=== PATIENT | female | born 1960 | race Caucasian/White ===

== ENCOUNTER → 2024-09-30 | Outpatient (CLI) | payer MEDICARE, SELFPAY ==
--- NOTE | 2024-09-30 13:59 | RAD_ITS ---
PROCEDURE: FINGER(S) MIN 2 VIEWS 09/30/2024 REASON FOR EXAM: CYST 5TH FINGER TECHNIQUE: FINGER(S) MIN 2 VIEWS LEFT 5TH FINGER. COMPARISON: None. FINDINGS: Well-defined 1.4 x 1.2 cm soft tissue lesion is noted overlying the dorsal/distal aspect of the middle phalanx. Mild osteopenia of the visualized bones. Degenerative joint disease. No fracture or dislocation is seen. No lytic or blastic bone lesion is noted. RAD/Finger(s) Min 2 Views IMPRESSION: Well-defined 1.4 x 1.2 cm soft tissue lesion is noted overlying the dorsal/dist al aspect of the middle phalanx. No radiographic evidence of an associated significant erosive bone abnormality. No bony mass is identified. Reading Location[facility]
--- OUTSIDE RECORDS SUMMARY | 2024-09-30 15:42 | XMS RPT_ITS | CCD ---
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 Carlos Primary Care Unavailable Zarrabi, Dr. Carlos Attending Unavailable Zarrabi, Dr. Carlos Referring Unavailable Zarrabi, Dr. Carlos Primary Care Unavailable Zarrabi, Dr. Carlos Attending Unavailable Zarrabi, Dr. Carlos Referring Unavailable Zarrabi, Dr. Carlos Primary Care Unavailable Brady Becker Attending Unavailable Zarrstephanie, Dr. Carlos Primary Care Unavailable Brady Becker Attending Unavailable Brady Becker Referring Unavailable Breanna Obrien Primary Care Unavailable Breanna Obrien Primary Care Unavailable , Dr. Greg Arevalo Attending Unavail able Dr. Greg Xiao Referring Unavail able MD NADIR NEGRON Admitting U navailable MD NADIR NEGRON Attending U navailable Breanna Obrien Primary Care Unavailable Breanna Obrien Referring Unavailable Breanna Obrien MD Primary Care Provider Breanna Obrien MD Unavailable Breanna Obrien MD Unavailable BREANNA OBRIEN Referring Unavailable [facility] Primary Care Unavailable BRADY BECKER Referring Unavailable [facility] Primary Care Unavailable Breanna Obrien MD Primary Care Provider Breanna Obrien MD Unavailable BRADY BECKER Attending Unavailable [facility] Primary Care Unavailable [facility] Attending Unavailable [facility] Primary Care Unavailable Elpidio HART, Dr. Nair Primary Care Provider Dr. Joanie Magallanes DO Referring Provider [phone] Dr. Sanjiv Cancino MD Attending Provider [phone] Medications Current Medications Medication Drug Class(es) Dates Sig (Normalized) Sig (Original) azithromycin 250 mg oral tablet (1 source) Macrolide Antimicrobial Start: 01-15-2021 Azithromycin 250 MG Oral Tablet TAKE DIRECTED. Quantity: 6 Refills: 0 Ordered: 15-Jan-2021 Breanna Obrien MD Start : 15-Jan-2021 Active Start: 01-15-2021 Azithromycin 2 50 MG Oral Tablet TAKE DIRECTED. Quantity: 6 Refills: 0 Ordered: 15-Jan-2021 Breanna Obrien MD Start : 15-Jan-2021 Active brompheniramine maleate 0.4 mg/ml / dextromethorphan hydrobromide 2 mg/ml / pseudoephedrine hydrochloride 6 mg/ml oral solution (1 source) alpha-Adrenergic Agonist, Uncompetitive U-qerjec-V-aspartate Receptor Antagonist, Sigma-1 Agonist Start: 01-05-2021 take 5 mL by mouth four times daily brompheniramine/pseudoephedrine/dextrome thorphan [id number]/5 mL oral syrup ; 5 milliliter(s) orally 4 times a day MAY CAUSE DROWSINESS, DO NOT DRIVE Quantity: 120 Refills: 0 Ordered: 05-Jan-2021 Clifford Day Start: 05-Jan-2021 Generic Substitution Allowed Comments: May cause drowsiness. Alcohol may intensify this effect. Use care when operating dangerous machinery.Obtain medical advice before taking any non-prescription drugs as some may affect the action of this medication. Comment on above: May cause drowsiness . Alcohol may intensify this effect. Use care when operating dangerous machinery.Obtain medical advice before taking any non-prescription drugs as some may affect the action of this medication. cholecalciferol 52955 unt oral capsule (15 sources) Vitamin D Start: 07-05-2009 Cholecalciferol (D3-50) 5000 0 units Cap Take by mouth. 0 07/05/2009 Active Vitamin D 1000 U NIT TABS TAKE 1 TABLET DAILY. Quantity: 0 Refills: 0 Ordered: 20-Apr-2019 DO Active ciprofloxacin 500 mg oral tablet (1 source) Quinolone Antimicrobial Start: 04-20-2020 End: 01-15-2021 take 1 tablet by mouth twice daily Ciprofloxacin HCl - 500 MG Oral Tablet Take 1 tablet twice daily Quantity: 6 Refills: 0 Ordered: 20-Apr-2020 Breanna Obrien MD Start : 20-Apr-2020 End : 15-Jan-2021 Complete ergocalciferol 1.25 mg oral capsule (6 sources) Provitamin D2 Compound Start: 09-02-2024 take 1 capsule by mouth two times weekly ergocalciferol (Vitamin D-2) 1250 mcg (50,000 units) capsule Indications: Vitamin D deficiency Take 1 capsule (50,000 Units) by mouth 2 times a week. 8 capsule 09/02/2024 Active Start: 09-02-2024 [facility] ergocalciferol (Vitamin D-2) 1250 mcg (50,000 units) capsule Indications: Vitamin D deficiency Take 1 capsule (50,000 Units) by mouth 2 times a week. 8 capsule 09/02/2024 Active Start: 07-24-2023 End: 09-01-2024 take 1 capsule by mouth two times weekly ergocalciferol (Vitamin D-2) 1.25 MG (05863 UT) capsule Indications: Vitamin D deficiency Take 1 capsule (50,000 Units) by mouth 2 times a week. 8 capsule 07/24/2023 09/01/2024 Discontinued (Reorder) estradiol 0.1 mg/ml vaginal cream (17 sources) Estrogen Start: 03-14-2021 End: 04-02-2024 estradiol (Estrace) 0.01 % (0.1 mg/gram) vaginal cream Insert 0.5 Applicatorfuls (2 g) into the vagina once daily. 03/14/2021 04/02/2024 Discontinued (Med List Cleanup) Start: 03-14-2021 Estradiol 0.1 MG/GM Vaginal Cream Take 1g vaginally daily for two weeks. Then decrease to 1-3 times weekly to comfot. Quantity: 1 Refills: 3 Ordered: 14-Mar-2021 [id number] Sosa DO Start : 14-Mar-2021 Active ipratropium bromide 0.042 mg/actuat metered dose nasal spray (1 source) Anticholinergic Start: 01-05-2021 End: 01-09-2021 ipratropium 42 mcg/inh (0.06%) nasal spray ; 2 spray(s) intranasally every 8 hours Quantity: 1 Refills: 0 Ordered: 05-Jan-2021 Clifford Day Start: 05-Jan-2021 End: 09-Jan-2021 Generic Substitution Allowed Comments: For the nose.It is very important that you take or use this exactly as directed. Do not skip doses or discontinue unless directed by your doctor. Comment on above: For the nose.It is v chloe important that you take or use this exactly as directed. Do not skip doses or discontinue unless directed by your doctor. levothyroxine (20 sources) l-Thyroxine Start: 09-30-2024 take 1 tablet by mouth once daily Levothyroxine 150 mcg tablet Active 150 ug PO daily September 30, 2024 12:00am Start: 09-29-2024 take 1 tablet by yakov th once daily levothyroxine (Synthroid, Levoxyl) 125 mcg tablet Indications: Adult hypothyroidism Take 1 tablet (125 mcg) by mouth once daily. 30 tablet 09/29/2024 Active Start: 08-03-2024 End: 09-29-2024 take 1 tablet by mouth once daily levothyroxine (Synthroid, Levoxyl) 150 mcg tablet Indications: Adult hypothyroidism Take 1 tablet (150 mcg) by mouth once daily. 30 tablet 09/01/2024 09/29/2024 Discontinued (Reorder) Start: 06-19-2023 End: 07-23-2023 take 1 tablet by mouth once daily levothyroxine (Synthroid, Levoxyl) 150 mcg tablet Indications: Adult hypothyroidism Take 1 tablet (150 mcg) by mouth once daily. 30 tablet 11 07/23/2023 Active Start: 01-25-2016 take 1 tablet by yakov th once daily levothyroxine 175 MCG Tab tablet TAKE 1 TABLET BY MOUTH EVERY DAY 0 01/25/2016 Active take 1 tablet by yakov th once daily levothyroxine (Synthroid, Levoxyl) 150 mcg tablet Take 1 tablet (150 mcg) by mouth once daily. 0 Active take 1 tablet by yakov th once daily Levothroid 175 mcg (0.175 mg) oral tablet ; 1 tab(s) orally once a day Quantity: 0 Refills: 0 Ordered: 15-Mar-2019 Madiha Murdock Generic Substitution Allowed lisinopril 10 mg oral tablet (20 sources) Angiotensin Converting Enzyme Inhibitor Start: 08-30-2024 End: 09-01-2024 take 1 tablet by mouth once daily Lisinopril 10 mg tablet Active 10 mg PO daily September 30, 2024 12:00am Start: 06-19-2023 End: 07-23-2023 take 1 tablet by mouth once daily lisinopril 10 mg tablet Indications: Benign essential HTN Take 1 tablet (10 mg) by mouth once daily. 30 tablet 11 07/23/2023 Active Start: 12-28-2018 lisinopril 10 MG Tab tablet 10 mg daily. 11 12/28/2018 Active metFORMIN hydrochloride 500 mg oral tablet (3 sources) Biguanide Start: 09-29-2024 take 1 tablet by mouth once daily at breakfast metFORMIN (Glucophage) 500 mg tablet Indications: Impaired fasting glucose Take 1 tablet (500 mg) by mouth once daily with breakfast. 90 tablet 3 09/29/2024 Active Start: 09-19-2024 End: 09-29-2024 take 0.5 tablet by mouth once daily at breakfast metFORMIN (Glucophage) 500 mg tablet Indications: Impaired fasting glucose Take 0.5 tablets (250 mg) by mouth once daily with breakfast. 45 tablet 3 09/19/2024 09/29/2024 Discontinued (Reorder) Start: 09-01-2024 take 0.5 tablet by m outh once daily at breakfast metFORMIN (Glucophage) 500 mg tablet Indications: Impaired fasting glucose Take 0.5 tablets (250 mg) by mouth once daily with breakfast. 15 tablet 11 09/01/2024 Active methylPREDNISolone 4 MG Oral Tablet Therapy Pack (1 source) Start: 01-15-2021 methylPREDNISolone 4 MG Oral Tablet Therapy Pack as directed Quantity: 21 Refills: 0 Ordered: 15-Jan-2021 Breanna Obrien MD Start : 15-Jan-2021 Active Multivitamin preparation (1 source) take 1 tablet by mouth once daily Multiple Vitamins oral tablet ; 1 tab(s) orally once a day Quantity: 0 Refills: 0 Ordered: 15-Mar-2019 Madiha Murdock Generic Substitution Allowed phenazopyridine hydrochloride 200 mg delayed release oral tablet (1 source) Start: 04-20-2020 End: 01-15-2021 take 1 tablet by mouth three times daily after mealtime as needed Phenazopyridine HCl - 200 MG Oral Tablet TAKE 1 TABLET 3 TIMES DAILY AFTER MEALS NEEDED Quantity: 9 Refills: 0 Ordered: 20-Apr-2020 Breanna Obrien MD Start : 20-Apr-2020 End : 15-Jan-2021 Complete phenol 14 mg/ml mucosal spray (1 source) Start: 01-05-2021 take 1 spray(s) by mouth every two hours Chloraseptic [place] 1.4% topical spray ; 1 spray(s) orally every 2 hours Quantity: 1 Refills: 0 Ordered: 05-Jan-2021 Clifford Day Start: 05-Jan-2021 Generic Substitution Allowed Comments: For external use only. Comment on above: For external use onl y. valACYclovir 1000 mg oral tablet (1 source) Herpesvirus Nucleoside Analog DNA Polymerase Inhibitor, Herpes Simplex Virus Nucleoside Analog DNA Polymerase Inhibitor, Herpes Zoster Virus Nucleoside Analog DNA Polymerase Inhibitor Start: 01-18-2019 End: 01-25-2019 take 1 tablet by mouth three times daily valacyclovir 1 g Tab Take 1 tablet by mouth 3 times daily for 7 days. 21 tablet 0 01/18/2019 01/25/2019 Active Problems Active Problems Problem Classification Problem Date Documented Date Episodic/Chronic Anxiety disorders (20 sources) Mixed anxiety and depressive disorder; Translations: [Dysthymic disorder] Onset: 06-23-2023 06-23-2023 Chronic Calculus of urinary tract (13 sources) History of calculus of kidney; Translations: [Personal history of urinary calculi] Episodic Diabetes mellitus without complication (20 sources) Impaired glucose tolerance; Translations: [Impaired glucose tolerance test (oral)] Onset: 06-23-2023 Resolved: 09-01-2024 07-02-2023 Episodic Disorders of lipid metabolism (20 sources) Hyperlipidemia; Translations: [Other and unspecified hyperlipidemia] Onset: 06-23-2023 07-02-2023 Chronic Essential hypertension (20 sources) Benign essential hypertension; Translations: [Benign essential hypertension] Onset: 06-23-2023 07-02-2023 Chronic Genitourinary symptoms and ill-defined conditions (12 sources) Dysuria; Translations: [Dysuria] Episodic Hypertension with complications and secondary hypertension (1 source) Secondary hypertension; Translations: [Secondary hypertension, unspecified] 07-02-2023 Chronic Malaise and fatigue (3 sources) Fatigue; Translations: [Chronic fatigue, unspecified] Onset: 09-01-2024 09-01-2024 Chronic Malaise and fatigue (3 sources) Fatigue; Translations: [Other malaise and fatigue] 07-02-2023 Episodic Menopausal disorders (19 sources) Menopausal symptom; Translations: [Symptomatic menopausal or female climacteric states] Onset: 06-23-2023 06-23-2023 Chronic Nutritional deficiencies (13 sources) Vitamin D deficiency; Translations: [Vitamin D deficiency, unspecified] Onset: 07-05-2009 07-02-2023 Chronic Other and unspecified benign neoplasm (1 source) Personal history of colonic polyps; Translations: [Personal history of colonic polyps] Onset: 06-06-2022 Episodic Other circulatory disease (1 source) Pulmonary congestion ; Translations: [Other symptoms involving respiratory system and chest] Episodic Other connective tissue disease (2 sources) Pain in finger; Translations: [Pain in limb] Episodic Other connective tissue disease (1 source) Digital mucous cyst of left hand; Translations: [Ganglion, left hand] 09-30-2024 Episodic Other lower respiratory disease (2 sources) Cough; Translations: [Cough] Episodic Other nutritional; endocrine; and metabolic disorders (12 sources) Obesity; Translations: [Obesity, unspecified] Chronic Other nutritional; endocrine; and metabolic disorders (11 sources) Body mass index 40+ - severely obese; Translations: [Morbid obesity] Onset: 09-01-2024 09-01-2024 Chronic Other nutritional; endocrine; and metabolic disorders (11 sources) Hypocalcemia; Translations: [Hypocalcemia] Onset: 06-23-2023 07-02-2023 Chronic Other nutritional; endocrine; and metabolic disorders (8 sources) Obese class II; Translations: [Obesity, unspecified] Onset: 01-18-2019 06-23-2023 Chronic Other nutritional; endocrine; and metabolic disorders (14 sources) H/O: nutritional disorder; Translations: [Personal history of nutritional deficiency] Episodic Other nutritional; endocrine; and metabolic disorders (1 source) Obese class II; Translations: [Obesity, Class II, BMI 35-39.9] Onset: 01-18-2019 01-18-2019 Other skin disorders (11 sources) Senile hyperkeratosis; Translations: [Actinic keratosis] Episodic Other skin disorders (2 sources) Lump on finger; Translations: [Localized superficial swelling, mass, or lump] Episodic Other skin disorders (2 sources) Trachyonychia; Translations: [Other specified diseases of nail] Episodic Residual codes; unclassified (14 sources) H/O: ; Translations: [Personal history of other genital system and obstetric disorders] Episodic Comment on above: 05/14/1979-42 WEEKS, VAGIMAL, FEMALE,#7 7oz07/24/1982-40 WEEKS, VAGINAL, MALE, #8 14oz; Residual codes; unclassified (19 sources) History of clinical finding in subject; Translations: [Asymptomatic postmenopausal status (age-related) (natural)] Episodic Comment on above: 2007; Residual codes; unclassified (13 sources) Influenza vaccination declined; Translations: [Vaccination not carried out because of patient refusal] Episodic Comment on above: PT DECLINED ; Residual codes; unclassified (5 sources) Postmenopausal state; Translations: [Asymptomatic postmenopausal status (age-related) (natural)] 07-02-2023 Episodic Screening and history of mental health and substance abuse codes (2 sources) Screening - NAD; Translations: [Screening for depression] Episodic Thyroid disorders (20 sources) Hypothyroidism; Translations: [Unspecified acquired hypothyroidism] Onset: 06-23-2023 07-02-2023 Chronic Unclassified (6 sources) Patient encounter status; Translations: [History of Encounter for cervical Pap smear with pelvic exam] 04-02-2024 Unclassified (2 sources) COUGH/ INCREASED TEMP & SORE THROAT 09-24-2021 Comment on above: COUGH/ INCREASED TEM P & SORE THROAT Unclassified (1 source) Patient encounter procedure 2020 Comment on above: YEARLY Urinary tract infections (1 source) Acute cystitis; Translations: [Acute cystitis] Episodic Viral infection (2 sources) Herpes zoster without complication; Translations: [Disease caused by 2019-nCoV] Episodic Past or Other Problems Problem Classification Problem Date Documented Da te Episodic/Chronic Abdominal pain (13 sources) Inguinal pain; Translations: [Abdominal pain, other specified site] Onset: 06-23-2023 Resolved: 07-02-2023 07-02-2023 Episodic Other and unspecified benign neoplasm (10 sources) Polyp of colon; Translations: [Benign neoplasm of colon] Onset: 06-23-2023 06-23-2023 Episodic Other bone disease and musculoskeletal deformities (20 sources) Osteopenia; Translations: [Disorder of bone and cartilage, unspecified] Onset: 06-23-2023 06-23-2023 Episodic Other connective tissue disease (20 sources) Fibromyalgia; Translations: [Myalgia and myositis, unspecified] Onset: 06-23-2023 06-23-2023 Episodic Other connective tissue disease (10 sources) Ganglion cyst; Translations: [Ganglion, unspecified] Onset: 06-23-2023 06-23-2023 Episodic Other infections; including parasitic (20 sources) Personal history of other infectious and parasitic diseases; Translations: [History of COVID-19] Onset: 06-23-2023 06-23-2023 Episodic Other liver diseases (17 sources) Elevated total bilirubin; Translations: [Disorders of bilirubin excretion] Onset: 07-23-2023 07-23-2023 Episodic Other screening for suspected conditions (not mental disorders or infectious disease) (20 sources) Liver function tests abnormal; Translations: [Thyroid hormone tests abnormal] Onset: 03-26-2022 Resolved: 07-02-2023 Episodic Residual codes; unclassified (20 sources) Past history of procedure; Translations: [Other specified personal history presenting hazards to health] Onset: 10-22-2018 Episodic Comment on above: OSTEOPENIA LUMBAR ; 03/17/20 BenignCAT 2; 04/02/2021: WNL1 BenignCAT 2; Residual codes; unclassified (20 sources) Insomnia; Translations: [Insomnia, unspecified] Onset: 06-23-2023 06-23-2023 Episodic Residual codes; unclassified (2 sources) Asymptomatic menopausal state; Translations: [Asymptomatic menopausal state] Onset: 07-09-2023 Episodic Spondylosis; intervertebral disc disorders; other back problems (20 sources) Chronic low back pain; Translations: [Lumbar radiculopathy] Onset: 06-23-2023 06-23-2023 Episodic Unclassified (1 source) Cancer cervix screening status; Translations: [Screening for cervical cancer] Unclassified (1 source) History of clinical finding in subject; Translations: [History of menopause] Unclassified (8 sources) Onset: 07-02-2023 Resolved: 09-29-2024 07-02-2023 NEGATED: Highlighted row has not occurred!Residual codes; unclassified (3 sources) Disease Episodic Results Test Name Value Interpretation Reference Range Facility BI MAMMO BILATERAL SCREENING TOMOSYNTHESISon 04-26-2024 BI MAMMO BILATERAL SCREENING TOMOSYNTHESIS Interpreted By: Ayush Michele, STUDY: BI MAMMO BILATERAL SCREENING TOMOSYNTHESIS; 04/26/2024 9:20 am ACCESSION NUMBER(S): [id number] ORDERING CLINICIAN: BRADY BECKER INDICATION: Screening. COMPARISON: Digital mammograms dated 04/24/2023 FINDINGS: CC and MLO 2D digital mammograms and digital breast tomosynthesis images were obtained of the bilateral breasts. 3-D volume images were reconstructed in 4 views at an independent workstation as 1 mm slices through the breasts in both the CC and MLO projections. Density: The breasts are almost entirely fatty. Scattered small rounded masses are seen bilaterally, similar to the prior study. No new or enlarging mass or focal asymmetry is identified. No suspicious microcalcifications or foci of architectural distortion are seen. There has been no significant change. This study was interpreted with CAD. IMPRESSION: No mammographic evidence of malignancy. BI-RADS CATEGORY: BI-RADS Category: 2 Benign. Recommendation: Annual Screening. Recommended Date: 1 Year. Laterality: Bilateral. MACRO: None Signed by: Ayush Michele 04/26/2024 11:50 AM Dictation workstation: [id number] [facility] DBT Breast - bilateralon No mammographic evid ence of malignancy. BI-RADS CATEGORY: BI-RADS Category: 2 Benign. Recommendation: Annual Screening. Recommended Date: 1 Year. Laterality: Bilateral. MACRO: None Signed by: Ayush Michele 04/26/2024 11:50 AM Dictation workstation: [id number] MMODAL Interpreted By: Ayush Lynch, STUDY: BI MAMMO BILATERAL SCREENING TOMOSYNTHESIS; 04/26/2024 9:20 am ACCESSION NUMBER(S): [id number] ORDERING CLINICIAN: BRADY BECKER INDICATION: Screening. COMPARISON: Digital mammograms dated 04/24/2023 FINDINGS: CC and MLO 2D digital mammograms and digital breast tomosynthesis images were obtained of the bilateral breasts. 3-D volume images were reconstructed in 4 views at an independent workstation as 1 mm slices through the breasts in both the CC and MLO projections. Density: The breasts are almost entirely fatty. Scattered small rounded masses are seen bilaterally, similar to the prior study. No new or enlarging mass or focal asymmetry is identified. No suspicious microcalcifications or foci of architectural distortion are seen. There has been no significant change. This study was interpreted with CAD. MMODAL Ayush Michele MD - 04/26/2024 Interpreted By: Ayush Michele, STUDY: BI MAMMO BILATERAL SCREENING TOMOSYNTHESIS; 04/26/2024 9:20 am ACCESSION NUMBER(S): [id number] ORDERING CLINICIAN: BRADY BECKER INDICATION: Screening. COMPARISON: Digital mammograms dated 04/24/2023 FINDINGS: CC and MLO 2D digital mammograms and digital breast tomosynthesis images were obtained of the bilateral breasts. 3-D volume images were reconstructed in 4 views at an independent workstation as 1 mm slices through the breasts in both the CC and MLO projections. Density: The breasts are almost entirely fatty. Scattered small rounded masses are seen bilaterally, similar to the prior study. No new or enlarging mass or focal asymmetry is identified. No suspicious microcalcifications or foci of architectural distortion are seen. There has been no significant change. This study was interpreted with CAD. IMPRESSION: No mammographic evidence of malignancy. BI-RADS CATEGORY: BI-RADS Category: 2 Benign. Recommendation: Annual Screening. Recommended Date: 1 Year. Laterality: Bilateral. MACRO: None Signed by: Ayush Michele 04/26/2024 11:50 AM Dictation workstation: [id number] [facility] Work Phone: Radiology Study observation (narrative) [facility] Work Phone: DBT Breast - bilateralOrdere d By: Ayush Michele on 04-26-2024 [facility] Work Phone: Cervical AND or Vaginal cyto logy studyon 04-02-2024 Cytology Cervical or vaginal smear or scraping study Pathology report.total SEE COMMENT Gynecologic Cytology Case: [id number] Authorizing Provider: Brady Becker MD Collected: 04/02/2024 0840 Ordering Location: [facility] Received: 04/02/2024 0840 Office Building First Screen: TOM Bee Specimen: ThinPrep Liquid-Based Pap-Imaging System Screen, CERVIX, SCREENING Cytology study comment SEE COMMENT A. THINPREP PAP CERVIX, SCREENING - Specimen Adequacy Satisfactory for evaluation; endocervical/transformation zone component is present General Categorization Negative for intraepithelial lesion or malignancy. Descriptive Interpretation Negative for intraepithelial lesion or malignancy Specimen does not meet the requisition-stated criteria for HPV testing. See Pap test interpretation above. Laboratory comment SEE COMMENT Slide(s) initially screened by TOM QUINONES at [address] [id number] By the signature on this report, the individual or group listed as making the Final Interpretation/Diagnosis certifies that they have reviewed this case. This specimen has been analyzed by the ThinPrep Imaging System ([employer] an automated imaging and review system, which assists the laboratory in evaluating cells on ThinPrep Pap tests. Following automated imaging, selected jurado from every slide were reviewed by a garment patternmaker and/or pathologist. Cervical cytology is a screening procedure primarily for squamous cancers and precursors and has associated false-negative and false-positives results as evidenced by published data. Your patient's test should be interpreted in this context, together with the patient's history and clinical findings. Regular sampling and follow-up of unexplained clinical signs and symptoms are recommended to minimize false negative results. LAB AP HPV HR Reflex if ASCUS only LAB AP HPV GENOTYPE QUESTION Yes Menstrual History Post-menopausal Normal [facility] Ambulatory DEXA BONE DENSITYon 07-09-19 24 DEXA BONE DENSITY Interpreted By: Ayush Lynch, STUDY: DEXA BONE DENSITY07/09/2023 7:59 am INDICATION: Signs/Symptoms:screening. The patient is a 63 y/o year old F. COMPARISON: 01/08/2019 ACCESSION NUMBER(S): [id number] ORDERING CLINICIAN: BREANNA OBRIEN TECHNIQUE: DEXA BONE DENSITY FINDINGS: SPINE L1-L4 Bone Mineral Density: 1.105 T-Score -0.7 Z-Score 0.8 Bone Mineral Density change vs baseline: Not reported Bone Mineral Density change vs previous: Not reported LEFT FEMUR -TOTAL Bone Mineral Density: 0.942 T-Score -0.5 Z-Score 0.6 Bone Mineral Density change vs baseline: Not reported Bone Mineral Density change vs previous: Not reported LEFT FEMUR -NECK Bone Mineral Density: 0.846 T-Score -1.4 Z-Score 0.0 RIGHT FEMUR -TOTAL Bone Mineral Density: 0.995 T-Score -0.1 Z-Score 1.0 Bone Mineral Density change vs baseline: Not reported Bone Mineral Density change vs previous: Not reported RIGHT FEMUR -NECK Bone Mineral Density: 0.917 T-Score -0.9 Z-Score 0.6 World Health Organization (WHO) criteria for post-menopausal, Women: Normal: T-score at or above -1 SD Osteopenia: T-score between -1 and -2.5 SD Osteoporosis: T-score at or below -2.5 SD 10-year Fracture Risk: Major Osteoporotic Fracture 7.5 Hip Fracture 0.6 Note: If no FRAX score is reported, it is because: Some T-score for Spine Total or Hip Total or Femoral Neck at or below -2.5 This exam was performed at Health system's [facility] on a [employer] Advanced Dexa Unit. IMPRESSION: DEXA: According to World Health Organization criteria, classification is low bone mass (osteopenia) Followup recommended in two years or sooner as clinically warranted. All images and detailed analysis are available on the Radiology PACS. MACRO: None Signed by: Ayush Michele 07/09/2023 11:21 AM Dictation workstation: [id number] [facility] DXA Skeletal system Views fo r bone densityon 07-09-2023 DEXA: According to W orld Health Organization criteria, classification is low bone mass (osteopenia) Followup recommended in two years or sooner as clinically warranted. All images and detailed analysis are available on the Radiology PACS. MACRO: None Signed by: Ayush Michele 07/09/2023 11:21 AM Dictation workstation: [id number] MMODAL Interpreted By: Ayush Lynch, STUDY: DEXA BONE DENSITY07/09/2023 7:59 am INDICATION: Signs/Symptoms:screening. The patient is a 63 y/o year old F. COMPARISON: 01/08/2019 ACCESSION NUMBER(S): [id number] ORDERING CLINICIAN: BREANNA OBRIEN TECHNIQUE: DEXA BONE DENSITY FINDINGS: SPINE L1-L4 Bone Mineral Density: 1.105 T-Score -0.7 Z-Score 0.8 Bone Mineral Density change vs baseline: Not reported Bone Mineral Density change vs previous: Not reported LEFT FEMUR -TOTAL Bone Mineral Density: 0.942 T-Score -0.5 Z-Score 0.6 Bone Mineral Density change vs baseline: Not reported Bone Mineral Density change vs previous: Not reported LEFT FEMUR -NECK Bone Mineral Density: 0.846 T-Score -1.4 Z-Score 0.0 RIGHT FEMUR -TOTAL Bone Mineral Density: 0.995 T-Score -0.1 Z-Score 1.0 Bone Mineral Density change vs baseline: Not reported Bone Mineral Density change vs previous: Not reported RIGHT FEMUR -NECK Bone Mineral Density: 0.917 T-Score -0.9 Z-Score 0.6 World Health Organization (WHO) criteria for post-menopausal, Women: Normal: T-score at or above -1 SD Osteopenia: T-score between -1 and -2.5 SD Osteoporosis: T-score at or below -2.5 SD 10-year Fracture Risk: Major Osteoporotic Fracture 7.5 Hip Fracture 0.6 Note: If no FRAX score is reported, it is because: Some T-score for Spine Total or Hip Total or Femoral Neck at or below -2.5 This exam was performed at [facility] on a [employer] Advanced Dexa Unit. Ayush Segundo MD - 07/09/2023 Interpreted By: Ayush Michele, STUDY: DEXA BONE DENSITY07/09/2023 7:59 am INDICATION: Signs/Symptoms:screening. The patient is a 63 y/o year old F. COMPARISON: 01/08/2019 ACCESSION NUMBER(S): [id number] ORDERING CLINICIAN: BREANNA OBRIEN TECHNIQUE: DEXA BONE DENSITY FINDINGS: SPINE L1-L4 Bone Mineral Density: 1.105 T-Score -0.7 Z-Score 0.8 Bone Mineral Density change vs baseline: Not reported Bone Mineral Density change vs previous: Not reported LEFT FEMUR -TOTAL Bone Mineral Density: 0.942 T-Score -0.5 Z-Score 0.6 Bone Mineral Density change vs baseline: Not reported Bone Mineral Density change vs previous: Not reported LEFT FEMUR -NECK Bone Mineral Density: 0.846 T-Score -1.4 Z-Score 0.0 RIGHT FEMUR -TOTAL Bone Mineral Density: 0.995 T-Score -0.1 Z-Score 1.0 Bone Mineral Density change vs baseline: Not reported Bone Mineral Density change vs previous: Not reported RIGHT FEMUR -NECK Bone Mineral Density: 0.917 T-Score -0.9 Z-Score 0.6 World Health Organization (WHO) criteria for post-menopausal, Women: Normal: T-score at or above -1 SD Osteopenia: T-score between -1 and -2.5 SD Osteoporosis: T-score at or below -2.5 SD 10-year Fracture Risk: Major Osteoporotic Fracture 7.5 Hip Fracture 0.6 Note: If no FRAX score is reported, it is because: Some T-score for Spine Total or Hip Total or Femoral Neck at or below -2.5 This exam was performed at [facility] on a [employer] Advanced Dexa Unit. IMPRESSION: DEXA: According to World Health Organization criteria, classification is low bone mass (osteopenia) Followup recommended in two years or sooner as clinically warranted. All images and detailed analysis are available on the Radiology PACS. MACRO: None Signed by: Ayush Michele 07/09/2023 11:21 AM Dictation workstation: [id number] [facility] Work Phone: Radiology Study observation (narrative) [facility] Work Phone: DXA Skeletal system Views fo r bone densityOrdered By: Ayush Michele on 07-09-2023 [facility] Work Phone: Colonoscopyon 06-06-2022 Colonoscopy PATIENTNAME Patient Name: Yayo Chen EXAMDATE Procedure Date: 06/06/2022 7:17 AM PATIENTID PATIENTACCOUNTNUM PATIENTDOB Date of : 1960 ADMITTYPE Admit Type: Outpatient PATIENTROOM Site: [facility] ETHNICITY Ethnicity: Not or RACE Race: White PROVDR Attending MD: Nadir Negron MD, [id number] ENDOPROCEDURENAME Procedure: Colonoscopy INDICATION Indications: High risk colon cancer surveillance: Personal history of colonic polyps PRIMARYPROVIDER Providers: Nadir Negron MD (Doctor), Ale Wong RN (Nurse), Leigh Smith RN (Nurse) EDREFPROVIDER Referring: Breanna Obrien MD CURRENT_MEDS Medicines: Midazolam 2.5 mg IV, Meperidine 50 mg IV COMPLIC Complications: No immediate complications. ENDOPROCEDURETEXT Procedure: Pre-Anesthesia Assessment: - Prior to the procedure, a History and Physical was performed, and patient medications and allergies were reviewed. The patient's tolerance of previous anesthesia was also reviewed. The risks and benefits of the procedure and the sedation options and risks were discussed with the patient. All questions were answered, and informed consent was obtained. Prior Anticoagulants: The patient has taken no anticoagulant or antiplatelet agents. ASA Grade Assessment: II - A patient with mild systemic disease. After reviewing the risks and benefits, the patient was deemed in satisfactory condition to undergo the procedure. After I obtained informed consent, the scope was passed under direct vision. Throughout the procedure, the patient's blood pressure, pulse, and oxygen saturations were monitored continuously. The pediatric colonoscope was introduced through the anus and advanced to the cecum, identified by the appendiceal orifice, IC valve and transillumination. The colonoscopy was performed without difficulty. The patient tolerated the procedure well. The quality of the bowel preparation was good. The ileocecal valve, appendiceal orifice, and rectum were photographed. The entire colon was examined. FINDING Findings: Multiple medium-mouthed diverticula were found in the sigmoid colon. The exam was otherwise without abnormality on direct and retroflexion views. SEDATION Moderate Sedation: Moderate (conscious) sedation was administered by the nurse and supervised by the endoscopist. The following parameters were monitored: oxygen saturation, heart rate, blood pressure, and response to care. Total physician intraservice time was 10 minutes. EBL Estimated Blood Loss: Estimated blood loss: none. IMPRESS Impression: - Diverticulosis in the sigmoid colon. - The examination was otherwise normal on direct and retroflexion views. - No specimens collected. ENDORECOMMENDATION Recommendation: - Patient has a contact number available for emergencies. The signs and symptoms of potential delayed complications were discussed with the patient. Return to normal activities tomorrow. Written discharge instructions were provided to the patient. - Resume previous diet. - Continue present medications. - Repeat colonoscopy in 5 years for surveillance. - Return to primary care physician as previously scheduled. CPT_CODES Procedure Code(s): --- Professional --- 60494, Colonoscopy, flexible; diagnostic, including collection of specimen(s) by brushing or washing, when performed (separate procedure) G0500, Moderate sedation services provided by the same physician or other qualified health day care assistant performing a gastrointestinal endoscopic service that sedation supports, requiring the presence of an independent trained observer to assist in the monitoring of the patient's level of consciousness and physiological status; initial 15 minutes of intra-service time; patient age 5 years or older (additional time may be reported with 90276, as appropriate) ICD_CODES Diagnosis Code(s): --- Professional --- Z12.11, Encounter for screening for malignant neoplasm of colon Z86.010, Personal history of colonic polyps K57.30, Diverticulosis of large intestine without perforation or abscess without bleeding CODINGSTMT CPT copyright 2020 [employer]. All rights reserved. The codes documented in this report are preliminary and upon brick chimney builder review may be revised to meet current compliance requirements. ATTDRPART Attending Participation: I personally performed the entire procedure. SIGNATURENAME Nadir Negron MD SIGNATUREDATE 06/06/2022 7:53:00 AM SIGNATUREONFILEIND This report has been signed electronically. NUMADDENDA Number of Addenda: 0 INITIATEDON Note Initiated On: 06/06/2022 7:17 AM WSCOPETIME Scope Withdrawal Time 0 hours 6 minutes 56 seconds TOTPROCTIME Total Procedure Duration Time 0 hours 9 minutes 6 seconds Normal [facility] Office Visit (Internal Medic ine)on 05-01-2022 Follow-up visit Diagnoses/Problems Assessed Benign essential hypertension (401.1) (I10) Pain in finger (729.5) (M79.646) Lump on finger (782.2) (R22.30) Adult hypothyroidism (244.9) (E03.9) Glucose intolerance (impaired glucose tolerance) (790.22) (R73.02) Total bilirubin, elevated (277.4) (R17) Borderline hyperlipidemia (272.4) (E78.5) Postmenopausal (V49.81) (Z78.0) Depression screening negative (V79.0) (Z13.31) Colon polyp (211.3) (K63.5) Ganglion cyst (727.43) (M67.40) Hypocalcemia (275.41) (E83.51) Brittle nails (703.8) (L60.3) Orders Benign essential hypertension Renew: Lisinopril 10 MG Oral Tablet; TAKE 1 TABLET DAILY Rx By: Breanna Obrien; Dispense: 30 Days ; #:30 Tablet; Refill: 11;For: Benign essential hypertension; MARISELA = N; Verified Transmission to [facility]; Last Updated By: NevaREHAPP; 05/01/2022 8:41:19 AM Pain in finger Xray Hand Min 3 View; Status:Hold For - Scheduling,Retrospective Authorization; Requested for:01May2022; Perform: [facility]; Due:30Jul2022; Last Updated By:Sheila Reed; 05/01/2022 11:22:43 AM;Ordered; For:Pain in finger; Ordered By:Breanna Obrien; Laterality : Left Radiologist to Determine Optimal Study : Y What are the patient's signs and symptoms? : 5TH DIGIT PAIN Postmenopausal Xray Bone Density, Dexa 1 or More Sites; Status:Hold For - Scheduling,Retrospective Authorization; Requested for:01May2022; Perform: [facility]; Due:30Jul2022; Last Updated By:Sheila Reed; 05/01/2022 11:22:43 AM;Ordered; For:Postmenopausal; Ordered By:Breanna Obrien; Radiologist to Determine Optimal Study : Y What are the patient's signs and symptoms? : 5TH DIGIT PAIN Unlinked Colonoscopy Screening; Status:Hold For - Scheduling; Requested for:01May2022; Perform:[facility]; Due:30Jul2022; Last Updated By:Sheila Reed; 05/01/2022 11:22:43 AM;Ordered; Ordered By:Beranna Obrien; Patient competent to provide consent? : Yes-pt mentally competent to provide consent Patient Discussion/Summary 2 WEEKS Screening colonoscopy for colon polyp BONE DENSITY XR OF L 5TH FINGER HANDOUT FOR DIABETIC DIET Provider Impressions TEST RESULTS WERE DISCUSSED. ADVISED TO FOLLOW THE LOW FAT, LOW CALORIE DIET AND TO EAT SMALLER PORTIONS MORE FREQUENT SERVINGS. ADVISED FOR REGULAR DAILY EXERCISE . ADVISED FOR WEIGHT LOSS. ADVISED TO APPLY WARM COMPRESSION AND TO USE OTC PAIN CREAM PRN AND TO WRAP THE FINGER. ADVISED TO TAKE THE OTC CA+D TO 600 MG PO BID AND TO INCREASE THE OTC VIT D3 TO 1000 UNIT BID. ADVISED TO MONITOR THE BP AND TO HAVE LOW SALT DIET, Chief Complaint [facility] ([facility]). MED REFILLS History of Present IllnessLAB F/U, MED REFILL. HAS CHRONC LUMP OF L 5TH FINGER X 2 YEARS ,WHICH HAS BEEN GETTING BIGGER SLOWLY. WITH PAIN 06/21 . NO H/O TRAUMA. PT IS RIGHT HANDED. BRITTLE NAILS . Review of Systems Constitutional: not feeling poorly, no fever, no recent weight gain and no recent weight loss. Eyes: no blurred vision and no diplopia. ENT: no hearing loss, no tinnitus, no earache, no sore throat, no hoarseness and no swollen glands in the neck. Cardiovascular: no chest pain, no tightness or heavy pressure, no shortness of breath, no palpitations and no lower extremity edema. Respiratory: no cough, not coughing up sputum and no wheezing that is consistent with asthma. Gastrointestinal: no change in bowel habits, no diarrhea, no constipation, no bloody stools, no nausea, no vomiting, no abdominal pain, no signs and symptoms of ulcer disease, no jessie colored stools and no intolerance to fatty foods. Genitourinary: no urinary frequency, no dysuria, no burning sensation during urination and no hematuria. Musculoskeletal: no arthralgias, no joint stiffness, no muscle weakness, no back pain, no difficulty walking and as noted in HPI. Skin: no rashes, no change in skin color and pigmentation, no skin lesions and no skin lumps. Neurological: no headaches, no dizziness, no seizures, no tingling, no numbness, no signs and symptoms of stroke and no limb weakness. Psychiatric: no confusion, no memory lapses or loss, no depression and no sleep disturbances. Endocrine: no goiter, no thyroid disorder, no diabetes mellitus, no excessive thirst, no dry skin, no cold intolerance, no heat intolerance and no increased urinary frequency. Hematologic/Lymphatic: is not slow to heal, does not bleed easily, does not bruise easily, no thrombophlebitis, no anemia and no history of blood transfusion. All other systems have been reviewed and are negative for complaint. Active Problems Problems Adult hypothyroidism (244.9) (E03.9) Benign essential hypertension (401.1) (I10) Borderline hyperlipidemia (272.4) (E78.5) Chronic low back pain (724.2,338.29) (M54.50,G89.29) Encounter for screening mammogram for high-risk patient (V76.11) (Z12.31) Fibromyalgia (729.1) (M79.7) Glucose intolerance (impaired gluco (more content not included)... Normal [employer] Tobacco Screening.on 023 Adult depression screening assessment No [facility] Work Phone: Fall risk assessment a) No falls within the last year [facility] Work Phone: Tobacco use status CP b) No [facility] Work Phone: Mamm - Screening Mammogram w / Tomosynthesison 04-12-2022 MG Breast Screening Normal [address] Work Phone: LMPon 03-26-2022 Last menstrual period start date [facility] [address] Work Phone: Laboratory - Cytologyon 03-14 Cytology report Cyto stain.thin prep Doc (Cvx/Vag) [facility] Work Phone: SHRINK PIT SUPERVISOR - Office Visiton 03-14 SHR[employer] PIT SUPERVISOR - Office Visit Diagnoses/Problems Assessed Women's annual routine gynecological examination (V72.31) (Z01.419) Screening for cervical cancer (V76.2) (Z12.4) Orders Mamm - Screening Mammogram w/ Tomosynthesis; Status:Hold For - Scheduling; Requested for:[id number]; Radiologist to Determine Optimal Study : Y What are the patient's signs and symptoms ? 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 Annual 2. Screening mammogram Follow-up in 1 year or as needed. Chief Complaint Patient is here for yearly exam. Patient does self breast exams regularly. LMP [facility] PT HAS NO CONCERNS. History of Present IllnessPresents for annual exam. She voices no complaints and is doing well. Denies any bowel or bladder problems. Denies any breast problems. Denies any postmenopausal bleeding. Review of Systems Review of Systems: Constitutional: No fever or chills Respiratory: No shortness of breath, or cough Cardiovascular: No chest pain or syncope Breasts: No breast pain, no masses, no nipple discharge Gastrointestinal: No nausea, vomiting, or diarrhea, no abdominal pain Genitourinary: No dysuria or frequency Gynecology: Negative except as noted in history of present illness All other: All other systems reviewed and negative for complaint Active Problems Problems Abnormal TSH (790.6) (R79.89) Adult hypothyroidism (244.9) (E03.9) Anxious depression (300.4) (F41.8) Benign essential hypertension (401.1) (I10) Borderline hyperlipidemia (272.4) (E78.5) Chronic low back pain (724.2,338.29) (M54.50,G89.29) Dysuria (788.1) (R30.0) Encounter for screening mammogram for high-risk patient (V76.11) (Z12.31) Extreme obesity (278.00) (E66.8) Fibromyalgia (729.1) (M79.7) Glucose intolerance (impaired glucose tolerance) (790.22) (R73.02) H/O abdominal pain (V13.89) (Z87.898) History of COVID-19 (V12.09) (Z86.16) History of kidney stones (V13.01) (Z87.442) Insomnia (780.52) (G47.00) Keratosis, senilis (702.0) (L57.0) Lumbar radicular pain (724.4) (M54.16) Menopausal symptoms (627.2) (N95.1) Morbid obesity with BMI of 40.0-44.9, adult (278.01,V85.41) (E66.01,Z68.41) Osteopenia (733.90) (M85.80) Screening for breast cancer (V76.10) (Z12.39) Screening for cervical cancer (V76.2) (Z12.4) Total bilirubin, elevated (277.4) (R17) Women's annual routine gynecological examination (V72.31) (Z01.419) Past Medical History Problems History of Encounter for cervical Pap smear with pelvic exam (V76.2,V72.31) (Z01.419) 10/06/2018; NIL H/O bone density study (V15.89) (Z92.89) OSTEOPENIA LUMBAR 01/08/19 H/O mammogram (V15.89) (Z92.89) 04/02/2021: WNL 03/17/20 Benign CAT 2 History of menopause (V49.81) (Z78.0) 2007 History of non anemic vitamin B12 deficiency (V12.1) (Z86.39) History of (V13.29) 05/14/1979-42 WEEKS, VAGIMAL, FEMALE,#7 7oz 07/24/1982-40 WEEKS, VAGINAL, MALE, #8 14oz History of Influenza vaccination declined (V64.06) (Z28.21) PT DECLINED Surgical History Problems History of Colonoscopy History of Endometrial ablation History of Thyroidectomy History of Tubal ligation Family History Mother Family history of chronic obstructive pulmonary disease (V17.6) (Z82.5) Family history of malignant neoplasm of female breast (V16.3) (Z80.3) mom 60s. Mat cousin 40s? Father Family history of diabetes mellitus (V18.0) (Z83.3) Family history of malignant neoplasm of urinary bladder (V16.52) (Z80.52) Grandparent Family history of cardiac disorder (V17.49) (Z82.49) Social History Problems Consumes alcohol occasionally (V49.89) (Z78.9) Does not use illicit drugs (V49.89) (Z78.9) Never smoked tobacco (V49.89) (Z78.9) Allergies Medication No Known Drug Allergies Recorded By: Aury aPtel; 04/20/2019 10:19:34 AM Current Meds Medication NameInstruction Estradiol 0.1 MG/GM Vaginal CreamTake 1g vaginally daily for two weeks. Then decrease to 1-3 times weekly to comfot. Levoxyl 150 MCG Oral TabletTake 1 tablet daily Lisinopril 10 MG Oral TabletTAKE 1 TABLET DAILY. Vitamin D 1000 UNIT TABSTAKE 1 TABLET DAILY. Vitals Vital Signs Recorded: [id number] 09:08AM Dfpgtfgg188 Fpgelhmja70 Height5 ft 3 in Awrqlh396.2 kg BMI Dhfpodhtip64.3 kg/m2 BSA Calculated2.04 LMPMENO Physical Exam PHYSICAL EXAMINATION: Well-developed, well nourished, in no acute distress, alert and oriented x three, is pleasant and cooperative. HEENT: Clear. Pupils equal, round and reactive to light and accommodation. Extraocular muscles are intact. Oral mucosa pink without exudate. NECK: No lymphadenopathy, no thyromegaly. BREASTS: Symmetric, no palpable masses. No nipple discharge or retraction. LUNGS: Clear bilaterally (more content not included)... Normal [facility] Mamm - Screening Mammogram w / Tomosynthesison 04-02-2021 MG Breast Screening [facility] [employer] Work Phone: Tobacco Screening.on 021 Fall risk assessment a) No falls within the last year [facility] [address] Work Phone: Tobacco use status [facility] b) No [facility] [address] Work Phone: No Panel Informationon 03-21 Normal [facility] Work Phone: LMPon 03-14-2021 Last menstrual period start date MENOPAUSE [facility] Work Phone: Tobacco Screening.on 021 Fall risk assessment a) No falls within the last year [facility] Work Phone: Tobacco use status [facility] b) No [facility] Work Phone: Tobacco Screening.on 021 Fall risk assessment a) No falls within the last year [facility] Work Phone: Tobacco use status [facility] b) No [facility] Work Phone: Tobacco Screening.on 021 Fall risk assessment a) No falls within the last year [facility] Work Phone: Tobacco use status [facility] b) No [facility] Work Phone: Coronavirus 2019 RNA by PCR, Symptomaticon 01-05-2021 Date and time of symptom onset [id number] [facility] Work Phone: Coronavirus 2019 RNA by PCR, Symptomatic Detected Abnormal See Below [facility] Work Phone: Comment on above: SOURCE: Nasal, Nasop haryngealReference Range: Not Detected.This assay is designed to detect the N, ORF1ab and/or S genes of SARS-CoV-2 via nucleic acid amplification. A Negative (NOT DETECTED) result does not preclude 2019-nCoV infection since the adequacy of sample collection and/or low viral burden may result in presence of viral nucleic acids below the clinical sensitivity of this test method. Negative (NOT DETECTED) result should not be used as the sole basis for treatment or other patient management decisions. Rather negative results should be combined with clinical observations, patient history, and epidemiological information to make patient management decisions.Fact sheet for providers: https://www.fda.gov/media/842441/downloadFact sheet for patients: https://www.fda.gov/media/264773/downloadThis test has received FDA Emergency Use Authorization (EUA) and has been verified by [facility] ([facility]). This test is only authorized for the duration of time that circumstances exist to justify the authorization of the emergency use of in vitro diagnostic tests for the detection of SARS-CoV-2 virus and/or diagnosis of COVID-19 infection under section 564(b)(1) of the Act, 21 U.S.C. 360bbb-3(b)(1), unless the authorization is terminated or revoked sooner. [facility] is certified under CLIA-88 as qualified to perform high complexity testing. Testing is performed in the [facility] laboratories located at [address] [place] [address]. Mamm - Screening Mammogram w / Tomosynthesison 03-17-2020 MG Breast screening Interpreted by: AYUSH MICHELE03/17/20 09:17MRN: [id number] Name: YAYO CHEN STUDY:Digital mammography screening with jennifer; 03/17/2020 7:57 am ORDERING CLINICIAN:CHOCO ESTRADA INDICATION:Screening. COMPARISON:Comparison is made to prior digital mammograms dated 10/22/2018 FINDINGS:CC and MLO 2D digital mammograms and digital breast tomosynthesisimages were obtained of the bilateral breasts. 3-D volume imageswere reconstructed in 4 views at an independent workstation as 1 mmslices through the breasts in both the CC and MLO projections. The breast tissue is almost entirely fatty. Well-definedintramammary lymph nodes are seen in the lateral aspects of thebreasts bilaterally, similar to prior studies. No new or enlargingmass or focal asymmetry is identified. No suspiciousmicrocalcifications or foci of architectural distortion are seen.There has been no significant change. This study was interpreted with CAD. IMPRESSION:No mammographic evidence of malignancy. BI-RADS CATEGORY: Category: 2 - Benign.Recommendation: 1 Year Screening.Electronically signed by: AYUSH MICHELE 03/17/20 09:17 Normal [facility] [place] [id number] [place] Work Phone: BD Bone Density DEXAon 01-08 BD Bone Density DEXA Exam Date/Time: 01/08/2019 08:18 EDT Reason for Exam: POST MENOPAUSAL;Post menopausal Report STUDY: BD Bone Density DEXA; 01/08/2019 8:18 am INDICATION: Post menopausal. Evaluate for osteopenia/osteoporosis, COMPARISON: None. ACCESSION NUMBER(S): [id number] ORDERING CLINICIAN: Breanna Obrien FINDINGS: Standard measurements were obtained utilizing an [employer] X-ray Absorptiometry bone densitometer. Data obtained includes planar bone density measurements over the left hip and lumbar spine. Comparison of measured data and standardized mean data for a young adult population (when peak bone mass occurs) results in a T score. This represents the number of standard deviations above or below the mean of a young adult population. Comparison of measured data to standards from an age-adjusted population similarly yields a Z score. Left femoral neck Bone density: 0.737 g/cm2 T score: -1.0 Z Score: 0.3 Lumbar Spine (L1-4) Bone density: 0.926 g/cm2 T Score: -1.1 overall and -1.4 at L3. Fracture risk is increased. Z Score: 0.3 World Health Organization (WHO) criteria defines normal bone density as that which is less than 1 standard deviation below the mean of a young adult population. Osteopenia is defined as a measured bone density that is between 1 and 2.5 standard deviations below the mean of a young adult population. Osteoporosis is defined as a measured bone density that is greater than or equal to 2.5 standard deviations below the mean of a young adult population. IMPRESSION: Exam Date/Time: 01/08/2019 08:18 EDT Report According to World Health Organization criteria, bone mineral density of the left femoral neck is within normal limits and lumbar spine is osteopenic. The patient is at increased risk for fracture. According to the World Health organization FRAX fracture risk assessment tool, the 10 year fracture risk for major osteoporotic fracture is 6.4 % and for hip fracture is 0.3 %. FINAL REPORT Dictated: 01/08/2019 3:36 pm Enoch Minor DO Signed (Electronic Signature): 01/08/2019 3:36 pm Signed by: Enoch Minor DO Technologist: DEWAYNE Normal [facility] IGP W/hpv Rfx [id number] 10-30 Diagnosis: See Ref Lab Report [facility] Comment on above: Performed By: #### 1 [id number] #### [place] [address] [place] Mamm Screen w/CAD if perf ormed bilaton 10-22-2018 [place] Mamm Screen w/CAD if performed bilat Exam Date/Time: 10/22/2018 07:51 EDT Reason for Exam: SCREENING;Screening Report STUDY: [place] Mamm Screen w/CAD if performed bilat; 10/22/2018 7:51 am ACCESSION NUMBER(S): [id number] ORDERING CLINICIAN: Suma Jackson INDICATION: Screening. COMPARISON: 03/25/2016, 02/08/2015 FINDINGS: The breast tissue is almost entirely fatty. No suspicious masses or calcifications are identified. CAD is utilized. IMPRESSION: No mammographic evidence of malignancy. BI-RADS CATEGORY: Category: 2 - Benign Finding. Recommendation: Normal Interval Follow-up, Over Age 40. Recall Interval: 12 Months. Breast Density: Fatty. For any future breast imaging appointments, please call [phone] ([phone]). FINAL REPORT Dictated: 10/22/2018 9:18 am Dakota Dubois MD Signed (Electronic Signature): 10/22/2018 9:18 am Signed by: Dakota Dubois MD Technologist: DEWAYNE Assessment: BI-RADS Category 2-Benign finding Recommendation: Normal interval follow-up Normal [facility] 10-06-2018 [id number] Date of Procedure: 10/06/2018 Pathologist: DEANA HARDIN Date Reported: 10/26/2018 Date Received: 10/08/2018 Submitting Physician: SUMA JACKSON MD FINAL CYTOLOGICAL INTERPRETATION A. THINPREP PAP Cervical / Endocervical Reflex - [facility] only: Specimen adequacy: SATISFACTORY FOR EVALUATION. Quality Indicator: Endocervical/transformation zone component is present. General Categorization: NEGATIVE FOR INTRAEPITHELIAL LESION OR MALIGNANCY. Electronically Signed Out By [facility], Cytology//MXG By the signature on this report, the individual or group listed as making the Final Interpretation/Diagnosis certifies that they have reviewed this case. Educational Note: Cervical cytology is a screening procedure primarily for squamous cancers and precursors and has associated false-negative and false-positive results as evidenced by published data. Your patient?s test should be interpreted in this context, together with patient?s history and clinical findings. Regular sampling and follow-up of unexplained clinical signs and symptoms are recommended to minimize false negative results. Clinical History Date of Last Menstrual Period: {Not Entered} Menstrual History: Post-menopausal Other Clinical Conditions: Reflex HPV Testing Ordered: [facility] and Above Z12.4, Z11.51 Source of Specimen A: THINPREP PAP Cervical / Endocervical Reflex - Asc[facility] only Normal [facility] Vital Signs Date Time Vital Sign Value Performing Clinician Facility 09-30-2024 13:28-0400 Body height 160.[address] Joanie Magallanes DO Work Phone: [facility] 09-30-2024 13:28-0400 Body mass index (BMI) [Ratio] 43 kg/m2 Dr. Joanie Magallanes DO Work Phone: [facility] 09-30-2024 13:28-0400 Body temperature 98.7 [degF] Dr. Joanie Magallanes DO Work Phone: [facility] 09-30-2024 13:28-0400 Body weight 110.[address] Joanie Magallanes DO Work Phone: [facility] 09-30-2024 13:28-0400 Diastolic blood pressure 62 mm[Hg] Dr. Joanie Magallanes DO Work Phone: [facility] 09-30-2024 13:28-0400 Heart rate 82 /min Dr. Joanie Magallanes DO Work Phone: [facility] 09-30-2024 13:28-0400 Respiratory rate 18 /min Dr. Joanie Magallanes DO Work Phone: [facility] 09-30-2024 13:28-0400 SaO2% (BldA) [Mass fraction] 98 % Dr. Joanie Magallanes DO Work Phone: [facility] 09-30-2024 13:28-0400 Systolic blood pressure 132 mm[Hg] Dr. Joanie Magallanes DO Work Phone: [facility] 09-29-2024 10:44-0400 Body height 160 cm Breanna Obrien MD Work Phone: [facility] 09-29-2024 10:44-0400 Body mass index (BMI) [Ratio] 43.05 kg/m2 Breanna Obrien MD Work Phone: 6(953)211-[address]498 [address] 09-29-2024 10:44-0400 Body weight 110.22 kg Breanna Obrien MD Work Phone: 1(928)694-458029 [place] [address] 09-29-2024 10:44-0400 Diastolic blood pressure 76 mm[Hg] Breanna Obrien MD Work Phone: [facility] 09-29-2024 10:44-0400 Heart rate 69 /min Breanna Obrien MD Work Phone: 8(837)869-325029 [place] [address] 09-29-2024 10:44-0400 Systolic blood pressure 127 mm[Hg] Breanna Obrien MD Work Phone: [facility] 09-01-2024 09:19-0400 Body height 160 cm Breanna Obrien MD Work Phone: [facility] 09-01-2024 09:19-0400 Body mass index (BMI) [Ratio] 42.87 kg/m2 Breanna Obrien MD Work Phone: 2(586)635-500229 [place] [address] 09-01-2024 09:19-0400 Body weight 109.77 kg Breanna Obrien MD Work Phone: 9(891)854-079129 [place] [address] 09-01-2024 09:19-0400 Diastolic blood pressure 80 mm[Hg] Breanna Obrien MD Work Phone: [facility] 09-01-2024 09:19-0400 Heart rate 71 /min Breanna Obrien MD Work Phone: [facility] 09-01-2024 09:19-0400 Systolic blood pressure 134 mm[Hg] Breanna Obrien MD Work Phone: [facility] 04-26-2024 09:21-0500 Body height 160 cm [facility] 04-26-2024 09:21-0500 Body mass index (BMI) [Ratio] 40.08 kg/m2 [facility] 04-26-2024 09:21-0500 Body weight 102.6 kg [facility] 04-02-2024 08:39-0500 Body height 160 cm Brady Becker MD Work Phone: [facility] 04-02-2024 08:39-0500 Body mass index (BMI) [Ratio] 40.07 kg/m2 Brady Becker MD Work Phone: [facility] 04-02-2024 08:39-0500 Body weight 102.6 kg Brady Becker MD Work Phone: [facility] 04-02-2024 08:39-0500 Diastolic blood pressure 70 mm[Hg] Brady Becker MD Work Phone: [facility] 04-02-2024 08:39-0500 Systolic blood pressure 118 mm[Hg] Brady Becker MD Work Phone: [facility] 07-23-2023 08:29-0400 Body height 160 cm Breanna Obrien MD Work Phone: [facility] 07-23-2023 08:29-0400 Body mass index (BMI) [Ratio] 40.74 kg/m2 Breanna Obrien MD Work Phone: [facility] 07-23-2023 08:29-0400 Body weight 104.33 kg Breanna Obrien MD Work Phone: [facility] 07-23-2023 08:29-0400 Diastolic blood pressure 72 mm[Hg] Breanna Obrien MD Work Phone: [facility] 07-23-2023 08:29-0400 Heart rate 75 /min Breanna Obrien MD Work Phone: [facility] 07-23-2023 08:29-0400 Systolic blood pressure 124 mm[Hg] Breanna Obrien MD Work Phone: [facility] 07-02-2023 08:38-0400 Body height 160 cm Breanna Obrien MD Work Phone: [facility] 07-02-2023 08:38-0400 Body mass index (BMI) [Ratio] 41.1 kg/m2 Breanna Obrien MD Work Phone: [facility] 07-02-2023 08:38-0400 Body weight 105.23 kg Breanna Obrien MD Work Phone: [facility] 07-02-2023 08:38-0400 Diastolic blood pressure 80 mm[Hg] Breanna Obrien MD Work Phone: [facility] 07-02-2023 08:38-0400 Heart rate 64 /min Breanna Obrien MD Work Phone: [facility] 07-02-2023 08:38-0400 Systolic blood pressure 120 mm[Hg] Breanna Obrien MD Work Phone: [facility] 03-31-2023 08:36-0500 Body height 160 cm Brady Becker MD Work Phone: [facility] 03-31-2023 08:36-0500 Body mass index (BMI) [Ratio] 40.81 kg/m2 Brady Becker MD Work Phone: [facility] 03-31-2023 08:36-0500 Body weight 104.51 kg Brady Becker MD Work Phone: [facility] 03-31-2023 08:36-0500 Diastolic blood pressure 72 mm[Hg] Brady Becker MD Work Phone: [facility] 03-31-2023 08:36-0500 Systolic blood pressure 112 mm[Hg] Brady Becker MD Work Phone: [facility] 05-01-2022 08:08-0500 Body height 160.02 cm Breanna Obrien Work Phone: [facility] Work Phone: 05-01-2022 08:08-0500 Body mass index (BMI) [Ratio] 40.39 kg/m2 Breanna Obrien Work Phone: [facility] Work Phone: 05-01-2022 08:08-0500 Body surface area Derived from formula 2.04 m2 Breanna Obrien Work Phone: [facility] Work Phone: 05-01-2022 08:08-0500 Body weight 103.42 kg Breanna Obrien Work Phone: [facility] Work Phone: 05-01-2022 08:08-0500 Diastolic blood pressure 76 mm[Hg] Breanna Obrien Work Phone: [facility] Work Phone: 05-01-2022 08:08-0500 Heart rate 72 /min Breanna Obrien Work Phone: [facility] Work Phone: 05-01-2022 08:08-0500 SaO2% (BldA) [Mass fraction] 95 % Breanna Obrien Work Phone: [facility] Work Phone: 05-01-2022 08:08-0500 Systolic blood pressure 112 mm[Hg] Breanna Zarrabi Work Phone: [facility] Work Phone: 03-26-2022 09:08-0500 Body height 160.02 cm Breanna Zarrabi Work Phone: [facility] [address] [place] Work Phone: 03-26-2022 09:08-0500 Body mass index (BMI) [Ratio] 40.3 kg/m2 Breanna Zarrabi Work Phone: [facility] [address] [place] Work Phone: 03-26-2022 09:08-0500 Body surface area Derived from formula 2.04 m2 Breanna Zarrabi Work Phone: [facility] [address] [place] Work Phone: 03-26-2022 09:08-0500 Body weight 103.2 kg Breanna Zarrabi Work Phone: [facility] [address] [place] Work Phone: 03-26-2022 09:08-0500 Diastolic blood pressure 80 mm[Hg] Breanna Zarrabi Work Phone: [facility] [address] Work Phone: 03-26-2022 09:08-0500 Systolic blood pressure 126 mm[Hg] Breanna Zarrabi Work Phone: [facility] [address] Work Phone: 03-28-2021 13:29-0500 Body height 160.02 cm Breanna Zarrabi Work Phone: [facility] [address] Work Phone: 03-28-2021 13:29-0500 Body mass index (BMI) [Ratio] 40.21 kg/m2 Breanna Zarrabi Work Phone: [address] Work Phone: 03-28-2021 13:29-0500 Body surface area Derived from formula 2.04 m2 Breanna Obrien Work Phone: [address] Work Phone: 03-28-2021 13:29-0500 Body weight 102.97 kg Breanna Obrien Work Phone: [address] Work Phone: 03-28-2021 13:29-0500 Diastolic blood pressure 80 mm[Hg] Breanna Obrien Work Phone: [address] Work Phone: 03-28-2021 13:29-0500 Heart rate 80 /min Breanna Obrien Work Phone: [address] Work Phone: 03-28-2021 13:29-0500 Systolic blood pressure 122 mm[Hg] Breanna Obrien Work Phone: [address] Work Phone: 03-14-2021 15:46-0500 Body height 160.02 cm Breanna Obrien Work Phone: [facility] Work Phone: 03-14-2021 15:46-0500 Body mass index (BMI) [Ratio] 40.3 kg/m2 Breanna Obrien Work Phone: [facility] Work Phone: 03-14-2021 15:46-0500 Body surface area Derived from formula 2.04 m2 Breanna Obrien Work Phone: [facility] Work Phone: 03-14-2021 15:46-0500 Body temperature 96.8 [degF] Breanna Jacobsenabi Work Phone: [facility] Work Phone: 03-14-2021 15:46-0500 Body weight 103.2 kg Breanna Jacobsenabi Work Phone: [facility] Work Phone: 03-14-2021 15:46-0500 Diastolic blood pressure 78 mm[Hg] Breanna Jacobsenabi Work Phone: [facility] Work Phone: 03-14-2021 15:46-0500 Systolic blood pressure 130 mm[Hg] Breanna Zajahabi Work Phone: [facility] Work Phone: 03-14-2021 13:51-0500 Body height 160.02 cm Breanna Jacobsenabi Work Phone: [facility] Work Phone: 03-14-2021 13:51-0500 Body mass index (BMI) [Ratio] 40.03 kg/m2 Breanna Jacobsenabi Work Phone: [facility] Work Phone: 03-14-2021 13:51-0500 Body surface area Derived from formula 2.04 m2 Breanna Jacobsenabi Work Phone: [facility] Work Phone: 03-14-2021 13:51-0500 Body weight 102.51 kg Breanna Jacobsenabi Work Phone: [facility] Work Phone: 03-14-2021 13:51-0500 Diastolic blood pressure 72 mm[Hg] Breanna Zarrabi Work Phone: [facility] Work Phone: 03-14-2021 13:51-0500 Heart rate 66 /min Breanna Jacobsenabi Work Phone: [facility] Work Phone: 03-14-2021 13:51-0500 Systolic blood pressure 122 mm[Hg] Breanna Obrien Work Phone: [facility] Work Phone: 02-05-2021 08:03-0400 Body height 160.02 cm Breanna Obrien Work Phone: [facility] Work Phone: 02-05-2021 08:03-0400 Body mass index (BMI) [Ratio] 39.86 kg/m2 Breannaedvin Obrien Work Phone: [facility] Work Phone: 02-05-2021 08:03-0400 Body surface area Derived from formula 2.03 m2 Breannaedvin Obrien Work Phone: [facility] Work Phone: 02-05-2021 08:03-0400 Body weight 102.06 kg Breanna Obrien Work Phone: [facility] Work Phone: 02-05-2021 08:03-0400 Diastolic blood pressure 78 mm[Hg] Breanna Obrien Work Phone: [facility] Work Phone: 02-05-2021 08:03-0400 Heart rate 71 /min Breanan Obrien Work Phone: [facility] Work Phone: 02-05-2021 08:03-0400 SaO2% (BldA) [Mass fraction] 97 % Breannaedvin Obrien Work Phone: [facility] Work Phone: 02-05-2021 08:03-0400 Systolic blood pressure 112 mm[Hg] Breanna Jacobsenabi Work Phone: [facility] Work Phone: 01-05-2021 12:43-0400 Body height 160 cm Breanna Obrien Other Phone: [facility] 01-05-2021 12:43-0400 Body temperature 98.24 [degF] Breanna Obrien Other Phone: [facility] 01-05-2021 12:43-0400 Diastolic blood pressure 83 mm[Hg] Breanna Obrien Other Phone: [facility] 01-05-2021 12:43-0400 Heart rate 91 /min Breanna Obrien Other Phone: [facility] 01-05-2021 12:43-0400 SaO2% (BldA) [Mass fraction] 95 % Breanna Obrien Other Phone: [facility] 01-05-2021 12:43-0400 Systolic blood pressure 138 mm[Hg] Breanna Obrien Other Phone: [facility] 2020 16:49-0500 BMI (Body Mass Index) 40.73 kg/m2 Breanna Obrien [facility] [address] Work Phone: 2020 16:49-0500 Body Temperature 96.9 [degF] Breanna Obrien [facility] [address] Work Phone: Comment on above: Method: Temporal 2020 16:49-0500 Body weight 104.3 kg Breanna Obrien [facility] [address] Work Phone: 2020 16:49-0500 BP Diastolic 78 mm[Hg] Breanna Obrien [facility] [address] Work Phone: Comment on above: Location: E; Position: Sitting 2020 16:49-0500 BP Systolic 120 mm[Hg] Breannaedvin [address] [place] Work Phone: Comment on above: Location: E; Position: Sitting 2020 16:49-0500 BSA (Body Surface Area) 2.05 m2 Breanna Huang [place] Work Phone: 2020 16:49-0500 Height 160.02 cm Breanna Huang [place] Work Phone: 2020 14:02-0500 BMI (Body Mass Index) 40.21 kg/m2 Breanna Huang [place] Work Phone: 2020 14:02-0500 Body weight 102.96 kg Breanna Huang [place] Work Phone: 2020 14:02-0500 BP Diastolic 80 mm[Hg] Breanna [address] [place] Work Phone: 2020 14:02-0500 BP Systolic 122 mm[Hg] Breanna [address]man [address] [place] Work Phone: 2020 14:02-0500 BSA (Body Surface Area) 2.04 m2 Breanna Huang [place] Work Phone: 2020 14:02-0500 Height 160.02 cm Breanna Huang [place] Work Phone: 2020 14:02-0500 Pulse (Heart Rate) 72 /min Breanna Huang [place] Work Phone: 01-18-2019 18:40-0400 BMI (Body Mass Index) 37.98 kg/m2 [facility] 01-18-2019 18:40-0400 Body Temperature 98.29 [degF] [facility] 01-18-2019 18:40-0400 Body weight 97.25 kg [facility] 01-18-2019 18:40-0400 BP Diastolic 70 mm[Hg] [facility] 01-18-2019 18:40-0400 BP Systolic 124 mm[Hg] [facility] 01-18-2019 18:40-0400 Height 160 cm [facility] 01-18-2019 18:40-0400 Pulse (Heart Rate) 72 /min [facility] 01-18-2019 18:40-0400 Pulse Oximetry 96 % [facility] 01-18-2019 18:40-0400 Respiratory Rate 16 /min [facility] Encounters Encounter Date Encounter Type Care Provider Facility Start: 09-30-2024 End: 09-30-[address] Joanie Magallanes DO Work Phone: [facility] Work Phone: Start: 09-30-2024 End: 09-30-[address] Sanjiv Cancino MD [facility] Work Phone: Start: 09-29-2024 End: 09-29-2024 Assay of hemosiderin, quant Breanna Obrien MD Work Phone: [facility] Work Phone: Start: 09-29-2024 End: 09-29-2024 Patient encounter procedure Breanna Obrien MD Work Phone: [facility] Comment on above: Routine general medi marilu examination at health care facility (Primary Dx); Impaired fasting glucose; Adult hypothyroidism; Hypercholesteremia; Hypertriglyceridemia; Benign essential HTN; Fatigue, unspecified type Start: 09-01-2024 End: 09-01-2024 Office outpatient visit 25 minutes Breanna Obrien MD Work Phone: [facility] Comment on above: Chronic fatigue ([facility] cesilia Dx); Vitamin D deficiency; Adult hypothyroidism; Benign essential HTN; Impaired fasting glucose; Anxiety; Morbid obesity with BMI of 40.0-44.9, adult (Multi) Start: 09-01-2024 End: 09-01-2024 ambulatory [facility] Start: 04-26-2024 End: 04-26-2024 ambulatory [facility] Start: 04-26-2024 End: 04-26-2024 Subsequent hospital visit by physician Christian Kim Mammo [facility] Comment on above: Encounter for screen ing mammogram for malignant neoplasm of breast Start: 04-02-2024 End: 04-02-2024 Patient encounter status Brady Becker MD Work Phone: [facility] Work Phone: Start: 04-02-2024 End: 04-02-2024 Periodic preventive med est patient 65yrs& older Brady Becker MD Work Phone: [facility] Building Comment on above: Encounter for screen ing mammogram for malignant neoplasm of breast; Encounter for gynecological examination without abnormal finding; Encounter for screening for cervical cancer Start: 04-02-2024 End: 04-02-2024 ambulatory [facility] Start: 04-02-2024 End: 04-02-2024 Encounter for gynecological examination (general) (routine) without abnormal findings [facility] Start: 07-23-2023 End: 07-23-2023 Office outpatient visit 15 minutes Breanna Obrien MD Work Phone: [facility] Comment on above: Vitamin D deficiency (Primary Dx); Benign essential HTN; Adult hypothyroidism; Osteopenia, unspecified location; Total bilirubin, elevated; Glucose intolerance (impaired glucose tolerance) Start: 07-09-2023 End: 07-09-2023 Subsequent hospital visit by physician Christian Kim D[facility] Comment on above: Post-menopausal Start: 07-09-2023 End: 07-09-2023 ambulatory [facility] Start: 07-02-2023 End: 07-02-2023 Office outpatient visit 25 minutes Breanna Obrien MD Work Phone: [facility] Comment on above: Vitamin D deficiency (Primary Dx); Lipid screening; Secondary hypertension; Adult hypothyroidism; Glucose intolerance (impaired glucose tolerance); Benign essential hypertension; Borderline hyperlipidemia; Hypocalcemia; Fatigue, unspecified type; Post-menopausal Start: 03-31-2023 End: 03-31-2023 Patient encounter status Brady Becker MD Work Phone: [facility] Start: 03-31-2023 End: 03-31-2023 Periodic preventive med est patient 40-64yrs Brady Becker MD Work Phone: [facility] Comment on above: Encounter for gyneco logical examination without abnormal finding; Encounter for screening for cervical cancer; Encounter for screening mammogram for breast cancer Start: 06-06-2022 End: 06-06-2022 ambulatory MD NADIR NEGRON Facility:[id number] Start: 05-15-[address] Breanna Obrien Fac ility:[id number] Start: 05-01-2022 Office outpatient vi sit 25 minutes Breanna Obrien Work Phone: [facility] Work Phone: Start: 05-01-[address] Breanna Obrien Fac ility:[id number] Start: 04-24-2022 AUDIT Breanna Linn i Work Phone: [facility] Work Phone: Start: 04-17-2022 FUV, Provider: Breanna Obrien, Status: Pen, Time: 1:45 PM Breanna Obrien Work Phone: [address] Work Phone: Start: 04-16-2022 Chart Update Breanna Linn i Work Phone: [address] Work Phone: Start: 04-12-2022 ambulatory Brady Becker Facility :[id number] Start: 04-09-2022 AUDIT Breanna Linn i Work Phone: [facility] Work Phone: Start: 04-06-2022 Chart Update Breanna Kraftrrab i Work Phone: [facility] [address] Work Phone: Start: 03-26-2022 Encounter for gynecological examination (general) (routine) without abnormal findings Brady Becker [facility] Start: 03-26-2022 Encounter for gynecological examination (general) (routine) without abnormal findings Brady Becker Facility:[facility] Start: 03-26-2022 Periodic preventive med est patient 40-64yrs Breanna Abenarrabi Work Phone: [facility] [address] Work Phone: Start: 03-26-2022 ambulatory Brady Becker Facility:[facility] Start: 04-02-2021 Chart Update Breanna Jacobsenab i Work Phone: [facility] [address] Work Phone: Start: 03-22-2021 Chart Update Breanna Jacobsenab i Work Phone: [facility] Work Phone: Start: 03-14-2021 Office outpatient vi sit 25 minutes Breanna Zarrabi Work Phone: [facility] Work Phone: Start: 02-05-2021 Office outpatient vi sit 25 minutes Breanna Zarrabi Work Phone: [facility] Work Phone: Start: 01-15-2021 Office outpatient vi sit 25 minutes Breanna Zarrabi Work Phone: [facility] Work Phone: Start: 01-05-2021 End: 01-05-2021 Emergency department patient visit [facility] Start: 2020 Patient encounter procedure Breanna Jacobsenabi [facility] [address] Work Phone: Start: 2020 Patient encounter procedure Breanna Jacobsenabi [facility] [address] Work Phone: Start: 04-20-2019 Patient encounter procedure Breanna Camille [address] Work Phone: Start: 01-18-2019 End: 01-18-2019 Office outpatient new 30 minutes Isha Curtis Work Phone: [facility] Comment on above: Herpes zoster withou t complication (Primary Dx) Start: 10-06-2018 Manual pelvic examination Yun Jacobsenstephanie Work Phone: [facility] Work Phone: Comment on above: WNL; 10/06/2018; NIL; 04/09/2022 NIL 019; NIL; Patient encounter procedure Breanna Camille Work Phone: [facility] Work Phone: Procedures Date Procedure Procedure Detail Performing Clinician Start: 08-26-2024 Lipid 1996 panel - S landon or Plasma Breanna Obrien MD Work Phone: Start: 04-26-2024 End: 04-26-2024 Screening digital breast tomosynthesis bi Brady Becker MD Work Phone: Start: 04-02-2024 Microscopic observat ion [Identifier] in Cervix by Cyto stain [facility] Start: 07-09-2023 DEXA BONE DENSITY JANNET OBRIEN Start: 07-09-2023 Dxa bone density milind dy 1/> sites axial skel Breanna Obrien MD Work Phone: Start: 04-24-2023 Mammography Breanna robertson MD Work Phone: Start: 03-31-2023 Microscopic observat ion [Identifier] in Cervix by Cyto stain Breanna Obrien MD Work Phone: Start: 06-06-2022 Colonoscopy Brady sanchez MD Work Phone: Start: 04-12-2022 Mammography Brady sanchez MD Work Phone: Start: 03-26-2022 Microscopic observat ion [Identifier] in Cervix by Cyto stain Brady Becker MD Work Phone: Start: 08-12-2009 Thyroidectomy Breanna louise Work Phone: Start: 04-14-2007 Endometrial ablation Lopez Obrien Work Phone: Start: 01-12-1983 Ligation of fallopian tube Breanna Obrien Work Phone: Colonoscopy Breanna Obrien Endometrial ablation Breanna Obrien Comment on above: Completed: 2007 End: 01-12-1983 Ligation of fallopian tube Breanna Moser bi End: 08-12-2009 Thyroidectomy Breanna Obrien Plan of Treatment Date Care Activity Detail Author Start: 06-06-2032 Screening for malignant neoplasm of colon [facility] Start: 08-26-2029 Lipid panel Lipid Panel [facility] Start: 04-02-2027 Screening for malignant neoplasm of cervix [facility] Start: 03-31-2026 Screening for malignant neoplasm of cervix [facility] Start: 10-03-2025 End: 10-03-2025 Patient encounter procedure 10/03/2025 10:30 AM EDT Office Visit [facility] [address] [place] [phone] Breanna Obrien MD [address] [place] [address] [facility] Start: 09-30-2025 Medicare Annual Wellness Visit Medicare Annual Wellness Visit (AWV) [facility] Start: 08-26-2025 Diabetes mellitus screening Diabetes Screening [facility] Start: 04-26-2025 Screening for malignant neoplasm of breast Mammogram [facility] Start: 04-05-2025 End: 04-05-2025 Patient encounter procedure [facility] Start: 03-26-2025 Screening for malignant neoplasm of cervix [facility] Start: 12-30-2024 End: 12-30-2024 Patient encounter procedure 12/30/2024 10:30 AM EDT Office Visit [facility] [address] [place] [phone] Breanna Obrien MD [address] [place] [address] [facility] Start: 12-13-2024 Influenza vaccination Influenz a Vaccine (Season Ended) [facility] Start: 09-29-2024 End: 09-29-2025 Lipid 1996 panel - Serum or Plasma Lipid Panel Lab Routine Hypercholesteremia Hypertriglyceridemia Expected: 09/29/2024 (Approximate), Expires: 09/29/2025 [facility] Service Area Work Phone: Comment on above: Expected: 09/29/2024 (Approximate), Expires: 09/29/2025 Start: 09-22-2024 End: 09-22-2024 Patient encounter procedure 09/22/2024 8:45 AM EDT Office Visit [facility] [address] [place] [phone] Breanna Obrien MD [address] [place] [address] [facility] Start: 09-01-2024 End: 09-01-2025 CBC W Auto Differential panel - Blood CBC and Auto Differential Lab Routine Chronic fatigue Expected: 09/01/2024 (Approximate), Expires: 09/01/2025 [facility] Service Area Work Phone: Comment on above: Expected: 09/01/2024 (Approximate), Expires: 09/01/2025 Start: 09-01-2024 End: 09-01-2025 Magnesium [Mass/volume] in Serum or Plasma Magnesium Lab Routine Chronic fatigue Expected: 09/01/2024 (Approximate), Expires: 09/01/2025 [facility] Work Phone: Comment on above: Expected: 09/01/2024 (Approximate), Expires: 09/01/2025 Start: 09-01-2024 End: 09-01-2025 Zinc [Mass/volume] in Serum or Plasma Zinc Lab Routine Chronic fatigue Expected: 09/01/2024 (Approximate), Expires: 09/01/2025 [facility] Work Phone: Comment on above: Expected: 09/01/2024 (Approximate), Expires: 09/01/2025 Start: 04-24-2024 Screening for malignant neoplasm of breast Mammogram [facility] Start: 04-02-2024 End: 04-02-2025 Cytology Cervical or vaginal smear or scraping study [facility] Work Phone: Comment on above: Expected: 04/02/2024 (Approximate), Expires: 04/02/2025 Start: 04-02-2024 End: 05-03-2025 DBT Breast - bilateral BI mammo bilateral screening tomosynthesis Imaging Routine Encounter for screening mammogram for malignant neoplasm of breast Expected: 04/02/2024, Expires: 05/03/2025 [facility] Service Area Work Phone: Comment on above: Expected: 04/02/2024 , Expires: 05/03/2025 Start: 04-02-2024 End: 04-02-2024 Patient encounter procedure 04/02/2024 8:30 AM EST Office Visit [facility] [address] [place] [phone] Brady Becker MD [address] [facility], [facility] [address] [place] [address] [facility] Start: 04-01-2024 Yearly Adult Physical Yearly Adult P hysical [facility] Start: 2024 Pneumococcal Vaccine : 65+ Years (1 - PCV) Pneumococcal Vaccine: 65+ Years (1 - PCV) [facility] Start: 2024 Pneumococcal Vaccine : 65+ Years (1 of 1 - PCV) Pneumococcal Vaccine: 65+ Years (1 of 1 - PCV) [facility] Start: 12-14-2023 COVID-19 Vaccine ( season) COVID-19 Vaccine ( season) [facility] Start: 12-14-2023 Influenza vaccination [facility] Start: 11-20-2023 End: 11-20-2023 Patient encounter procedure 11/20/2023 8:00 AM EDT Office Visit [facility] [address] [place] [phone] Breanna Obrien MD [address] [place] [id number] [facility] Start: 07-23-2023 End: 07-22-2024 25-hydroxyvitamin D3 [Mass/volume] in Serum or Plasma Vitamin D 25-Hydroxy,Total (for eval of Vitamin D levels) Lab Routine Vitamin D deficiency Expected: 07/23/2023 (Approximate), Expires: 07/22/2024 [facility] Work Phone: Comment on above: Expected: 07/23/2023 (Approximate), Expires: 07/22/2024 Start: 07-23-2023 End: 07-22-2024 Comprehensive metabolic 2000 panel - Serum or Plasma Comprehensive Metabolic Panel Lab Routine Benign essential HTN Expected: 07/23/2023 (Approximate), Expires: 07/22/2024 [facility] Service Area Work Phone: Comment on above: Expected: 07/23/2023 (Approximate), Expires: 07/22/2024 Start: 07-23-2023 End: 07-23-2023 Patient encounter procedure 07/23/2023 8:15 AM EDT Office Visit [facility] [address] [place] [phone] Breanna Obrien MD [address] [place] [address] [facility] Start: 07-09-2023 End: 07-09-2023 Patient encounter procedure 07/09/2023 8:00 AM EDT Appointment [address] [place] [phone] [facility] Start: 07-02-2023 End: 07-01-2024 25-hydroxyvitamin D3 [Mass/volume] in Serum or Plasma Vitamin D 25-Hydroxy,Total (for eval of Vitamin D levels) Lab Routine Vitamin D deficiency Expected: 07/02/2023 (Approximate), Expires: 07/01/2024 [facility] Work Phone: Comment on above: Expected: 07/02/2023 (Approximate), Expires: 07/01/2024 Start: 07-02-2023 End: 07-01-2024 CBC W Auto Differential panel - Blood CBC and Auto Differential Lab Routine Fatigue, unspecified type Expected: 07/02/2023 (Approximate), Expires: 07/01/2024 [facility] Work Phone: Comment on above: Expected: 07/02/2023 (Approximate), Expires: 07/01/2024 Start: 07-02-2023 End: 07-01-2024 Comprehensive metabolic 2000 panel - Serum or Plasma Comprehensive Metabolic Panel Lab Routine Glucose intolerance (impaired glucose tolerance) Benign essential hypertension Hypocalcemia Expected: 07/02/2023 (Approximate), Expires: 07/01/2024 [facility] Service Area Work Phone: Comment on above: Expected: 07/02/2023 (Approximate), Expires: 07/01/2024 Start: 07-02-2023 End: 07-01-2024 DXA Skeletal system Views for bone density XR DEXA bone density Imaging Routine Post-menopausal Expected: 07/02/2023, Expires: 07/01/2024 [facility] Work Phone: Comment on above: Expected: 07/02/2023 , Expires: 07/01/2024 Start: 07-02-2023 End: 07-01-2024 Hemoglobin A1c/Hemoglobin.total in Blood Hemoglobin A1C Lab Routine Glucose intolerance (impaired glucose tolerance) Expected: 07/02/2023 (Approximate), Expires: 07/01/2024 [facility] Work Phone: Comment on above: Expected: 07/02/2023 (Approximate), Expires: 07/01/2024 Start: 07-02-2023 End: 07-01-2024 Lipid 1996 panel - Serum or Plasma Lipid Panel Lab Routine Borderline hyperlipidemia Expected: 07/02/2023 (Approximate), Expires: 07/01/2024 [facility] Work Phone: Comment on above: Expected: 07/02/2023 (Approximate), Expires: 07/01/2024 Start: 07-02-2023 End: 07-01-2024 Magnesium [Mass/volume] in Serum or Plasma Magnesium Lab Routine Fatigue, unspecified type Expected: 07/02/2023 (Approximate), Expires: 07/01/2024 [facility] Work Phone: Comment on above: Expected: 07/02/2023 (Approximate), Expires: 07/01/2024 Start: 07-02-2023 End: 07-01-2024 TSH with reflex to Free T4 if abnormal TSH with reflex to Free T4 if abnormal Lab Routine Adult hypothyroidism Fatigue, unspecified type Expected: 07/02/2023 (Approximate), Expires: 07/01/2024 [facility] Work Phone: Comment on above: Expected: 07/02/2023 (Approximate), Expires: 07/01/2024 Start: 07-02-2023 End: 07-01-2024 Zinc [Mass/volume] in Serum or Plasma Zinc Lab Routine Fatigue, unspecified type Expected: 07/02/2023 (Approximate), Expires: 07/01/2024 [facility] Work Phone: Comment on above: Expected: 07/02/2023 (Approximate), Expires: 07/01/2024 Start: 04-12-2023 Screening for malignant neoplasm of breast Mammogram [facility] Start: 03-31-2023 End: 03-31-2024 Cytology Cervical or vaginal smear or scraping study THINPREP PAP TEST Pathology and Cytology Routine Encounter for gynecological examination without abnormal finding Encounter for screening for cervical cancer Expected: 03/31/2023 (Approximate), Expires: 03/31/2024 [facility] Work Phone: Comment on above: Expected: 03/31/2023 (Approximate), Expires: 03/31/2024 Start: 03-31-2023 End: 06-01-2024 DBT Breast - bilateral BI mammo bilateral screening tomosynthesis Imaging Routine Encounter for screening mammogram for breast cancer Expected: 03/31/2023, Expires: 06/01/2024 [facility] Service Area Work Phone: Comment on above: Expected: 03/31/2023 , Expires: 06/01/2024 Start: 03-31-2023 Patient encounter procedure ANNUAL, Provider: Brady Becker, Status: Pen, Time: 8:[address] Work Phone: Start: 12-13-2022 COVID-19 Vaccine ( season) COVID-19 Vaccine ( season) [facility] Start: 12-13-2022 Influenza vaccination Influenza Vacc ine (#1) [facility] Start: 06-06-2022 COLON, Provider: Nadir Negron, Status: Pen, Time: 9:00 AM COLON, Provider: Nadir Negron, Status: Pen, Time: 9:00 AM [facility] Work Phone: Start: 05-15-2022 FUV, Provider: Breanna Obrien, Status: Pen, Time: 8:00 AM FUV, Provider: Breanna Obrien, Status: Pen, Time: 8:00 AM [facility] Work Phone: Start: 05-01-2022 FUV, Provider: Breanna Obrien, Status: Pen, Time: 8:00 AM FUV, Provider: Breanna Obrien, Status: Pen, Time: 8:00 AM [facility] Work Phone: Start: 04-17-2022 FUV, Provider: Breanna Obrien, Status: Pen, Time: 1:45 PM FUV, Provider: Breanna Obrien, Status: Pen, Time: 1:[address] Work Phone: Start: 03-15-2022 Patient encounter procedure ANNUAL, Provider: Choco Estrada, Status: Pen, Time: 1:45 PM [facility] Work Phone: Start: 05-16-2021 FUV, Provider: Breanna Obrien, Status: Pen, Time: 1:45 PM FUV, Provider: Breanna Obrien, Status: Pen, Time: 1:45 PM [facility] Work Phone: Start: 03-28-2021 FUV, Provider: Breanna Obrien, Status: Pen, Time: 1:30 PM FUV, Provider: Breanna Obrien, Status: Pen, Time: 1:30 PM [facility] Work Phone: Start: 03-14-2021 Patient encounter procedure [facility] Start: 02-27-2021 FUV, Provider: Breanna Obrien, Status: Pen, Time: 1:45 PM FUV, Provider: Breanna Obrien, Status: Pen, Time: 1:45 PM [facility] Work Phone: Start: 2019 RSV High Risk: (Elderly (60+) or Population) (1 - Risk 60-74 years 1-dose series) RSV High Risk: (Elderly (60+) or Population) (1 - Risk 60-74 years 1-dose series) [facility] Start: 12-13-2018 Influenza vaccination INFLUENZA VACC INE (#1) [facility] Start: 2009 Colonoscopy COLON CANCER S CREENING DISCUSSION [facility] Start: 2009 Pneumococcal vaccination Pneumococcal Vaccine (1 of 1 - PCV) [facility] Start: 2009 Zoster vaccine hzv live for subcutaneous use ZOSTER (SHINGLES) VACCINE (1 of 2) [facility] Start: 2009 Zoster Vaccines (1 o f 2) Zoster Vaccines (1 of 2) [facility] Start: 1999 Fasting lipid profile LIPID SCREENIN G [facility] Start: 1999 Screening mammography MAMMOGRA M SCREENING DISCUSSION [facility] Start: 1981 DTaP/Tdap/Td Vaccine s (1 - Tdap) DTaP/Tdap/Td Vaccines (1 - Tdap) [facility] Start: 1980 Screening for malignant neoplasm of cervix [facility] Start: 1978 Third diphtheria, tetanus and acellular pertussis (DTaP) vaccination TDAP (ADULT) [facility] Start: 1977 Diabetes mellitus screening Diabetes Screening [facility] Start: 1977 Hepatitis C screening Hepatitis C Sc reening [facility] Start: 1977 Tetanus vaccination [facility] Start: 1972 HIV screening HIV SCREENING DISCUSSI ON [facility] Start: 1960 MMR Vaccines (1 of 1 - Standard series) MMR Vaccines (1 of 1 - Standard series) [facility] Start: 1959 COVID-19 Vaccine (#1) COVID-19 Vacci ne (#1) [facility] Start: 1959 Annual wellness visit [facility] Visit [facility] Start: 1959 Hepatitis C antibody , confirmatory test [facility] Start: 1959 HIV screening HIV Screening [facility] Start: 1959 Lipid panel Lipid Panel [facility] Start: 1959 Screening for malignant neoplasm of colon [facility] Start: 1959 Thyroid stimulating hormone measurement TSH Level [facility] Start: 1959 Yearly Adult Physical Yearly Adult P hysical [facility] H/O: tubal ligation History of tubal liga tion [facility] History of colonoscopy History of colonoscopy [facility] History of colonoscopy S/P colonoscopy [facility] History of endometrial ablation History of endometrial ablation [facility] History of thyroidectomy H/O thyroidectomy [facility] XR Finger GE 2 Views [facility] NEGATED: Highlighted row has been ruled out! Planned Goals not documented [facility] Work Phone: Payers Date Payer Category Payer Medicare (Managed Care) [employer]AN [id number] 2024 Medicare [id number] 2022 Blue Cross [facility] ANTHEM HMP [id number] 2022 Unknown 2021 Unknown [id number] 2019 Unknown ANTHEM ANTHEM O PPO POS xxxxxxxxxxxx 2019-Present xxxxxxxxxxxx [id number] 2005 Unknown ANTHEM [id number] 1959 Unknown [id number] 356 1959 Unknown [id number] 356 1959 Unknown [id number] 356 1959 Unknown [id number] 356 1959 Unknown [id number] 9 1959 Unknown [id number] 1959 Unknown [id number] 9 1959 Unknown [id number] 1959 Unknown [id number] 1243 1959 Unknown [id number] 1244 1959 Unknown [id number] Social History Date Type Detail Facility Start: 01-18-2019 End: 09-30-2024 Tobacco smoking status [facility] Never smoker [employer] Start: 01-18-2019 End: 09-29-2024 Alcohol intake Not Currently [employer] [place] Start: 1960 Sex Assigned At Not on file [facility] Tobacco smoking consumption unknown [facility] Start: 03-31-2023 End: 09-29-2024 Never smoked tobacco Never smoked tobacco [facility] Work Phone: Start: 03-31-2023 Tobacco use and exposure Smokeless tobacco non-user [facility] Work Phone: Start: 03-31-2023 End: 09-29-2024 Alcohol intake Current drinker of alcohol (finding) [facility] Work Phone: Start: 03-31-2023 Alcohol Comment Occasionally [facility] Work Phone: Start: 03-21-2023 End: 09-01-2024 Exposure to SARS-CoV-2 (event) Not sure [facility] Start: 1960 Sex Assigned At Female [facility] NEGATED: Highlighted row - - [facility] [address] Work Phone: Functional Status Date Assessment Result Facility 09-29-2024 Patient Health Questionnaire 2 item (PHQ-2) [Reported] [facility] Work Phone: 09-01-2024 Patient Health Questionnaire 2 item (PHQ-2) [Reported] [facility] Work Phone: NEGATED: Highlighted row Functional performance Functional status health issues are not documented Disease [employer] [address] Work Phone: Mental Status Date Assessment Result Facility NEGATED: Highlighted row Cognitive function [Interpretation] Cognitive status health issues are not documented Disease [facility] [address] Work Phone: Clinical Notes 12-13-2020 to 09-29-2024 Assessment & Plan Note - Breanna Obrien MD - 09/29/2024 10:45 AM EDTAssessment & Plan Note - Breanna Obrien MD - 09/29/2024 10:45 AM EDTFhuy Obrien MD - 09/29/2024 10:45 AM EDT Note Date & Type Note Facility 09-29-2024 Evaluation + Plan note Associated Problem(s): Impaired fasting glucose Orders: metFORMIN (Glucophage) 500 mg tablet; Take 1 tablet (500 mg) by mouth once daily with breakfast. [facility] Work Phone: 09-29-2024 Evaluation + Plan note Associated Problem(s): Adult hypothyroidism Orders: levothyroxine (Synthroid, Levoxyl) 125 mcg tablet; Take 1 tablet (125 mcg) by mouth once daily. [facility] Work Phone: 09-29-2024 Evaluation + Plan note Associated Problem(s): Benign essential HTN [facility] Work Phone: 09-29-2024 History of Present illness Narrative Subjective Reason for Visit: Yayo Chen is an 64 y.o. female here for a Medicare Wellness visit. Past Medical, Surgical, and Family History reviewed and updated in chart. Reviewed all medications by prescribing practitioner or clinical pharmacist (such as prescriptions, OTCs, herbal therapies and supplements) and documented in the medical record. HPI LAB F/U. HAS CHRONIC FATIGUE. METFORMIN 250 MG DAILY DIDN'T HELP WITH WEIGHT LOSS. WELCOME TO MEDICARE VISIT. Patient Care Team: Breanna Obrien MD as PCP - General Breanna Obrien MD as PCP - [employer] PCP Review of Systems Constitutional: Positive for fatigue. Negative for chills and fever. HENT: Negative. Negative for congestion, postnasal drip and rhinorrhea. Eyes: Negative. Negative for visual disturbance. Respiratory: Negative for cough, shortness of breath and wheezing. Cardiovascular: Negative. Negative for chest pain, palpitations and leg swelling. Gastrointestinal: Negative. Negative for abdominal distention, abdominal pain, constipation, diarrhea, nausea and vomiting. Endocrine: Negative. Genitourinary: Negative for dysuria and urgency. Musculoskeletal: Negative. Negative for back pain. Skin: Negative. Negative for rash. Allergic/Immunologic: Negative for immunocompromised state. Neurological: Negative. Negative for dizziness, weakness, light-headedness and headaches. Psychiatric/Behavioral: Negative. Negative for agitation. Objective Vitals: BP 127/76 Pulse 69 Ht 1.6 m (5' 3) Wt 110 kg (243 lb) BMI 43.05 kg/m Physical Exam Constitutional: General: She is not in acute distress. HENT: Head: Normocephalic. Nose: Nose normal. Mouth/Throat: Mouth: Mucous membranes are moist. Eyes: Conjunctiva/sclera: Conjunctivae normal. Pupils: Pupils are equal, round, and reactive to light. Cardiovascular: Rate and Rhythm: Normal rate and regular rhythm. Pulses: Normal pulses. Heart sounds: Normal heart sounds. Pulmonary: Effort: No respiratory distress. Breath sounds: No wheezing. Chest: Chest wall: No tenderness. Abdominal: General: Abdomen is flat. Bowel sounds are normal. Palpations: Abdomen is soft. Tenderness: There is no abdominal tenderness. Musculoskeletal: General: No tenderness. Normal range of motion. Cervical back: Normal range of motion. Lymphadenopathy: Cervical: No cervical adenopathy. Skin: General: Skin is warm and dry. Findings: No rash. Neurological: General: No focal deficit present. Mental Status: She is alert. Mental status is at baseline. Psychiatric: Mood and Affect: Mood normal. Behavior: Behavior normal. Assessment & Plan Routine general medical examination at health care facility Orders: 1 Year Follow Up In Primary Care - Wellness Exam; Future Impaired fasting glucose Orders: metFORMIN (Glucophage) 500 mg tablet; Take 1 tablet (500 mg) by mouth once daily with breakfast. Adult hypothyroidism Orders: levothyroxine (Synthroid, Levoxyl) 125 mcg tablet; Take 1 tablet (125 mcg) by mouth once daily. Hypercholesteremia Orders: Lipid Panel; Future Hypertriglyceridemia Orders: Lipid Panel; Future Benign essential HTN Fatigue, unspecified type TEST RESULTS WERE DISCUSSED. ADVISED TO HAVE LOW FAT AND LOW CALORIE DIET AND TO LOOSE WEIGHT, DAILY EXERCISE.WILL INCREASE THE METFORMIN TO 500 MG DAILY .WILL REDUCE THE LEVOTHYROXINE TO 125 MCG DAILY. ADVISED FOR RELAXATION TECHNIQUES AND TO CUT DOWN ON CAFFEINE. HTN addressed as follow: MONITOR BP GOAL BP LOWER THAN 130/80 LOW SALT EXERCISE DAILY Advanced Care planning discussed with patient,diagnosis , treatment and prognosis discussed with pt for 16 minutes,pt has capacity to make own decision, pt does not have an AD, advised to set one up and bring a copy for the chart. MDM 1) COMPLEXITY: MORE THAN 1 STABLE CHRONIC CONDITION ADDRESSED 2)DATA: TESTS INTERPRETED AND OR ORDERED, TOOK INDEPENDENT HISTORY OR RECORDS REVIEWED 3)RISK: MODERATE RISK DUE TO NATURE OF MEDICAL CONDITIONS/COMORBIDITY OR MEDICATIONS ORDERED OR SURGICAL OR PROCEDURE REFERRAL, . 3 mon documented in this encounter [facility] Work Phone: 09-29-2024 Miscellaneous Notes Associated Problem(s): Impaired fasting glucose Orders: metFORMIN (Glucophage) 500 mg tablet; Take 1 tablet (500 mg) by mouth once daily with breakfast. Associated Problem(s): Adult hypothyroidism Orders: levothyroxine (Synthroid, Levoxyl) 125 mcg tablet; Take 1 tablet (125 mcg) by mouth once daily. Associated Problem(s): Benign essential HTN documented in this encounter [facility] Work Phone: 09-01-2024 History of Present illness Narrative Subjective Patient ID: Yayo Chen is a 64 y.o. female who presents for Follow-up (GENERAL CHECK UP WITH LABS - LAB [facility]). HPI Lab F/U,MED REFILL . LAST VISIT WAS ONE YEAR AGO , WEIGHT GAIN, CHRONIC FATIGUE . ANXIETY ,HAD BEEN UNDER MORE STRESS ,DIDN'T TAKE THE VIT D ROUTINELY. Review of Systems Constitutional: Positive for fatigue. Negative for chills and fever. WEIGHT GAIN HENT: Negative. Negative for congestion, postnasal drip and rhinorrhea. Eyes: Negative. Negative for visual disturbance. Respiratory: Negative for cough, shortness of breath and wheezing. Cardiovascular: Negative. Negative for chest pain, palpitations and leg swelling. Gastrointestinal: Negative. Negative for abdominal distention, abdominal pain, constipation, diarrhea, nausea and vomiting. Endocrine: Negative. Genitourinary: Negative for dysuria and urgency. Musculoskeletal: Negative. Negative for back pain. Skin: Negative. Negative for rash. Allergic/Immunologic: Negative for immunocompromised state. Neurological: Negative. Negative for dizziness, weakness, light-headedness and headaches. Psychiatric/Behavioral: Negative. Negative for agitation. Objective Physical Exam Constitutional: General: She is not in acute distress. HENT: Head: Normocephalic. Nose: Nose normal. Mouth/Throat: Mouth: Mucous membranes are moist. Eyes: Conjunctiva/sclera: Conjunctivae normal. Pupils: Pupils are equal, round, and reactive to light. Cardiovascular: Rate and Rhythm: Normal rate and regular rhythm. Pulses: Normal pulses. Heart sounds: Normal heart sounds. Pulmonary: Effort: No respiratory distress. Breath sounds: No wheezing. Chest: Chest wall: No tenderness. Abdominal: General: Abdomen is flat. Bowel sounds are normal. Palpations: Abdomen is soft. Tenderness: There is no abdominal tenderness. Musculoskeletal: General: No tenderness. Normal range of motion. Cervical back: Normal range of motion. Lymphadenopathy: Cervical: No cervical adenopathy. Skin: General: Skin is warm and dry. Findings: No rash. Neurological: General: No focal deficit present. Mental Status: She is alert. Mental status is at baseline. Psychiatric: Mood and Affect: Mood normal. Behavior: Behavior normal. Assessment/Plan 1. Chronic fatigue CBC and Auto Differential Magnesium Zinc CBC and Auto Differential Magnesium Zinc CANCELED: TSH with reflex to Free T4 if abnormal CANCELED: TSH with reflex to Free T4 if abnormal 2. Vitamin D deficiency ergocalciferol (Vitamin D-2) 1250 mcg (50,000 units) capsule 3. Adult hypothyroidism levothyroxine (Synthroid, Levoxyl) 150 mcg tablet CANCELED: TSH with reflex to Free T4 if abnormal CANCELED: TSH with reflex to Free T4 if abnormal 4. Benign essential HTN lisinopril 10 mg tablet 5. Impaired fasting glucose metFORMIN (Glucophage) 500 mg tablet 6. Anxiety TEST RESULTS WERE DISCUSSED. ADVISED TO HAVE LOW FAT AND LOW CALORIE DIET AND TO LOOSE WEIGHT, DAILY EXERCISE. HTN addressed as follow: MONITOR BP GOAL BP LOWER THAN 130/80 LOW SALT EXERCISE DAILY ADVISED FOR RELAXATION TECHNIQUES AND TO CUT DOWN ON CAFFEINE. OFFERED TO START PRN BUSSHAVONNE, PT REFUSED AND WANTS TO WAIT. IMPAIRED FASTING GLUCOSE addressed as follow: 1800 MARILU ADA LOSE WT. WILL START METFORMIN 250 MG DAILY. ADVISED TO ADD OTC VIT D 1000 UNIT BID ,IN ADDITION TO VIT D PRESCRIPTION. ALL ASSESSED CHRONIC CONDITIONS ARE STABLE OR ADDRESSED. MDM 1) COMPLEXITY: 1 UNDIAGNOSED NEW PROBLEM WITH UNCERTAIN PROGNOSIS 2)DATA: TESTS INTERPRETED AND OR ORDERED, TOOK INDEPENDENT HISTORY OR RECORDS REVIEWED 3)RISK: MODERATE RISK DUE TO NATURE OF MEDICAL CONDITIONS/COMORBIDITY OR MEDICATIONS ORDERED OR SURGICAL OR PROCEDURE REFERRAL, . 3 weeks. Labs to [facility] documented in this encounter [facility] Work Phone: 04-02-2024 History of Present illness Narrative Yayo Chen is a 64 y.o. female who is here for a routine exam. PCP = Breanna Obrien MD Chief Complaint Patient presents with Gynecologic Exam Patient is here for yearly exam and pap test. Patient does not do regular self breast exams and has no concerns at this time. LMP: Menopause. Presents for annual exam. She voices no complaints and is doing well. Denies any bowel or bladder problems. Denies any breast problems. Denies any postmenopausal bleeding. OB History 2 Para 2 Term 2 0 AB 0 Living 2 SAB 0 IAB 0 Ectopic 0 Multiple 0 Live Births 2 Past Medical History: Diagnosis Date Abnormal liver function tests 04/12/2022 Asymptomatic menopausal state History of menopause Encounter for gynecological examination (general) (routine) without abnormal findings Encounter for cervical Pap smear with pelvic exam Immunization not carried out because of patient refusal Influenza vaccination declined Other conditions influencing health status History of Personal history of other endocrine, nutritional and metabolic disease History of non anemic vitamin B12 deficiency Personal history of other medical treatment H/O bone density study Personal history of other medical treatment 2020 H/O mammogram Past Surgical History: Procedure Laterality Date COLONOSCOPY 06/06/2022 DR. NEGRON REPEAT 5 YEARS. DIVERTICULOSIS. NO SPECIMENS COLLECTED. HISTORY OF POLYP ENDOMETRIAL ABLATION 2007 THYROIDECTOMY 08/2009 TUBAL LIGATION Bilateral 01/1983 Past med hx and past surg hx reviewed and notable for: none Review of Systems: Constitutional: No fever or chills Respiratory: No shortness of breath, or cough Cardiovascular: No chest pain or syncope Breasts: No breast pain, no masses, no nipple discharge Gastrointestinal: No nausea, vomiting, or diarrhea, no abdominal pain Genitourinary: No dysuria or frequency Gynecology: Negative except as noted in history of present illness All other: All other systems reviewed and negative for complaint Objective BP 118/70 Ht 1.6 m (5' 3) Wt 103 kg (226 lb 3.2 oz) BMI 40.07 kg/m PHYSICAL EXAMINATION: Director Channel present for exam: Sabrina MunguiaRADHA Well-developed, well nourished, in no acute distress, alert and oriented x three, is pleasant and cooperative. HEENT: Clear. Pupils equal, round and reactive to light and accommodation. Extraocular muscles are intact. Oral mucosa pink without exudate. NECK: No lymphadenopathy, no thyromegaly. BREASTS: Symmetric, no palpable masses. No nipple discharge or retraction. LUNGS: Clear bilaterally. HEART: Regular rate and rhythm without murmurs. ABDOMEN: Normoactive bowel sounds, soft and nontender, no guarding or rebound tenderness, no CVA tenderness. EXTREMITIES: No clubbing, cyanosis or edema. NEUROLOGIC: Cranial nerves II-XII grossly intact. : Normal external female genitalia, normal vulva, normal vagina. Normal urethral meatus, urethra and bladder. Normal appearing cervix. Normal-sized uterus, no adnexal masses or tenderness. Pap smear performed today. Actions performed during this visit include: - Clinical breast exam - Clinical pelvic exam - Orders Placed This Encounter Procedures BI mammo bilateral screening tomosynthesis Standing Status: Future Standing Expiration Date: 05/03/2025 Order Specific Question: Reason for exam: Answer: Screening Order Specific Question: Radiologist to Determine Optimal Study Answer: Yes Order Specific Question: Release result to [employer] Answer: Immediate [1] Order Specific Question: Is this exam part of a Research Study? If Yes, link this order to the research study Answer: No Problem List Items Addressed This Visit None Visit Diagnoses Encounter for screening mammogram for malignant neoplasm of breast Relevant Orders BI mammo bilateral screening tomosynthesis Encounter for gynecological examination without abnormal finding Relevant Orders THINPREP PAP TEST Encounter for screening for cervical cancer Relevant Orders THINPREP PAP TEST Provider Impression: 1. Annual 2. Screening mammogram Thank you for coming to your annual exam. Your findings during the exam were normal. Please return for your next visit in 1 year. documented in this encounter [facility] Work Phone: 07-23-2023 History of Present illness Narrative Subjective Patient ID: Yayo Chen is a 63 y.o. female who presents for Follow-up (2 WEEKS LABS AND DEXA ,. NO ADDITIONAL CONCERNS ). HPI F/U ON LABS AND BONE DENSITY . MED REFILL HAS NO COMPLAINTS. Review of Systems Constitutional: Negative for chills and fever. HENT: Negative. Negative for congestion, postnasal drip and rhinorrhea. Eyes: Negative. Negative for visual disturbance. Respiratory: Negative for cough, shortness of breath and wheezing. Cardiovascular: Negative. Negative for chest pain, palpitations and leg swelling. Gastrointestinal: Negative. Negative for abdominal distention, abdominal pain, constipation, diarrhea, nausea and vomiting. Endocrine: Negative. Genitourinary: Negative for dysuria and urgency. Musculoskeletal: Negative. Negative for back pain. Skin: Negative. Negative for rash. Allergic/Immunologic: Negative for immunocompromised state. Neurological: Negative. Negative for dizziness, weakness, light-headedness and headaches. Psychiatric/Behavioral: Negative. Negative for agitation. Objective Physical Exam Constitutional: General: She is not in acute distress. HENT: Head: Normocephalic. Nose: Nose normal. Mouth/Throat: Mouth: Mucous membranes are moist. Eyes: Conjunctiva/sclera: Conjunctivae normal. Pupils: Pupils are equal, round, and reactive to light. Cardiovascular: Rate and Rhythm: Normal rate and regular rhythm. Pulses: Normal pulses. Heart sounds: Normal heart sounds. Pulmonary: Effort: No respiratory distress. Breath sounds: No wheezing. Chest: Chest wall: No tenderness. Abdominal: General: Abdomen is flat. Bowel sounds are normal. Palpations: Abdomen is soft. Tenderness: There is no abdominal tenderness. Musculoskeletal: General: No tenderness. Normal range of motion. Cervical back: Normal range of motion. Lymphadenopathy: Cervical: No cervical adenopathy. Skin: General: Skin is warm and dry. Findings: No rash. Neurological: General: No focal deficit present. Mental Status: She is alert. Mental status is at baseline. Psychiatric: Mood and Affect: Mood normal. Behavior: Behavior normal. Assessment/Plan 1. Vitamin D deficiency ergocalciferol (Vitamin D-2) 1.25 MG (54655 UT) capsule Vitamin D 25-Hydroxy,Total (for eval of Vitamin D levels) 2. Benign essential HTN Comprehensive Metabolic Panel lisinopril 10 mg tablet 3. Adult hypothyroidism levothyroxine (Synthroid, Levoxyl) 150 mcg tablet 4. Osteopenia, unspecified location 5. Total bilirubin, elevated TEST RESULTS WERE DISCUSSED. ADVISED TO ADD OTC VIT D 1000 UNIT BID TO PRESCRIPTION VIT D. ADVISED TO TAKE OTC CA 600 MG BID. ADVISED TO HAVE LOW FAT AND LOW CALORIE DIET AND TO LOOSE WEIGHT, DAILY EXERCISE. 4 mon documented in this encounter [facility] Work Phone: 07-02-2023 History of Present illness Narrative Subjective Patient ID: Yayo Chen is a 63 y.o. female who presents for Follow-up (MED REFILL WOULD LIKE TO DISCUSS OPTIONS TO HELP WITH WEIGHT). HPI F/U ON HTN . HAS FATIGUE, CHRONIC WEIGHT GAIN. Review of Systems Constitutional: Positive for fatigue. Negative for chills and fever. WEIGHT GAIN HENT: Negative. Negative for congestion, postnasal drip and rhinorrhea. Eyes: Negative. Negative for visual disturbance. Respiratory: Negative for cough, shortness of breath and wheezing. Cardiovascular: Negative. Negative for chest pain, palpitations and leg swelling. Gastrointestinal: Negative. Negative for abdominal distention, abdominal pain, constipation, diarrhea, nausea and vomiting. Endocrine: Negative. Genitourinary: Negative for dysuria and urgency. Musculoskeletal: Negative. Negative for back pain. Skin: Negative. Negative for rash. Allergic/Immunologic: Negative for immunocompromised state. Neurological: Negative. Negative for dizziness, weakness, light-headedness and headaches. Psychiatric/Behavioral: Negative. Negative for agitation. Objective Physical Exam Constitutional: General: She is not in acute distress. HENT: Head: Normocephalic. Nose: Nose normal. Mouth/Throat: Mouth: Mucous membranes are moist. Eyes: Conjunctiva/sclera: Conjunctivae normal. Pupils: Pupils are equal, round, and reactive to light. Cardiovascular: Rate and Rhythm: Normal rate and regular rhythm. Pulses: Normal pulses. Heart sounds: Normal heart sounds. Pulmonary: Effort: No respiratory distress. Breath sounds: No wheezing. Chest: Chest wall: No tenderness. Abdominal: General: Abdomen is flat. Bowel sounds are normal. Palpations: Abdomen is soft. Tenderness: There is no abdominal tenderness. Musculoskeletal: General: No tenderness. Normal range of motion. Cervical back: Normal range of motion. Lymphadenopathy: Cervical: No cervical adenopathy. Skin: General: Skin is warm and dry. Findings: No rash. Neurological: General: No focal deficit present. Mental Status: She is alert. Mental status is at baseline. Psychiatric: Mood and Affect: Mood normal. Behavior: Behavior normal. Assessment/Plan 1. Vitamin D deficiency Vitamin D 25-Hydroxy,Total (for eval of Vitamin D levels) 2. Lipid screening levothyroxine (Synthroid, Levoxyl) 150 mcg tablet 3. Secondary hypertension lisinopril 10 mg tablet 4. Adult hypothyroidism TSH with reflex to Free T4 if abnormal 5. Glucose intolerance (impaired glucose tolerance) Comprehensive Metabolic Panel Hemoglobin A1C 6. Benign essential hypertension Comprehensive Metabolic Panel 7. Borderline hyperlipidemia Lipid Panel 8. Hypocalcemia Comprehensive Metabolic Panel 9. Fatigue, unspecified type CBC and Auto Differential Magnesium TSH with reflex to Free T4 if abnormal Zinc 10. Post-menopausal XR DEXA bone density ADVISED TO HAVE LOW FAT AND LOW CALORIE DIET AND TO LOOSE WEIGHT, DAILY EXERCISE. MONITOR BP GOAL BP LOWER THAN 130/80 LOW SALT EXERCISE DAILY MDM 1) COMPLEXITY: 1 UNDIAGNOSED NEW PROBLEM WITH UNCERTAIN PROGNOSIS 2)DATA: TESTS INTERPRETED AND OR ORDERED, TOOK INDEPENDENT HISTORY OR RECORDS REVIEWED 3)RISK: MODERATE RISK DUE TO NATURE OF MEDICAL CONDITIONS/COMORBIDITY OR MEDICATIONS ORDERED OR SURGICAL OR PROCEDURE REFERRAL, . 2 week. Handout for diabetic diet to help with weight loss. documented in this encounter [facility] Work Phone: 03-31-2023 History of Present illness Narrative Yayo Chen is a 63 y.o. female who is here for a routine exam. PCP = Breanna Obrien MD Chief Complaint Patient presents with Gynecologic Exam Patient is here for yearly exam and pap test. Patient does not do regular self breast exams and has no concerns at this time. LMP: Menopause. Presents for annual exam. She voices no complaints and is doing well. Denies any bowel or bladder problems. Denies any breast problems. Denies any postmenopausal bleeding. OB History 2 Para 2 Term 2 0 AB 0 Living 2 SAB 0 IAB 0 Ectopic 0 Multiple 0 Live Births 2 Past Medical History: Diagnosis Date Asymptomatic menopausal state History of menopause Encounter for gynecological examination (general) (routine) without abnormal findings Encounter for cervical Pap smear with pelvic exam Immunization not carried out because of patient refusal Influenza vaccination declined Other conditions influencing health status History of Personal history of other endocrine, nutritional and metabolic disease History of non anemic vitamin B12 deficiency Personal history of other medical treatment H/O bone density study Personal history of other medical treatment 2020 H/O mammogram Past Surgical History: Procedure Laterality Date ENDOMETRIAL ABLATION OTHER SURGICAL HISTORY 2020 Thyroidectomy OTHER SURGICAL HISTORY 2020 Colonoscopy TUBAL LIGATION Bilateral Past med hx and past surg hx reviewed and notable for: none Review of Systems: Constitutional: No fever or chills Respiratory: No shortness of breath, or cough Cardiovascular: No chest pain or syncope Breasts: No breast pain, no masses, no nipple discharge Gastrointestinal: No nausea, vomiting, or diarrhea, no abdominal pain Genitourinary: No dysuria or frequency Gynecology: Negative except as noted in history of present illness All other: All other systems reviewed and negative for complaint Objective BP 112/72 Ht 1.6 m (5' 3) Wt 105 kg (230 lb 6.4 oz) BMI 40.81 kg/m PHYSICAL EXAMINATION: Well-developed, well nourished, in no acute distress, alert and oriented x three, is pleasant and cooperative. HEENT: Clear. Pupils equal, round and reactive to light and accommodation. Extraocular muscles are intact. Oral mucosa pink without exudate. NECK: No lymphadenopathy, no thyromegaly. BREASTS: Symmetric, no palpable masses. No nipple discharge or retraction. LUNGS: Clear bilaterally. HEART: Regular rate and rhythm without murmurs. ABDOMEN: Normoactive bowel sounds, soft and nontender, no guarding or rebound tenderness, no CVA tenderness. EXTREMITIES: No clubbing, cyanosis or edema. NEUROLOGIC: Cranial nerves II-XII grossly intact. : Normal external female genitalia, normal vulva, normal vagina. Normal urethral meatus, urethra and bladder. Normal appearing cervix. Normal-sized uterus, no adnexal masses or tenderness. Pap smear performed today. Actions performed during this visit include: - Clinical breast exam - Clinical pelvic exam - Orders Placed This Encounter Procedures BI mammo bilateral screening tomosynthesis Standing Status: Future Standing Expiration Date: 06/01/2024 Order Specific Question: Reason for exam: Answer: Screening Order Specific Question: Radiologist to Determine Optimal Study Answer: Yes Order Specific Question: Release result to [employer] Answer: Immediate [1] Order Specific Question: Is this exam part of a Research Study? If Yes, link this order to the research study Answer: No Problem List Items Addressed This Visit None Visit Diagnoses Encounter for gynecological examination without abnormal finding Relevant Orders THINPREP PAP TEST Encounter for screening for cervical cancer Relevant Orders THINPREP PAP TEST Encounter for screening mammogram for breast cancer Relevant Orders BI mammo bilateral screening tomosynthesis Provider Impression: 1. Annual 2. Screening mammogram Thank you for coming to your annual exam. Your findings during the exam were normal. Please return for your next visit in 1 year. documented in this encounter [facility] Work Phone: 03-26-2022 Note 61 Date of Procedure: 03/26/2022 Pathologist: [facility], Cytology Date Reported: 04/05/2022 Date Received: 03/26/2022 Submitting Physician: BRADY BECKER MD FINAL CYTOLOGICAL INTERPRETATION A. THINPREP PAP CERVICAL: Specimen adequacy: SATISFACTORY FOR EVALUATION. Quality Indicator: Endocervical/transformation zone component is present. General Categorization: NEGATIVE FOR INTRAEPITHELIAL LESION OR MALIGNANCY. HIGH RISK HPV TEST RESULT: HPV GENOTYPE 16 NEGATIVE HPV GENOTYPE 18 NEGATIVE HPV GENOTYPE OTHER NEGATIVE Reference Range: Negative Slide(s) initially screened by a C Software Engineer at [facility], [id number] [id number] QC review performed at [facility], [address] [place] [address] Testing for high-risk (HR) type of human papilloma virus (HPV) is performed by the Yan kofi HPV Test. The kofi HPV Test is a qualitative polymerase chain reaction that amplifies DNA of HPV16, HPV18 and 12 other high-risk HPV types (31, 33, 35, 39, 45, 51, 52, 56, 58, 59, 66, and 68) associated with cervical cancer and its precursor lesions. A positive result indicates the presence of HPV DNA due to one or more of the 14 genotypes: 16, 18, 31, 33, 35, 39, 45, 51, 52, 56, 58, 59, 66, and 68. Negative results indicate HPV DNA concentrations are undetectable or below the pre-set threshold for detection. False negative results may be associated with unoptimized sampling. A negative HR HPV result does not exclude the possibility of future cytologic HSIL or underlying CIN2-3 or cancer. This test is approved for cervical specimens by the [place] Food and Drug Administration. Results of this test should be interpreted in conjunction with the patient?s Pap test results. Please refer to ASCCP current guidelines for the use of HPV DNA testing, result interpretation, and patient management. The performance of this test was verified by the [facility] at [facility]. The lab is certified under the Clinical Laboratory Amendments of 1988 (CLIA 88) as qualified to perform high complexity clinical laboratory testing. This specimen has been analyzed by the VoluBillPrep Imaging System ([employer] an automated imaging and review system, which assists the laboratory in evaluating cells on ThinPrep Pap tests. Following automated imaging, selected jurado from every slide were reviewed by a garment patternmaker and/or pathologist. Electronically Signed Out By [facility], Cytology//MXG/JMD By the signature on this report, the individual or group listed as making the Final Interpretation/Diagnosis certifies that they have reviewed this case. Diagnostic interpretation performed at [facility] [address] [place] [id number] Educational Note: Cervical cytology is a screening procedure primarily for squamous cancers and precursors and has associated false-negative and false-positive results as evidenced by published data. Your patient?s test should be interpreted in this context, together with patient?s history and clinical findings. Regular sampling and follow-up of unexplained clinical signs and symptoms are recommended to minimize false negative results. Clinical History Date of Last Menstrual Period: OTTONIEL Other Clinical Conditions: COTEST HPV(Genotype) except for ASC-H, HSIL, Carcinoma - Include HPV Genotype testing Annual Clinical Diagnosis History: Screening for cervical cancer - (Z12.4); Women's annual routine gynecological examination - (Z01.419) Source of Specimen A: THINPREP PAP CERVICAL [facility] Department of Pathology [address] [place] [address] [facility] Comment on above: Performed By: #### C #### [facility] Cytology [address] [facility] [address] 01-07-2021 Chief complaint Narrative - Reported An interactive audio and video telecommunication system which permits real time communications between the patient (at the originating site) and provider (at the distant site) was utilized to provide this telehealth service.VIRTUAL VISIT- PT C/O FATIGUE, COUGH, CHEST CONGESTION, BODYACHES. HASN'T HAD A FEVER OR HEADACHE IN FEW DAYS. TESTED POSITIVE FOR COVID 8 DAYS AGO AT URGENT CARE. IS TAKING VITAMIN C AND A COUGH MEDICATION AND HAS INCREASED FLUID INTAKE. [facility] Work Phone: 01-06-2021 History of Present illness Narrative F/U AFTER COVID INFECTION, LAST MONTH. HAS MILD DRY COUGH LEFT SINCE THE COVID INFECTION ON AND OFF. TASTE AND SMELL ARE ALMOST BACK. [facility] Work Phone: 01-05-2021 History of Present illness Narrative VIRTUAL VISIT DUE TO COVID19 .F/U ON COVID INFECTION ,PT WAS DX AT URGENT CARE ON 01/05. FEELS BETTER THAN LAST WEEK, BUT STILL HAS THE COUGH (SOMETIMES PRODUCTIVE) WITH CHEST AND SINUS CONGESTION AND FATIGUE . OTC TX DOESN'T HELP MUCH. DENIES HAVING SOB OR FEVER. SE GOT DEXA INJECTION AT URGENT CARE WHICH HELPS ,BUT SYMPTOMS CAME BACK AFTER SEVERAL DAYS . [facility] Work Phone: 12-13-2020 History of Present illness Narrative LAB F/U ([facility]) , MED REFILL. H/O COVID IN SEP, HASN'T GOTTEN THE VACCINE YET.GETS RUQ ABDOMINAL PAIN 4-6/10 ON AND OFF X SEVERAL WEEKS , WHICH IS WORSE AFTER EATING MEALS . SKIN MOLE OF L UPPER BACK , NOTICED IT RECENTLY (PENDING FACTORY EXPERT VISIT IN 6 MONTHS) [facility] Work Phone: Evaluation note Diagnosis Encounter for gynecological examination without abnormal finding Encounter for screening for cervical cancer Encounter for screening mammogram for breast cancer documented in this encounter [facility] Work Phone: Evaluation note* Diagnosis Vitamin D deficiency- Primary Lipid screening Screening for lipoid disorders Secondary hypertension Other secondary hypertension, unspecified Adult hypothyroidism Unspecified hypothyroidism Glucose intolerance (impaired glucose tolerance) Impaired glucose tolerance test Benign essential hypertension Essential hypertension, benign Borderline hyperlipidemia Hypocalcemia Fatigue, unspecified type Post-menopausal Asymptomatic postmenopausal status (age-related) (natural) documented in this encounter [facility] Work Phone: Evaluation note* Diagnosis Post-menopausal Asymptomatic postmenopausal status (age-related) (natural) documented in this encounter [facility] Work Phone: Evaluation note* Diagnosis Vitamin D deficiency- Primary Benign essential HTN Adult hypothyroidism Unspecified hypothyroidism Osteopenia, unspecified location Total bilirubin, elevated Glucose intolerance (impaired glucose tolerance) Impaired glucose tolerance test documented in this encounter [facility] Work Phone: Evaluation note* Diagnosis Encounter for screening mammogram for malignant neoplasm of breast Encounter for gynecological examination without abnormal finding Encounter for screening for cervical cancer documented in this encounter [facility] Work Phone: Evaluation note* Diagnosis Encounter for screening mammogram for malignant neoplasm of breast documented in this encounter [facility] Work Phone: Evaluation note* Diagnosis Chronic fatigue- Primary Other malaise and fatigue Vitamin D deficiency Adult hypothyroidism Unspecified hypothyroidism Benign essential HTN Impaired fasting glucose Anxiety Anxiety state, unspecified Morbid obesity with BMI of 40.0-44.9, adult (Multi) documented in this encounter [facility] Work Phone: Evaluation note* Diagnosis Routine general medical examination at health care facility- Primary Routine general medical examination at a health care facility Impaired fasting glucose Adult hypothyroidism Unspecified hypothyroidism Hypercholesteremia Pure hypercholesterolemia Hypertriglyceridemia Pure hyperglyceridemia Benign essential HTN Fatigue, unspecified type documented in this encounter [facility] Work Phone: Evaluation noteNo assessment information available [facility] Work Phone: History of Present illness NarrativePresents for annual exam. She voices no complaints and is doing well. Denies any bowel or bladder problems. Denies any breast problems. Denies any postmenopausal bleeding.[facility] Work Phone: History of Present illness NarrativeLAB F/U, MED REFILL. HAS CHRONC LUMP OF L 5TH FINGER X 2 YEARS ,WHICH HAS BEEN GETTING BIGGER SLOWLY. WITH PAIN / . NO H/O TRAUMA. PT IS RIGHT HANDED. BRITTLE NAILS .- [facility] Internal Medicine Work Phone: Reason for referral (narrative)No reason for referral information availableK[facility] Work Phone: Reason for visit Narrative* Imaging (Routine) - Pending Review Specialty Diagnoses / Procedures Referred By Manjinder danielle Referred To Contact Radiology Diagnoses Encounter for screening mammogram for malignant neoplasm of breast Procedures BI mammo bilateral screening tomosynthesis Brady Beckre MD [address] [place] [address] [facility], [place] [address] Phone: tel: fax: Referral ID Status Reason Start Date Expiration Date Visits Requested Visits Authorized [id number] Pending Review Perform Procedure 4 04/02/2025 1 1 [facility] Work Phone: Summary Purpose Family History Grandparent Name Dates Details Family history of cardiac di sorder(V17.49, Z82.49) Status:Active Mother Name Dates Details Family history of chronic ob structive pulmonary disease(V17.6, Z82.5) Status:Active Family history of malignant neoplasm of female breast(V16.3, Z80.3) Status:Active Father Name Dates Details Family history of diabetes m ellitus(V18.0, Z83.3) Status:Active Family history of malignant neoplasm of urinary bladder(V16.52, Z80.52) Status:Active Unknown Family Member Name Dates Details Family history of chronic ob structive pulmonary disease: Mother(V17.6, Z82.5) Status:Active Family history of diabetes m ellitus: Father(V18.0, Z83.3) Status:Active Family history of malignant neoplasm of urinary bladder: Father(V16.52, Z80.52) Status:Active Family history of cardiac di sorder: Grandparent(V17.49, Z82.49) Status:Active Family history of malignant neoplasm of female breast: Mother(V16.3, Z80.3) Comments:mom 60s. Mat cousin 40s?; Status:Active Unknown Family Member Name Dates Details Family history of chronic ob structive pulmonary disease: Mother(V17.6, Z82.5) Status:Active Family history of diabetes m ellitus: Father(V18.0, Z83.3) Status:Active Family history of malignant neoplasm of urinary bladder: Father(V16.52, Z80.52) Status:Active Family history of cardiac di sorder: Grandparent(V17.49, Z82.49) Status:Active Family history of malignant neoplasm of female breast: Mother(V16.3, Z80.3) Comments:mom 60s. Mat cousin 40s?; Status:Active Unknown Family Member Name Dates Details Family history of chronic ob structive pulmonary disease: Mother(V17.6, Z82.5) Status:Active Family history of diabetes m ellitus: Father(V18.0, Z83.3) Status:Active Family history of malignant neoplasm of urinary bladder: Father(V16.52, Z80.52) Status:Active Family history of cardiac di sorder: Grandparent(V17.49, Z82.49) Status:Active Family history of malignant neoplasm of female breast: Mother(V16.3, Z80.3) Comments:mom 60s. Mat cousin 40s?; Status:Active Unknown Family Member Name Dates Details Family history of malignant neoplasm of female breast: Mother(V16.3, Z80.3) Comments:mom 60s. Mat cousin 40s?; Status:Active Family history of cardiac di sorder: Grandparent(V17.49, Z82.49) Status:Active Family history of malignant neoplasm of urinary bladder: Father(V16.52, Z80.52) Status:Active Family history of diabetes m ellitus: Father(V18.0, Z83.3) Status:Active Family history of chronic ob structive pulmonary disease: Mother(V17.6, Z82.5) Status:Active Unknown Family Member Name Dates Details Family history of malignant neoplasm of female breast: Mother(V16.3, Z80.3) Comments:mom 60s. Mat cousin 40s?; Status:Active Family history of cardiac di sorder: Grandparent(V17.49, Z82.49) Status:Active Family history of malignant neoplasm of urinary bladder: Father(V16.52, Z80.52) Status:Active Family history of diabetes m ellitus: Father(V18.0, Z83.3) Status:Active Family history of chronic ob structive pulmonary disease: Mother(V17.6, Z82.5) Status:Active Unknown Family Member Name Dates Details Family history of malignant neoplasm of female breast: Mother(V16.3, Z80.3) Comments:mom 60s. Mat cousin 40s?; Status:Active Family history of cardiac di sorder: Grandparent(V17.49, Z82.49) Status:Active Family history of malignant neoplasm of urinary bladder: Father(V16.52, Z80.52) Status:Active Family history of diabetes m ellitus: Father(V18.0, Z83.3) Status:Active Family history of chronic ob structive pulmonary disease: Mother(V17.6, Z82.5) Status:Active Unknown Family Member Name Dates Details Family history of chronic ob structive pulmonary disease: Mother(V17.6, Z82.5) Status:Active Family history of diabetes m ellitus: Father(V18.0, Z83.3) Status:Active Family history of malignant neoplasm of urinary bladder: Father(V16.52, Z80.52) Status:Active Family history of cardiac di sorder: Grandparent(V17.49, Z82.49) Status:Active Family history of malignant neoplasm of female breast: Mother(V16.3, Z80.3) Comments:mom 60s. Mat cousin 40s?; Status:Active Unknown Family Member Name Dates Details Family history of chronic ob structive pulmonary disease: Mother(V17.6, Z82.5) Status:Active Family history of diabetes m ellitus: Father(V18.0, Z83.3) Status:Active Family history of malignant neoplasm of urinary bladder: Father(V16.52, Z80.52) Status:Active Family history of cardiac di sorder: Grandparent(V17.49, Z82.49) Status:Active Family history of malignant neoplasm of female breast: Mother(V16.3, Z80.3) Comments:mom 60s. Mat cousin 40s?; Status:Active Unknown Family Member Name Dates Details Family history of chronic ob structive pulmonary disease: Mother(V17.6, Z82.5) Status:Active Family history of diabetes m ellitus: Father(V18.0, Z83.3) Status:Active Family history of malignant neoplasm of urinary bladder: Father(V16.52, Z80.52) Status:Active Family history of cardiac di sorder: Grandparent(V17.49, Z82.49) Status:Active Family history of malignant neoplasm of female breast: Mother(V16.3, Z80.3) Comments:mom 60s. Mat cousin 40s?; Status:Active Unknown Family Member Name Dates Details Family history of chronic ob structive pulmonary disease: Mother(V17.6, Z82.5) Status:Active Family history of diabetes m ellitus: Father(V18.0, Z83.3) Status:Active Family history of malignant neoplasm of urinary bladder: Father(V16.52, Z80.52) Status:Active Family history of cardiac di sorder: Grandparent(V17.49, Z82.49) Status:Active Family history of malignant neoplasm of female breast: Mother(V16.3, Z80.3) Comments:mom 60s. Mat cousin 40s?; Status:Active Unknown Family Member Name Dates Details Family history of chronic ob structive pulmonary disease: Mother(V17.6, Z82.5) Status:Active Family history of diabetes m ellitus: Father(V18.0, Z83.3) Status:Active Family history of malignant neoplasm of urinary bladder: Father(V16.52, Z80.52) Status:Active Family history of cardiac di sorder: Grandparent(V17.49, Z82.49) Status:Active Family history of malignant neoplasm of female breast: Mother(V16.3, Z80.3) Comments:mom 60s. Mat cousin 40s?; Status:Active Unknown Family Member Name Dates Details Family history of chronic ob structive pulmonary disease: Mother(V17.6, Z82.5) Status:Active Family history of diabetes m ellitus: Father(V18.0, Z83.3) Status:Active Family history of malignant neoplasm of urinary bladder: Father(V16.52, Z80.52) Status:Active Family history of cardiac di sorder: Grandparent(V17.49, Z82.49) Status:Active Family history of malignant neoplasm of female breast: Mother(V16.3, Z80.3) Comments:mom 60s. Mat cousin 40s?; Status:Active Relationship Condition Age at Onset Recorded Date/T jose father Malignant neoplasm of urinary bladder Unk nown Diabetes mellitus Unknown mother Malignant neoplasm of breast Unknown Malignant melanoma Unknown grandmother Arthritis Unknown Advance Directives No Advanced Directives Records FoundNo Advanced Directives Records FoundNo Advanced Directives Records FoundNo Advanced Directives Records FoundNo Advanced Directives Records FoundNo Advanced Directives Records FoundNo Advanced Directives Records Found Instructions Name Dates Details Instructions not documented History of Present Illness * 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 HPI Yayo Chen is a 58 y.o. female who presents to the walk in department with complaint of a rash to the LEFT side of face around mouth - cheek. The patient states that the rash is painful and that it does not cross the midline portion of the body. It started this AM but pain has been there a couple days. The patient denies any fevers or chills. REVIEW OF SYSTEMS Constitutional: Negative for fever, chills, no fatigue. Skin: see HPI Eyes: Negative for blurred vision, double vision, eye pain, eye discharge, eye redness and eye watering. Cardiovascular: Negative for chest pain, dyspnea on exertion, palpitations, orthopnea, claudication, leg swelling and PND. Respiratory: Negative for cough. No shortness of breath, wheezing or stridor. Gastrointestinal: Negative for heartburn, nausea, vomiting, abdominal pain, diarrhea, constipation,blood in stool, melena. Musculoskeletal: Negative for myalgias, back pain, joint pain and falls. Neurological: Negative for dizziness, tingling, sensory change, speech change, focal weakness, seizures, loss of consciousness and headaches. PAST MEDICAL HISTORY No past medical history on file. SURGICAL HISTORY Past Surgical History: Procedure Laterality Date THYROIDECTOMY TUBAL LIGATION CURRENT MEDICATIONS Current Outpatient Medications Medication Sig Dispense Refill Cholecalciferol (D3-50) 92867 units Cap Take by mouth. levothyroxine 175 MCG Tab tablet TAKE 1 TABLET BY MOUTH EVERY DAY lisinopril 10 MG Tab tablet 10 mg daily. 11 valacyclovir 1 g Tab Take 1 tablet by mouth 3 times daily for 7 days. 21 tablet 0 No current facility-administered medications for this visit. ALLERGIES No Known Allergies FAMILY HISTORY History reviewed. No pertinent family history. SOCIAL HISTORY Social History Socioeconomic History Marital status: Spouse name: Not on file Number of children: Not on file Years of education: Not on file Highest education level: Not on file Occupational History Not on file Social Needs Financial resource strain: Not on file Food insecurity: Worry: Not on file Inability: Not on file Transportation needs: Medical: Not on file Non-medical: Not on file Tobacco Use Smoking status: Never Smoker Smokeless tobacco: Never Used Substance and Sexual Activity Alcohol use: Not Currently Drug use: Never Sexual activity: Yes Partners: Male control/protection: Tubal Ligation, Menopause Lifestyle Physical activity: Days per week: Not on file Minutes per session: Not on file Stress: Not on file Relationships Social connections: Talks on phone: Not on file Gets together: Not on file Attends religion service: Not on file Active member of club or organization: Not on file Attends meetings of clubs or organizations: Not on file Relationship status: Not on file Intimate partner violence: Fear of current or ex partner: Not on file Emotionally abused: Not on file Physically abused: Not on file Forced sexual activity: Not on file Other Topics Concern Service Not Asked Blood Transfusions Not Asked Caffeine Concern Not Asked Occupational Exposure Not Asked Hobby Hazards Not Asked Sleep Concern Not Asked Stress Concern Not Asked Weight Concern Not Asked Special Diet Not Asked Back Care Not Asked Exercise Not Asked Bike Helmet Not Asked Seat Belt Not Asked Domestic Violence No Social History Narrative Not on file PHYSICAL EXAM Blood pressure 124/70, pulse 72, temperature 98.3 F (36.8 C), temperature source Oral, resp. rate 16, height 1.6 m (5' 3), weight 97.3 kg (214 lb 6.4 oz), SpO2 96 %. Constitutional: Oriented and well-developed, well-nourished, and in no distress. Non-toxic appearance. HEENT: Head: Normocephalic and atraumatic. Nose: No mucosal edema, rhinorrhea, nasal deformity or septal deviation. Mouth/Throat: Uvula is midline, oropharynx is clear and moist and mucous membranes are normal. No oral lesions. No oropharyngeal exudate or posterior oropharyngeal erythema. No asymmetry or fullness.No stridor. Eyes: Extra ocular muscles intact.. Pupils are equal, round, and reactive to light. No discharge. No scleral icterus. Pulmonary/Chest: Effort normal and breath sounds normal. Musculoskeletal: Normal range of motion. No edema and no tenderness. Neurological: Alert and oriented. Normal muscle tone. . Skin: Skin is warm and dry. There is a vesicular type rash on the left side of chin and cheek that does not cross the midline of the body. Painful to palpation. No cyanosis or erythema. No pallor. Nails show no clubbing. MEDICAL DECISION MAKING: ORDERS/RESULTS: Orders Placed This Encounter levothyroxine 175 MCG Tab tablet Cholecalciferol (D3-50) 63893 units Cap lisinopril 10 MG Tab tablet valacyclovir 1 g Tab No results found for this or any previous visit. IMAGING: No orders to display CLINICAL IMPRESSION: 1. Herpes zoster without complication DISPOSITION: Discussed pain medication if needed to call her PCP. Risks and SE of medications were reviewed. Shedenied any questions and voices understanding. No follow-ups on file. New Prescriptions VALACYCLOVIR 1 G TAB Take 1 tablet by mouth 3 times daily for 7 days. Discontinued Medications No medications on file An after visit summary was printed and given to the patient with the above information. Portions of this chart were created using [employer] electronic dictation. Please excuse any typographical or grammatical errors contained herein. documented in this encounter Assessments Diagnosis Herpes zoster without complication- Primary Chief Complaint F/U COVID POSITIVE 01/05/2021- TASTE AND SMELL ARE ALMOST BACK. PT STILL HAS A DRY TASTE.3 WK F/U WITH LABS3 WK F/U WITH LABS* Patient is here for yearly exam. Patient does self breast exams regularly. LMP OTTONIEL * PT HAS NO CONCERNS. ANNUAL WELLNESS AND LABS ([facility]). MED REFILLSANNUAL WELLNESS AND LABS ([facility]). MED REFILLS Reason for Referral Specialty Diagnoses / Procedures Referred By Contac t Referred To Contact Radiology Diagnoses Encounter for screening mammogram for breast cancer Procedures BI mammo bilateral screening tomosynthesis Brady Becker MD [address] [facility] [place] [address] Referral ID Status Reason Start Date Expiration Date Visits Requested Visits Authorized [id number] Authorized Perform Procedure 3 03/30/2024 1 1 Specialty Diagnoses / Procedures Referred By Manjinder danielle Referred To Contact Radiology Diagnoses Post-menopausal Procedures XR DEXA bone density Breanna Obrien MD [address] [facility] [place] [address] Referral ID Status Reason Start Date Expiration Date Visits Requested Visits Authorized [id number] Pending Review Perform Procedure 07/02/2023 07/01/2024 1 1 Chief Complaint and Reason for Visit Chief Complaint Admit Date CYST L 5TH FINGER September 30, 2024 1:04 pm Additional Source Comments INFORMATION SOURCE (unrecogn ized section and content) DATE CREATED AUTHOR 10/27/2018 [facility] DATE CREATED AUTHOR AUTHOR'S ORGANIZ ATION 01/16/2019 [facility] DATE CREATED AUTHOR AUTHOR'S ORGANIZ ATION 05/07/2022 [employer] DATE CREATED AUTHOR AUTHOR'S ORGANIZ ATION 06/07/2022 [facility] DATE CREATED AUTHOR AUTHOR'S ORGANIZ ATION 06/13/2022 [facility] DATE CREATED AUTHOR AUTHOR'S ORGANIZ ATION 04/29/2024 [facility] DATE CREATED AUTHOR AUTHOR'S ORGANIZ ATION 09/08/2024 [facility] Reason for Visit (unrecogniz ed section and content) Reason Comments Shingles left side of face bu rns and tingle, had for 3 days. Reason Comments Gynecologic Exam Patient is here for yearly exam and pap test. Patient does not do regular self breast exams and has no concerns at this time. LMP: Menopause. Reason Comments Follow-up MED REFILL WOULD LIK E TO DISCUSS OPTIONS TO HELP WITH WEIGHT Specialty Diagnoses / Procedures Referred By Contac t Referred To Contact Radiology Diagnoses Post-menopausal Procedures XR DEXA bone density Breanna Obrien MD [address] [place] [address] Referral ID Status Reason Start Date Expiration Date Visits Requested Visits Authorized [id number] Pending Review Perform Procedure 07/02/2023 07/01/2024 1 1 Reason Comments Follow-up 2 WEEKS LABS AND DEX A ,. NO ADDITIONAL CONCERNS Reason Comments Follow-up GENERAL CHECK UP [facility] LABS - [facility] Reason Comments Welcome To Medicare WELCOME TO MEDICARE WELLNESS + 3 WEEK F/U LABS ([facility]) <item> Privacy Markings (unrecogniz ed section and content) Section Author: Ale Donovan PROHIBITION ON REDISCLOSURE OF CONFIDENTIAL INFORMATION This notice accompanies a disclosure of information concerning a client made to you with the consent of such client. 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 Start Date End Date Breanna Obrien MD [address] [place] [address] PCP - General 01/05/19 Breanna Obrien MD [address] [place] [address] PCP - [facility] PCP 08/12/22 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 Start Date End Date Breanna Obrien MD [address] [place] [address] PCP - General 01/05/19 Breanna Obrien MD [address] [place] [address] PCP - [employer] PCP 08/12/22 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 Start Date End Date Breanna Obrien MD [address] [place] [place] [address] PCP - General 01/05/19 Breanna Obrien MD [address] [place] [address] PCP - [employer] PCP 08/12/22 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 Start Date End Date Breanna Obrien MD [address] [place] [address] PCP - General 01/05/19 Breanna Obrien MD [address] [place] [address] PCP - [employer] PCP 08/12/22 Breanna Obrien MD [address] [place] [address] PCP - [employer] PCP 04/14/24 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 Joanie Magallanes , DO Primary Care Provider Active Team Status: Inactive Member Role Status Dates Dr. Joanie Magallanes DO Primary Care Provider Active Start: September 30, 2024 End: September 30, 2024 Dr. Joanie Magallanes DO Referring Provider Active Start: September 30, 2024 End: September 30, 2024 Dr. Sanjiv Cancino MD Attending Provider Active Start: September 30, 2024 End: September 30, 2024 Goals (unrecognized section and content) Goals may be documented in a n alternate section FOR RECORDS PERTAINING TO PATIENTS WHO ARE OR HAVE BEEN ENROLLED IN A CHEMICAL DEPENDENCY/SUBSTANCEABUSE PROGRAM, SOME INFORMATION MAY BE OMITTED. This clinical summary was aggregated from multiple sources. Caution should be exercised in using it in the provision of clinical care. This summary normalizes information from multiple sources, and as a consequence, information in this document may materially change the coding, format and clinical context of patient data. In addition, data may be omitted in some cases. CLINICAL DECISIONS SHOULD BE BASED ON THE PRIMARY CLINICAL RECORDS. [facility]. provides no warranty or guarantee of the accuracy or completeness of information in this document.
== END | disposition home or self-care (01) ==
LOC: RAD 13:55
PROVIDERS: PCP Internal Medicine; Referring Provider Surgery Plastic and Reconstructive Surgery; Visit Provider Surgery Plastic and Reconstructive Surgery
DX: M67.442 Ganglion, left hand (principal)
CPT/HCPCS: 73140

== ENCOUNTER 2024-10-13 12:02 | Day surgery (SDC) | payer MEDICARE, SELFPAY ==
[2024-10-13] VITALS (9 sets, daily range): BP systolic 110–132; BP diastolic 61–74; PULSE 72–87; RESP 16–18; TEMP 35.8–36.9; O2SAT 96–100; BMI 42.9
[2024-10-13] MEDS: Lactated Ringers 1,000 ML 15 ML IV (12:41)
--- NOTE | 2024-10-13 13:45 | MASS_PTH ---
PATIENT: YAYO CHEN LOC: [facility] U#:[id number] AGE/SX: 64/F ROOM: RE10/13/[address]: Dr. Sanjiv Cancino MD : 1960 BED: DIS: 10/13/2024 SPEC #: [id number] RECD: 10/14/24 10:08 STATUS: JUDY CHÁVEZ #: [id number] BRENDAN: 10/13/24 13:[address]: Sanjiv Cancino DEPT: SURGICAL PATHOLOGY RECD BY: Get Back ENTERED: 10/14/24 15:18 SP TYPE: Mass OTHR DR: Dr. Breanna Obrien MD Tissues: A - Finger, NOS Procedures: Surgery Specimen Level V HEADER OPERATION: Left small finger mucous cyst excision PRE-OP DIAGNOSIS: Mucous cyst on left small finger, left small finger mass, suspicious for giant cell tumor TISSUE SUBMITTED: A- Finger mass, suspicious for giant cell tumor, left small finger MICROSCOPIC DIAGNOSIS A. Finger, left, small, mass, excision: - Tenosynovial giant cell tumor, localized type. MICROSCOPIC DESCRIPTION Slides are reviewed. GROSS DESCRIPTION A. Received in formalin labeled with the patient's name and date of . Designated as finger mass suspicious for giant cell tumor left small finger is a 1.1 x 1.0 x 0.9 cm kay-white lobulated and fibrotic nodule devoid of orientation. Sectioning reveals kay and fibrotic cut surfaces. Entirely submitted in 1 cassette. VT 10/14/2024 CPT:94042
--- NOTE | 2024-10-13 13:54 | PRE.ANES_ITS ---
ASA Classification* ASA Classification ASA Classification: 3 Assessment & Plan Anesthesia* Anesthesia Assessment Anesthesia Assessment: Discussed sedation and/or anesthesia options, risks, benefits, and alternatives with patient/parents/legal guardian/POA. Questions invited. The patient/parents/legal guardian/POA seems to understand and agrees to proceed with anesthesia plan. Reviewed the physical assessment, medical history, allergy history and patient home medications list prior to surgery/procedure/anesthetic and documented any changes. Performed airway and anesthesia risk assessments. Anesthesia Type Anesthesia Type: MAC History Source History Obtained from:: Patient and Chart Anesthesia Focused Assessment* Temperature: 98.4 F Pulse Rate: 77 Blood Pressure: 131/74 Respiratory Rate: 18 Pulse Ox: 96 Oxygen Delivery Method: Room Air Airway Assessment Mouth opens: >3 cm Mallampati Score: IV Teeth Condition: Partial (Patient has upper partial. 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 When Was Last Pacemaker Check QUESTION #4 FULL TEXT: You/Your Family Experience fever (hyperthermia) with Anesthesia Last Oral Intake Last Oral intake: Last Oral Intake NPO since 08:00 10/13/24 12:35 Meds taken in AM with sips of Yes 10/13/24 12:35 water? Meds patient instructed to levothyroxine 10/13/24 12:35 take am of surgery Any additional information?: Yes Meds taken in AM with sips of water?: Yes PONV PONV - criminal defense lawyer: PONV - criminal defense lawyer Female Yes 10/08/24 10:38 HX of Motion Sickness No 10/08/24 10:38 HX of N/V After Surgery No 10/08/24 10:38 Non-Smoker Yes 10/08/24 10:38 Duration of Surgery greater No 10/08/24 10:38 than 60 minutes Number of Risk Factors 2 10/08/24 10:38 PONV Score Moderate Risk 10/08/24 10:38 Height & Weight Height & Weight: Anesthesia: Height & Weight Height 5 ft 3 in 10/13/24 12:35 Weight: 109.9 kg 10/13/24 12:35 Body Mass Index (BMI) 42.9 10/13/24 12:35 Respiratory Assessment Respiratory Assessment - criminal defense lawyer: Respiratory Tract Infection Hx - criminal defense lawyer Hx Respiratory Tract Infection No 10/08/24 10:38 STOP Sleep Apnea STOP Sleep Apnea - criminal defense lawyer: STOP Sleep Apnea - criminal defense lawyer Hx Hypertension Yes: on meds 10/08/24 10:38 Hx Sleep Apnea No 10/08/24 10:38 CPAP BIPAP Do you snore loudly (louder No 10/08/24 10:38 than talking or can be heard Do you often feel tired/ No 10/08/24 10:38 fatigued/ sleepy during daytime? Has anyone observed you stop No 10/08/24 10:38 breathing during sleep? STOP Results Negative 10/08/24 10:38 QUESTION #5 FULL TEXT : Do you snore loudly (louder than talking or can be heard through closed doors)? Tobacco Use History Tobacco Use History - criminal defense lawyer: Tobacco Use History - criminal defense lawyer Tobacco Use Smoking Status Never smoker 10/08/24 10:38 Hx Tobacco Use No 10/08/24 10:38 Years Smoking Packs Smoked per Day Smoking Cessation Date was within the last 15 years Hx Smoking Cessation Date Hx Smoking Cessation Counseling Hematologic Medial History Hematologic Hx - criminal defense lawyer: Hematologic Medical Hx - shift leader Hx of Blood Transfusion No 10/08/24 10:38 Hx of Transfusion in last 3 No 10/08/24 10:38 Months Date of Last Transfusion (if within last 3 months) Ever experience any problems No 10/08/24 10:38 with transfusion(s)? Specify any problems Hx of Preganancy in last 3 No 10/08/24 10:38 Months Nurse Filling Out Transfusion JZOLLELIZABETH 10/08/24 10:38 & Questions: Date: 10/08/24 10/08/24 10:38 Time: 10:41 10/08/24 10:38 Patient unable to answer at this time (ie. confused, unrespo /Reproduction History /Reproductive History - criminal defense lawyer: /Reproductive Hx- criminal defense lawyer Hx Now No 10/08/24 10:38 Gestational Age (in weeks): EDC: Hx Hx Para Hx Section SAB No 10/08/24 10:38 Active Medications Active Medications: Current Medications Generic Name Dose Route Start Last Admin Trade Name Freq PRN Reason Stop Dose Admin Cefazolin Sodium 2 gm/ Sodium 110 mls @ 200 mls/hr 10/13/24 13:45 Chloride IV 10/13/24 14:17 INTRAOP ONE Lactated Ringer's 1,000 mls @ 15 mls/hr 10/13/24 12:30 10/13/24 12:41 IV 15 mls/hr .Q48H MAHESH Administration PFSH Medical History (Updated 10/08/24 @ 10:38 by Grace Orona) Wears glasses Marijuana use Non-smoker Hypertension Home Medications ?Medication ?Instructions ?Recorded ?Last Taken ?Type levothyroxine 150 mcg tablet 150 mcg PO QDAY 09/30/24 10/13/24 08:00 History lisinopril 10 mg tablet 10 mg PO QDAY 09/30/24 Unkno wn History ergocalciferol (vitamin D2) 1,250 1,250 mcg PO .qd Unknown History mcg (50,000 unit) capsule metformin 500 mg tablet 250 mg PO .qd 10/08/24 Unkno wn History Allergy/AdvReac Type Severity Reaction Status Date / Time No Known Allergies Allergy Verified 10/13/24 12:35 Family History Father Bladder cancer Diabetes Mother Breast cancer Melanoma Grandmother Arthritis Surgical History (Updated 10/08/24 @ 10:46 by Grace Orona) Hx of tubal ligation Hx of colonoscopy with polypectomy H/O thyroidectomy Social History Smoking Status: Never smoker alcohol intake: never substance use type: does not use additional social history: pt denies smoking, denies marijuana use, denies aspirin, uses ibuprofen as needed, uses edibles, pt denies blood clots/disorder Review of Systems (Anesthesia) ROS Narrative System reviewed and no additional complaints, except as documented.
--- NOTE | 2024-10-13 14:00 | PCM.HP.STD ---
HPI - General HPI Narrative The patient is a 64-year-old female presenting with a cyst on the left small finger. The cyst has been present for approximately two to three years and has been slowly growing over this period. There is no associated pain unless the cyst is directly impacted, and there is no history of drainage or numbness. The patient has no history of diabetes or smoking, and she takes thyroid and blood pressure medications. She has a history of thyroidectomy and is currently on thyroid replacement therapy. Attestation: Documentation on this patient encounter was supported using ambient scribe technology/ voice AI technology. The patient consented to recording for the purpose of documenting the encounter. Provider reviewed content of the generated note prior to signature. Current Encounter (DATE OF SURGERY H&P UPDATE): I saw and examined the patient this afternoon in pre-operative holding. We discussed risks and benefits of today's surgery and they would like to proceed. NO CHANGE in health history since last seen and evaluated. Ready to proceed with surgery. [facility] Medical History Wears glasses Marijuana use Non-smoker Hypertension Home Medications ?Medication ?Instructions ?Recorded ?Last Taken ?Type levothyroxine 150 mcg tablet 150 mcg PO QDAY 09/30/24 10/13/24 08:00 History lisinopril 10 mg tablet 10 mg PO QDAY 09/30/24 Unknown History ergocalciferol (vitamin D2) 1,250 1,250 mcg PO .qd 10/08/24 Unknown History mcg (50,000 unit) capsule metformin 500 mg tablet 250 mg PO .qd 10/08/24 Unknown History Allergy/AdvReac Type Severity Reaction Status Date / Time No Known Allergies Allergy Verified 10/13/24 12:35 Family History Father Bladder cancer Diabetes Mother Breast cancer Melanoma Grandmother Arthritis Surgical History Hx of tubal ligation Hx of colonoscopy with polypectomy H/O thyroidectomy Social History Smoking Status: Never smoker alcohol intake: never substance use type: does not use additional social history: pt denies smoking, denies marijuana use, denies aspirin, uses ibuprofen as needed, uses edibles, pt denies blood clots/disorder Vital Signs Vital Signs Vital Signs: 10/13/24 12:35 10/13/24 12:35 10/13/24 13:59 Temperature 98.4 F 98.4 F Temperature Source Temporal Pulse Rate 77 77 Respiratory Rate 18 18 Respiratory Pattern Normal Blood Pressure 131/74 H 131/74 H Blood Pressure Mean 93 Blood Pressure Source Monitor Blood Pressure Position Sitting Blood Pressure Location Right Arm Pulse Ox 96 96 Oxygen Delivery Method Room Air Room Air Weight Weight: 242 lb 4.608 oz Body Mass Index (BMI) 42.9 Physical Exam Narrative Left upper Extremity Inspection: Mass on the left dorsal and ulnar side of the left small finger, approximately 2 x 1-1/2 cm, located on the dorsal ulnar side of the DIP joint. The mass transilluminates, suggesting a ganglion cyst. Palpation: No epitrochlear or left axillary lymphadenopathy. Motor: Able to bend and extend all MP, PIP, and DIP joints, except for about 30 degrees of flexion in the DIP joint of the left small finger due to restriction and flexion secondary to the bulging of the mass. Sensory: Intact to light touch on the radial and ulnar borders. Same sensation between both small fingers. Vascular: Finger tips are warm and well perfused with greater than 2 second capillary refill. Results Imaging XRAY FINGER Well-defined 1.4 x 1.2 cm soft tissue lesion is noted overlying the dorsal/distal aspect of the middle phalanx. No radiographic evidence of an associated significant erosive bone abnormality. No bony mass is identified. Assessment & Plan Assessment/Plan (1) Mucous cyst of digit of left hand: PLAN: Assessment and Plan The patient is a 64-year-old female with a history of thyroidectomy presenting with a cyst on the left small finger. The differential diagnosis includes a mucous cyst, ganglion cyst, or a giant cell tumor of the tendon sheath. The mass is causing restriction in flexion at the DIP joint, and there is no associated pain unless directly impacted. The mass transilluminates, which is consistent with a ganglion cyst, but further evaluation with an x-ray is planned to confirm the diagnosis and assess for any underlying bone spurs. We discussed the differential diagnosis for the mass. Common masses in the hand include ganglion cyst of tendon sheath, giant cell tumor of tendon sheath, and lipoma. All these masses are benign. We also discussed that over 95% of the masses found in the hand and fingers are benign, and not cancerous. 1. Mucous Cyst On The Left Small Finger The plan is to obtain an x-ray of the left small finger to evaluate the cyst further and rule out any underlying bone spurs. Surgical excision of the cyst is an option, with the procedure to be performed in the operating room under local anesthesia and sedation. The patient is advised about the potential for recurrence and the importance of complete excision to minimize this risk. Surgical excision will include debridement of any associated bone spurs to reduce the risk of recurrence. 2. Possible Giant Cell Tumor Of The Tendon Sheath In the case of a giant cell tumor, marginal excision will be performed to ensure complete removal, acknowledging the difficulty of achieving clear margins on a finger. 45% recurrence rate discussed Plan I talked to the patient extensively about the risks of surgery, including bleeding, infection, damage to surrounding structures (terminal slip and collateral ligaments, nailbed), poor scaring, surgical site dehiscence and wound formation, need for wound care, need for repeat operations, failure to obtain the desired result, and the risks of anesthesia. The benefits and alternatives of this surgery were also discussed. All of their questions were answered, and they agreed to proceed with surgery. CPT codes for insurance prior authorization are as follows: 92798, 53032 Plan Details Additional Comments: - Schedule an x-ray of the left small finger as soon as possible. - Arrange for someone to drive you to the outpatient surgery appointment. - Follow up with the surgeon if there are any changes in the size or symptoms of the cyst. INTERVAL H&P PLAN, DATE OF SURGERY: We will proceed with surgery today. Discussed possible rotation flap for closure and possibility of wound complications/infection. She agreed to proceed.
[2024-10-13] MEDS: Cefazolin 2 GM in 0.9% Normal Saline (100mL Bag) 100 ML IV (14:21)
[2024-10-13] MEDS: Lidocaine 1% (20 ml mdv) 20 ML Vial ×2 (14:50→14:53)
--- NOTE | 2024-10-13 15:31 | PCM.POST.ANE ---
Anesthesia: Postop Eval I Current Vital Signs Temperature: 97.4 F Pulse Rate: 86 Blood Pressure: 122/67 Respiratory Rate: 18 Pulse Ox: 96 Oxygen Delivery Method: Room Air Assessment Airway patent: Yes Spontaneous unlabored respirations: Yes Mental status: Awake nausea: No Vomiting: No Anesthesia Complication: No Fluid Hydration Crystalloid volume administer (ml): 800 Total IV fluid infused: 800 Progress Note Anesthesia document: Postop Eval 1 completed: Yes
--- NOTE | 2024-10-13 21:12 | PCM.POSTANE2 ---
Anesthesia Postop Eval I Sum Postop Eval Completion status Anesthesia document: Postop Eval 1 completed: Yes Anesthesia Postop Eval I Summary Anesthesia Postop Eval I Summary: Anesthesia Postop Eval I: Assessment Summary Airway patent Yes 10/13/24 15:32 CREW DIRECTOR.ACAR Spontaneous unlabored Yes 10/13/24 15:32 CREW DIRECTOR.ACAR respirations Mental status Awake 10/13/24 15:32 CREW DIRECTOR.ACAR nausea No 10/13/24 15:32 CREW DIRECTOR.ACAR Vomiting No 10/13/24 15:32 CREW DIRECTOR.ACAR Anesthesia Postop Eval I: Fluid Summary Crystalloid volume administer 800 10/13/24 15:32 CREW DIRECTOR.ACAR (ml) Colloids volume administered ( ml) Blood Product volume administered (ml) Total IV fluid infused 800 10/13/24 15:32 CREW DIRECTOR.ACAR Anesthesia Postop Eval I: Summary Notes Anesthesia Complication No 10/13/24 15:32 CREW DIRECTOR.ACAR Anesthesia Complication Comment: Post-operative progress note Anesthesia: Postop Eval II Evaluation Mental status: Awake and Calm Pain Level: 1 nausea: No Vomiting: No Complications Anesthesia Complication: No
--- NOTE | 2024-10-13 21:12 | POSTOPAN2_ITS ---
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.ACAR Spontaneous unlabored Yes 10/13/24 15:32 [employer] POWER PLANT OPERATOR.ACAR respirations Mental status Awake 10/13/24 15:32 [employer] POWER PLANT OPERATOR.ACAR nausea No 10/13/24 15:32 [employer] POWER PLANT OPERATOR.ACAR Vomiting No 10/13/24 15:32 [employer] POWER PLANT OPERATOR.ACAR Anesthesia Postop Eval I: Fluid Summary Crystalloid volume administer 800 10/13/24 15:32 [employer] POWER PLANT OPERATOR.ACAR (ml) Colloids volume administered ( ml) Blood Product volume administered (ml) Total IV fluid infused 800 10/13/24 15:32 [employer] POWER PLANT OPERATOR.ACAR Anesthesia Postop Eval I: Summary Notes Anesthesia Complication No 10/13/24 15:32 [employer] PLANT OPERATOR.ACAR Anesthesia Complication Comment: Post-operative progress note Anesthesia: Postop Eval II Evaluation Mental status: Awake and Calm Pain Level: 1 nausea: No Vomiting: No Complications Anesthesia Complication: No
--- OUTSIDE RECORDS SUMMARY | 2024-10-13 22:10 | XMS RPT_ITS | CCD ---
Author Organization [facility] Care Team Providers Care Manager Philosophy Name Role Phone Breanna Obrien Primary Care Provider [phone] Santiago Obrienanak Unavailable Unavailable Camille Breanna Unavailable Unavailable Camille Breanna Unavailable Clifford Day [...] Primary Care Unavailable Brady Becker Attending Unavailable Zarrabi, Dr. Carlos Primary Care Unavailable [...] Obrien MD Unavailable Breanna Obrien MD Unavailable [phone] BREANNA OBRIEN Referring Unavailable DANIELA OBRIENK Primary Care Unavailable BRADY BECKER Referring Unavailable [facility] Primary Care Unavailable Camille TONEY, Breanna Primary Care Provider Breanna Obrien MD Unavailable [phone] Elpidio HART, Dr. Nair Primary Care Provider [phone] Dr. Joanie Magallanes DO Referring Provider Dr. Sanjiv Cancino MD Attending Provider BRADY BECKER Attending Unavailable [facility] Primary Care Unavailable [facility] Attending Unavailable [facility] Primary Care Unavailable [facility] Attending Unavailable [facility] Primary Care Unavailable Dr. Breanna Obrien MD Primary Care Provider Dr. Sanjiv Cancino MD Referring Provider [phone] Sanjiv Cancino Attending Unavailable Joanie Magallanes Primary Care Unavailable Joanie Magallanes Referring Unavailable Sanjiv Cancino Attending Unavailable Sanjiv Cancino Referring Unavailable [facility] Primary Care Unavailable Sanjiv Cancino Referring Unavailable [facility] Primary Care Unavailable Sanjiv Cancino Attending Unavailable Dr. Sanjiv Cancino MD Other Provider [phone] Medications Current Medications Medication Drug Class(es) Dates [...] oral solution (1 source) alpha-Adrenergic Agonist, Uncompetitive V-rikhon-F-aspartate Receptor Antagonist, Sigma-1 Agonist Start: 01-05-2021 take 5 mL by mouth four times daily brompheniramine/pseudoephedrine/dextrome thorphan [id number]/5 mL oral syrup ; 5 milliliter(s) orally [...] affect the action of this medication. cholecalciferol 82798 unt oral capsule (15 sources) Vitamin D [...] Start : 20-Apr-2020 End : 15-Jan-2021 Complete doxycycline hyclate 100 mg oral capsule (1 source) Tetracycline-class Drug Start: 10-13-2024 take 1 capsule by mouth twice daily Doxycycline Hyclate 100 mg capsule Active 100 mg PO TWICE A DAY 14 7 0 October 13, 2024 12:00am ergocalciferol 1.25 mg oral capsule (8 sources) Provitamin D2 Compound Start: 10-08-2024 Ergocalciferol (Vitamin D2) 1,250 mcg (50,000 unit) capsule Active 1250 ug PO .qd October 08, 2024 12:00am Start: 09-02-2024 take 1 capsule by [facility] two times weekly ergocalciferol (Vitamin D-2) 1250 mcg (50,000 units) capsule Indications: Vitamin D deficiency Take 1 capsule (50,000 Units) by mouth 2 times a week. 8 capsule 11 09/02/2024 Active Start: 09-02-2024 take 1 capsule by mo uth two times weekly ergocalciferol (Vitamin D-2) 1250 mcg (50,000 units) capsule Indications: Vitamin D deficiency Take 1 capsule (50,000 Units) by mouth 2 times a week. 8 capsule 11 09/02/2024 Active Start: 07-24-2023 End: 09-01-2024 take 1 capsule by mouth two times weekly ergocalciferol (Vitamin D-2) 1.25 MG (92695 UT) capsule Indications: Vitamin D deficiency Take [...] comfot. Quantity: 1 Refills: 3 Ordered: 14-Mar-2021 Choco Samayoa DO Start : 14-Mar-2021 Active ipratropium bromide [...] by mouth once daily. 30 tablet 11 09/29/2024 Active Start: 08-03-2024 End: 09-29-2024 take 1 tablet by mouth once daily levothyroxine (Synthroid, Levoxyl) 150 mcg tablet Indications: Adult hypothyroidism Take 1 tablet (150 mcg) by mouth once daily. 30 tablet 11 09/01/2024 09/29/2024 Discontinued (Reorder) Start: 06-19-2023 End: [...] (20 sources) Angiotensin Converting Enzyme Inhibitor Start: 09-30-2024 take 1 tablet by mouth once daily Lisinopril 10 mg tablet Active 10 mg PO daily September 30, 2024 12:00am Start: 08-30-2024 End: 09-01-2024 take 1 tablet [...] Active metFORMIN hydrochloride 500 mg oral tablet (5 sources) Biguanide Start: 10-08-2024 Metformin 500 mg tablet Active 250 mg PO .qd October 08, 2024 12:00am Start: 09-29-2024 take 1 tablet by yakov th once daily at breakfast metFORMIN (Glucophage) 500 [...] Ordered: 15-Mar-2019 Madiha Murdock Generic Substitution Allowed oxyCODONE hydrochloride 5 mg oral tablet (1 source) Opioid Agonist Start: 10-13-2024 take 1 tablet by mouth once daily as needed for pain Oxycodone 5 mg tablet Active 5 mg PO DAILY as needed for pain 10 5 0 October 13, 2024 Mucous cyst of digit of left hand Ganglion, left hand phenazopyridine hydrochloride 200 mg delayed release oral [...] in limb] Episodic Other connective tissue disease (6 sources) Digital mucous cyst of left hand; Translations: [Ganglion, left hand] 09-30-2024 Episodic Other connective tissue disease (1 source) Ganglion, left hand; Translations: [Ganglion, left hand] Onset: 10-08-2024 Episodic Other lower respiratory disease (2 sources) [...] sources) COUGH/ INCREASED TEMP & SORE THROAT 01-05-2021 Comment on above: COUGH/ INCREASED TEM P [...] Test Name Value Interpretation Reference Range Facility Finger(s) Min 2 Viewson 09-12 Finger(s) Min 2 Views [facility] Imaging Services [address] [place], [place] [address] Finger(s) Min 2 Views MR#: [id number] Acct: [id number] Name: YAYO CHEN Rep #: [id number] : 1960 F 64 From: Shayne low MD PCP: BREANNA OBRIEN Status: REG CLI Study: Finger(s) Min 2 Views Date of Exam: 09/30/24 Exam# [id number] Ordering Dr: Sanjiv Cancino MD PROCEDURE: FINGER(S) MIN 2 VIEWS 09/30/2024 REASON FOR EXAM: CYST 5TH FINGER TECHNIQUE: FINGER(S) MIN 2 VIEWS LEFT 5TH FINGER. COMPARISON: None. FINDINGS: Well-defined 1.4 x 1.2 cm soft tissue lesion is noted overlying the dorsal/distal aspect of the middle phalanx. Mild osteopenia of the visualized bones. Degenerative joint disease. No fracture or dislocation is seen. No lytic or blastic bone lesion is noted. RAD/Finger(s) Min 2 Views IMPRESSION: Well-defined 1.4 x 1.2 cm soft tissue lesion is noted overlying the dorsal/distal aspect of the middle phalanx. No radiographic evidence of an associated significant erosive bone abnormality. No bony mass is identified. Reading Location: [place] [address] CC: Dr. 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 Sanjiv Cancino MD Age/Sex: 64/F Location: [facility] Status: Signed Intake Vital Signs 3 09/30/24 13:28 Height 5 ft 3 in Weight: 243 lb BMI 43.0 BP 132/62 H Blood Pressure Location Rt brachial Position Sitting Respiration 18 Pulse 82 Temp 98.7 F Temp Source Temporal Pulse Oximetry (%) 98 Oxygen Delivery Method room air Intake Visit Reasons: CYST L 5TH FINGER Chief Complaint: cyst left 5th finger Is patient in pain?: No Allergies No Known Allergies Allergy (Unverified 09/30/24 13:29) Medications 3 ???Medication ???Instructions ???Recorded ???Confirmed ???Type levothyroxine 150 mcg tablet 150 mcg PO QDAY 09/30/24 09/30/24 History lisinopril 10 mg tablet 10 mg PO QDAY 09/30/24 09/30/24 Hi story Have you fallen in the past year?: No Nurse's Note: pt referred to practice by [facility] for eval of cyst on left 5th finger [facility] Medical History Hypertension Surgical History H/O thyroidectomy Family History Father Bladder cancer Diabetes Mother Breast cancer Melanoma Grandmother Arthritis Social History Smoking Status: Never smoker alcohol intake: never substance use type: does not use additional social history: pt denies smoking, denies marijuana use, denies aspirin, uses ibuprofen as needed, uses edibles, pt denies blood clots/disorder HPI CYST L 5TH FINGER Details: The patient is a 64-year-old female presenting with a cyst on the left small finger. The cyst has been present for approximately two to three years and has been slowly growing over this period. There is no associated pain unless the cyst is directly impacted, and there is no history of drainage or numbness. The patient has no history of diabetes or smoking, and she takes thyroid and blood pressure medications. She has a history of thyroidectomy and is currently on thyroid replacement therapy. Attestation: Documentation on this patient encounter was supported using ambient scribe technology/ voice AI technology. The patient consented to recording for the purpose of documenting the encounter. Provider reviewed content of the generated note prior to signature. ROS General General: Yes good health; No fatigue, fever(s) or weight loss HENMT HENMT: No rhinitis, sore throat/mouth sore, nasal congestion, contacts or glaucoma Endo Endocrine: No thyroid disease, polydipsia, heat intolerance, cold intolerance, hepatitis or excessive urine Skin Skin: No Bleeding, bruising, changing moles or suspicious lesion Musc Musculoskeletal: No joint pain, joint stiffness, muscle weakness, back pain, osteoarthritis or Muscle aches/ myalgia Neuro Neurological: No headache(s), No lightheadedness and No numbness Cardio Cardiovascular: No chest pain, pacemaker, fatigue or shortness of breat with exertion Psych Psychiatric: No depression, claustrophobia or anxiety Resp Respiratory: No spitting up, shortness of breath, sleep apnea, asthma, emphysema, TB, Cough or Smoker Gastro Gastrointestinal: No diarrhea, constipation, blood in stool, nausea, vomiting or abdominal bloating Barak Hematologic: No anemia, No bleeding and No abnormal bleeding Genitourinary: No urinary frequency, blood in urine or incontinence Exam Details Left upper Extremity Inspection: Mass on the left dorsal and ulnar side of the left small finger, approximately 2 x 1-1/2 cm, located on the dorsal ulnar side of the DIP joint. The mass transilluminates, suggesting a ganglion cyst. Palpation: No epitrochlear or left axillary lymphadenopathy. Motor: Able to bend and extend all MP, PIP, and DIP joints, except for about 30 degrees of flexion in the DIP joint of the left small finger due to restriction and flexion secondary to the bulging of the mass. Sensory: Intact to light touch on the radial and ulnar borders. Same sensation between both small fingers. Vascular: Finger tips are warm and well perfused with greater than 2 second capillary refill. Supplemental Info x RAY Reviewed today It was a soft tissue mass, no calcifications Doesn't appear gouty Coding Level of Care Code Off vis,new,level 3 Diagnoses Mucous cyst of digit of left hand M67.442 Assessment and Plan (No Qualifiers) Assessment and Plan (1) Mucous cyst of digit of left hand: Status: Acute Plan: A (more content not included)... [facility] BI MAMMO BILATERAL SCREENING TOMOSYNTHESISon 04-26-2024 BI MAMMO BILATERAL SCREENING TOMOSYNTHESIS Interpreted By: Ayush Michele, STUDY: BI MAMMO BILATERAL SCREENING TOMOSYNTHESIS; 04/26/2024 9:20 am ACCESSION NUMBER(S): [id number] ORDERING CLINICIAN: BRADY BECKER INDICATION: Screening. COMPARISON: [...] Ayush Michele 04/26/2024 11:50 AM Dictation workstation: [id number] [facility] DBT Breast - bilateralon No mammographic evid ence of malignancy. BI-RADS CATEGORY: BI-RADS Category: 2 Benign. Recommendation: Annual Screening. Recommended Date: 1 Year. Laterality: Bilateral. MACRO: None Signed by: Ayush Michele 04/26/2024 11:50 AM Dictation workstation: [id number] MMODAL Interpreted By: Ayush Lynch, STUDY: BI MAMMO BILATERAL SCREENING TOMOSYNTHESIS; 04/26/2024 9:20 am ACCESSION NUMBER(S): [id number] ORDERING CLINICIAN: BRADY BECKER INDICATION: Screening. COMPARISON: [...] change. This study was interpreted with CAD. [facility] MMODAL Ayush Michele MD - 04/26/2024 Interpreted By: Ayush Michele, STUDY: BI MAMMO BILATERAL SCREENING TOMOSYNTHESIS; 04/26/2024 9:20 am ACCESSION NUMBER(S): [id number] ORDERING CLINICIAN: BRADY BECKER INDICATION: Screening. COMPARISON: [...] Ayush Michele 04/26/2024 11:50 AM Dictation workstation: [id number] [facility] Work Phone: Radiology Study observation (narrative) [facility] Work Phone: DBT Breast - bilateralOrdere d By: Ayush Michele on 04-26-2024 [facility] Work Phone: Cervical AND or Vaginal cyto logy studyon 04-02-2024 Cytology Cervical or vaginal smear or scraping study Pathology report.total SEE COMMENT Gynecologic Cytology Case: [id number] Authorizing Provider: Brady Becker MD Collected: 04/02/2024 0840 Ordering Location: [facility] Received: 04/02/2024 0840 Office Building First [...] Slide(s) initially screened by TOM QUINONES at [address] [address] By the signature on this report, the individual or group listed as making the Final Interpretation/Diagnosis certifies that they have reviewed this case. This specimen has been analyzed by the ThinPrep Imaging System ([employer] an automated imaging and review system, which assists the laboratory in evaluating cells on ThinPrep Pap tests. Following automated imaging, selected jurado from every slide were reviewed by a sisal picker and/or pathologist. Cervical cytology is a screening [...] GENOTYPE QUESTION Yes Menstrual History Post-menopausal Normal [facility] Ambulatory DEXA BONE DENSITYon 07-09-19 24 DEXA BONE DENSITY Interpreted By: Ayush Lynch, STUDY: DEXA BONE DENSITY07/09/2023 7:59 am INDICATION: Signs/Symptoms:screening. The patient is a 63 y/o year old F. COMPARISON: 01/08/2019 ACCESSION NUMBER(S): [id number] ORDERING CLINICIAN: BREANNA OBRIEN TECHNIQUE: DEXA BONE [...] below -2.5 This exam was performed at [facility] on a Nanostellar Dexa Unit. IMPRESSION: DEXA: According to World Health Organization criteria, classification is low bone mass (osteopenia) Followup recommended in two years or sooner as clinically warranted. All images and detailed analysis are available on the Radiology PACS. MACRO: None Signed by: Ayush Michele 07/09/2023 11:21 AM Dictation workstation: [id number] [facility] DXA Skeletal system Views fo r bone densityon 07-09-2023 DEXA: According to W orld Health Organization criteria, classification is low bone mass (osteopenia) Followup recommended in two years or sooner as clinically warranted. All images and detailed analysis are available on the Radiology PACS. MACRO: None Signed by: Ayush Michele 07/09/2023 11:21 AM Dictation workstation: [id number] [facility] Interpreted By: Ayush Lynch, STUDY: DEXA BONE DENSITY07/09/2023 7:59 am INDICATION: Signs/Symptoms:screening. The patient is a 63 y/o year old F. COMPARISON: 01/08/2019 ACCESSION NUMBER(S): [id number] ORDERING CLINICIAN: BREANNA OBRIEN TECHNIQUE: DEXA BONE [...] below -2.5 This exam was performed at [facility] on a Naked Advanced Dexa Unit. [facility] - 07/09/2023 Interpreted By: Ayush Michele, STUDY: DEXA BONE DENSITY07/09/2023 7:59 am INDICATION: Signs/Symptoms:screening. The patient is a 63 y/o year old F. COMPARISON: 01/08/2019 ACCESSION NUMBER(S): [id number] ORDERING CLINICIAN: BREANNA OBRIEN TECHNIQUE: DEXA BONE [...] below -2.5 This exam was performed at [facility] on a Naked Advanced Dexa Unit. IMPRESSION: DEXA: According to World Health Organization criteria, classification is low bone mass (osteopenia) Followup recommended in two years or sooner as clinically warranted. All images and detailed analysis are available on the Radiology PACS. MACRO: None Signed by: Ayush Michele 07/09/2023 11:21 AM Dictation workstation: [id number] [facility] Work Phone: Radiology Study observation (narrative) [facility] Work Phone: DXA Skeletal system Views fo r bone densityOrdered By: Ayush Michele on 07-09-2023 [facility] Work Phone: Colonoscopyon 06-06-2022 Colonoscopy PATIENTNAME Patient Name: Yayo Chen EXAMDATE Procedure Date: 06/06/2022 7:17 AM PATIENTID PATIENTACCOUNTNUM PATIENTDOB Date of : 1960 ADMITTYPE Admit Type: Outpatient PATIENTROOM Site: [facility] Proc RM 1 ETHNICITY Ethnicity: Not or RACE Race: White PROVDR Attending MD: Nadir Negron MD, [id number] ENDOPROCEDURENAME Procedure: Colonoscopy INDICATION Indications: High risk colon cancer surveillance: Personal history of colonic polyps PRIMARYPROVIDER Providers: Nadir Negron MD (Doctor), Ale Wong RN (Nurse), Leigh Smith RN (Nurse) EDREFPROVIDER Referring: Beranna Obrien MD CURRENT_MEDS Medicines: Midazolam 2.5 mg [...] scheduled. CPT_CODES Procedure Code(s): --- Professional --- 89698, Colonoscopy, flexible; diagnostic, including collection of specimen(s) by brushing or washing, when performed (separate procedure) G0500, Moderate sedation services provided by the same physician or other qualified health care professionals performing a gastrointestinal endoscopic service that sedation supports, requiring the presence of an independent trained observer to assist in the monitoring of the patient's level of consciousness and physiological status; initial 15 minutes of intra-service time; patient age 5 years or older (additional time may be reported with 41136, as appropriate) ICD_CODES Diagnosis Code(s): --- Professional --- Z12.11, Encounter for screening for malignant neoplasm of colon Z86.010, Personal history of colonic polyps K57.30, Diverticulosis of large intestine without perforation or abscess without bleeding CODINGSTMT CPT copyright 2020 [employer]. All rights reserved. The codes documented in this report are preliminary and upon legal biller review may be revised to meet current [...] 0 hours 9 minutes 6 seconds Normal [facility] Office Visit (Internal Medic ine)on 05-01-2022 Follow-up [...] hypertension; MARISELA = N; Verified Transmission to [facility]; Last Updated By: [employer]; 05/01/2022 8:41:19 AM Pain in finger Xray [...] Screening; Status:Hold For - Scheduling; Requested for:01May2022; Perform:[facility]; Due:30Jul2022; Last Updated By:Sheila Reed; 05/01/2022 11:22:43 AM;Ordered; Ordered By:Breanna Obrien; Patient competent to provide consent? : [...] (impaired gluco (more content not included)... Normal [employer] Tobacco Screening.on 023 Adult depression screening assessment No [facility] Work Phone: Fall risk assessment a) No falls within the last year [facility] Work Phone: Tobacco use status [facility] b) No [facility] Work Phone: Mamm - Screening Mammogram w / Tomosynthesison 04-12-2022 MG Breast Screening Normal [facility] [place] Work Phone: LMPon 03-26-2022 Last menstrual period start date [facility] Work Phone: Laboratory - Cytologyon 03-14 Cytology report Cyto stain.thin prep Doc (Cvx/Vag) [facility] Work Phone: CLINICAL STUDIES SPECIALIST - Office Visiton 03-14 CLINICAL STUDIES SPECIALIST - Office Visit Diagnoses/Problems Assessed Women's annual routine gynecological examination (.) (Z01.419) Screening for cervical cancer (V76.2) (Z12.4) Orders Mamm - Screening Mammogram w/ Tomosynthesis; Status:Hold For - Scheduling; Requested for:[id number]; Radiologist to Determine Optimal Study : Y What are the patient's signs and symptoms ? 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 Then decrease to 1-3 times weekly to comfot. Levoxyl 150 MCG Oral TabletTake 1 tablet daily Lisinopril 10 MG Oral TabletTAKE 1 TABLET DAILY. Vitamin D 1000 UNIT TABSTAKE 1 TABLET DAILY. Vitals Vital Signs Recorded: [id number] 09:08AM Wpynnttd586 Tdkpoimfr75 Height5 ft 3 in Jzjxgj271.2 kg BMI Exxaslchdy30.3 kg/m2 BSA Calculated2.04 LMPMENO Physical Exam PHYSICAL [...] Clear bilaterally (more content not included)... Normal [facility] Mamm - Screening Mammogram w / Tomosynthesison 04-02-2021 MG Breast Screening Normal [facility] Work Phone: Tobacco Screening.on 021 Fall risk assessment a) No falls within the last year [employer] Work Phone: Tobacco use status [facility] b) No [facility] Work Phone: No Panel Informationon 03-21 Normal [facility] Work Phone: LMPon 03-14-2021 Last menstrual period start date MENOPAUSE [facility] Work Phone: Tobacco Screening.on 021 Fall risk assessment a) No falls within the last year [facility] Work Phone: Tobacco use status [facility] b) No [facility] Work Phone: Tobacco Screening.on 021 Fall risk assessment a) No falls within the last year [facility] Work Phone: Tobacco use status [facility] b) No [facility] Work Phone: Tobacco Screening.on 021 Fall risk assessment a) No falls within the last year [facility] Work Phone: Tobacco use status [facility] b) No [facility] Work Phone: Coronavirus 2019 RNA by PCR, Symptomaticon 01-05-2021 Date and time of symptom onset 20210102 1 [facility] Work Phone: Coronavirus 2019 RNA by PCR, Symptomatic Detected Abnormal See Below [facility] Work Phone: Comment on above: SOURCE: Nasal, [...] make patient management decisions.Fact sheet for providers: https://www.fda.gov/media/704419/downloadFact sheet for patients: https://www.fda.gov/media/339975/downloadThis test has received FDA Emergency Use Authorization (EUA) and has been verified by [facility] ([facility]). This test is only authorized for the duration of time that circumstances exist to justify the authorization of the emergency use of in vitro diagnostic tests for the detection of SARS-CoV-2 virus and/or diagnosis of COVID-19 infection under section 564(b)(1) of the Act, 21 U.S.C. 360bbb-3(b)(1), unless the authorization is terminated or revoked sooner. [facility] is certified under CLIA-88 as qualified to perform high complexity testing. Testing is performed in the [facility] laboratories located at [address] [place] [address]. Mamm - Screening Mammogram w / Tomosynthesison 03-17-2020 MG Breast screening Interpreted by: AYUSH MICHELE03/17/20 09:17MRN: [id number] Name: YAYO CHEN STUDY:Digital mammography screening with [...] by: AYUSH MICHELE 03/17/20 09:17 Normal [facility] [place] Work Phone: BD Bone Density DEXAon 01-08 BD Bone Density DEXA Exam Date/Time: 01/08/2019 08:18 EDT Reason for Exam: POST MENOPAUSAL;Post menopausal Report STUDY: BD Bone Density DEXA; 01/08/2019 8:18 am INDICATION: Post menopausal. Evaluate for osteopenia/osteoporosis, COMPARISON: None. ACCESSION NUMBER(S): [id number] ORDERING CLINICIAN: Breanna Obrien FINDINGS: Standard measurements [...] Signed by: Enoch Minor DO Technologist: DEWAYNE [facility] IGP W/hpv [id number] [id number] 10-30 Diagnosis: See Ref Lab Report [facility] Comment on above: Performed By: #### 1 [id number] #### ZONIA Send Outs [place] [id number] [place] Mamm Screen w/CAD if perf ormed bilaton 10-22-2018 [place] Mamm Screen w/CAD if performed bilat Exam Date/Time: 10/22/2018 07:51 EDT Reason for Exam: SCREENING;Screening Report STUDY: [place] Mamm Screen w/CAD if performed bilat; 10/22/2018 7:51 am ACCESSION NUMBER(S): [id number] ORDERING CLINICIAN: Suma Ritchie INDICATION: Screening. COMPARISON: 03/25/2016, 02/08/2015 FINDINGS: The breast tissue is almost entirely fatty. No suspicious masses or calcifications are identified. CAD is utilized. IMPRESSION: No mammographic evidence of malignancy. BI-RADS CATEGORY: Category: 2 - Benign Finding. Recommendation: Normal Interval Follow-up, Over Age 40. Recall Interval: 12 Months. Breast Density: Fatty. For any future breast imaging appointments, please call [phone]). FINAL REPORT Dictated: 10/22/2018 9:18 am Dakota Dubois MD Signed (Electronic Signature): 10/22/2018 9:18 am Signed by: Dakota Dubois MD Technologist: DEWAYNE Assessment: BI-RADS Category 2-Benign finding Recommendation: Normal interval follow-up Normal [facility]on 10-06-2018 [place] [facility] [id number] Date of Procedure: 10/06/2018 Pathologist: DEANA HARDIN Date Reported: 10/26/2018 Date Received: 10/08/2018 Submitting Physician: SUMA RITCHIE MD FINAL CYTOLOGICAL INTERPRETATION A. THINPREP PAP Cervical / Endocervical Reflex - Ascus only: Specimen adequacy: SATISFACTORY FOR EVALUATION. Quality Indicator: Endocervical/transformation zone component is present. General Categorization: NEGATIVE FOR INTRAEPITHELIAL LESION OR MALIGNANCY. Electronically Signed Out By [facility], Cytology//MXG By the signature on this report, [...] / Endocervical Reflex - Ascus only Normal [facility] Vital Signs Date Time Vital Sign Value Performing Clinician Facility 10-13-2024 15:45-0400 Body temperature 96.5 [degF] Dr. Joanie Magallanes DO Work Phone: [facility] 10-13-2024 15:45-0400 Diastolic blood pressure 70 mm[Hg] Dr. Joanie Magallanes DO Work Phone: [facility] 10-13-2024 15:45-0400 Heart rate 73 /min Dr. Joanie Magallanes DO Work Phone: [facility] 10-13-2024 15:45-0400 Respiratory rate 16 /min Dr. Joanie Magallanes DO Work Phone: [facility] 10-13-2024 15:45-0400 SaO2% (BldA) [Mass fraction] 100 % Dr. Joanie Magallanes DO Work Phone: [facility] 10-13-2024 15:45-0400 Systolic blood pressure 123 mm[Hg] Dr. Joanie Magallanes DO Work Phone: [facility] 10-13-2024 12:35-0400 Body height 160.[address] Joanie Magallanes DO Work Phone: [facility] 10-13-2024 12:35-0400 Body mass index (BMI) [Ratio] 42.9 kg/m2 Dr. Joanie Magallanes DO Work Phone: [facility] 10-13-2024 12:35-0400 Body weight 109.[address] Joanie Magallanes DO Work Phone: [facility] 09-30-2024 13:28-0400 Body height 160.[address] Joanie Magallanes DO Work Phone: [facility] 09-30-2024 13:28-0400 Body mass index (BMI) [Ratio] 43 kg/m2 Dr. Joanie Magallanes DO Work Phone: [facility] 09-30-2024 13:28-0400 Body temperature 98.7 [degF] Dr. Joanie Magallanes DO Work Phone: [facility] 09-30-2024 13:28-0400 Body weight 110.[address] Joanie Magallanes DO Work Phone: [facility] 09-30-2024 13:28-0400 Diastolic blood pressure 62 mm[Hg] Dr. Joanie Magallanes DO Work Phone: [facility] 09-30-2024 13:28-0400 Heart rate 82 /min Dr. Joanie Magallanes DO Work Phone: [facility] 09-30-2024 13:28-0400 Respiratory rate 18 /min Dr. Joanie Magallanes DO Work Phone: [facility] 09-30-2024 13:28-0400 SaO2% (BldA) [Mass fraction] 98 % Dr. Joanie Magallanes DO Work Phone: [facility] 09-30-2024 13:28-0400 Systolic blood pressure 132 mm[Hg] Dr. Joanie Magallanes DO Work Phone: [facility] 09-29-2024 10:44-0400 Body height 160 cm Breanna Obrien MD Work Phone: [facility] 09-29-2024 10:44-0400 Body mass index (BMI) [Ratio] 43.05 kg/m2 Breanna Obrien MD Work Phone: [facility] 09-29-2024 10:44-0400 Body weight 110.22 kg Breanna Obrien MD Work Phone: [facility] 09-29-2024 10:44-0400 Diastolic blood pressure 76 mm[Hg] Breanna Obrien MD Work Phone: 8(451)518-159741 [place] [address] 09-29-2024 10:44-0400 Heart rate 69 /min Breanna Obrien MD Work Phone: 6(427)981-988245 [address] 09-29-2024 10:44-0400 Systolic blood pressure 127 mm[Hg] Breanna Obrien MD Work Phone: 4(842)871-233641 [place] [address] 09-01-2024 09:19-0400 Body height 160 cm Breanna Obrien MD Work Phone: 4(201)536-301445 [address] 09-01-2024 09:19-0400 Body mass index (BMI) [Ratio] 42.87 kg/m2 Breanna Obrien MD Work Phone: 1(558)617-576045 [address] 09-01-2024 09:19-0400 Body weight 109.77 kg Breanna Obrien MD Work Phone: 5(455)904-061545 [address] 09-01-2024 09:19-0400 Diastolic blood pressure 80 mm[Hg] Breanna Obrien MD Work Phone: 1(233)104-191451 [place] [address] 09-01-2024 09:19-0400 Heart rate 71 /min Breanna Obrien MD Work Phone: 7(169)315-354245 [address] 09-01-2024 09:19-0400 Systolic blood pressure 134 mm[Hg] Breanna Obrien MD Work Phone: 5(615)549-696341 [place] [address] 04-26-2024 09:21-0500 Body height 160 cm [facility] 04-26-2024 09:21-0500 Body mass index (BMI) [Ratio] 40.08 kg/m2 [facility] 04-26-2024 09:21-0500 Body weight 102.6 kg [facility] 04-02-2024 08:39-0500 Body height 160 cm Brady Becker MD Work Phone: [facility] 04-02-2024 08:39-0500 Body mass index (BMI) [Ratio] 40.07 kg/m2 Brady Becker MD Work Phone: [facility] 04-02-2024 08:39-0500 Body weight 102.6 kg Brady Becker MD Work Phone: [facility] 04-02-2024 08:39-0500 Diastolic blood pressure 70 mm[Hg] Brady Becker MD Work Phone: [facility] 04-02-2024 08:39-0500 Systolic blood pressure 118 mm[Hg] Brady Becker MD Work Phone: [facility] 07-23-2023 08:29-0400 Body height 160 cm Breanna Obrien MD Work Phone: [facility] 07-23-2023 08:29-0400 Body mass index (BMI) [Ratio] 40.74 kg/m2 Breanna Obrien MD Work Phone: [facility] 07-23-2023 08:29-0400 Body weight 104.33 kg Breanna Obrien MD Work Phone: [facility] 07-23-2023 08:29-0400 Diastolic blood pressure 72 mm[Hg] Breanna Obrien MD Work Phone: [facility] 07-23-2023 08:29-0400 Heart rate 75 /min Breanna Obrien MD Work Phone: [facility] 07-23-2023 08:29-0400 Systolic blood pressure 124 mm[Hg] Breanna Obrien MD Work Phone: [facility] 07-02-2023 08:38-0400 Body height 160 cm Breanna Obrien MD Work Phone: [facility] 07-02-2023 08:38-0400 Body mass index (BMI) [Ratio] 41.1 kg/m2 Breanna Obrien MD Work Phone: [facility] 07-02-2023 08:38-0400 Body weight 105.23 kg Breanna Obrien MD Work Phone: [facility] 07-02-2023 08:38-0400 Diastolic blood pressure 80 mm[Hg] Breanna Obrien MD Work Phone: [facility] 07-02-2023 08:38-0400 Heart rate 64 /min Breanna Obrien MD Work Phone: [facility] 07-02-2023 08:38-0400 Systolic blood pressure 120 mm[Hg] Breanna Obrien MD Work Phone: [facility] 03-31-2023 08:36-0500 Body height 160 cm Brady Becker MD Work Phone: [facility] 03-31-2023 08:36-0500 Body mass index (BMI) [Ratio] 40.81 kg/m2 Brady Becker MD Work Phone: [facility] 03-31-2023 08:36-0500 Body weight 104.51 kg Brady Becker MD Work Phone: [facility] 03-31-2023 08:36-0500 Diastolic blood pressure 72 mm[Hg] Brady Becker MD Work Phone: [facility] 03-31-2023 08:36-0500 Systolic blood pressure 112 mm[Hg] Brady Becker MD Work Phone: [facility] 05-01-2022 08:08-0500 Body height 160.02 cm Breanna Obrien Work Phone: [facility] Work Phone: 05-01-2022 08:08-0500 Body mass index (BMI) [Ratio] 40.39 kg/m2 Breanna Obrien Work Phone: [facility] Work Phone: 05-01-2022 08:08-0500 Body surface area Derived from formula 2.04 m2 Breanna Obrien Work Phone: [facility] Work Phone: 05-01-2022 08:08-0500 Body weight 103.42 kg Breanna Obrien Work Phone: [facility] Work Phone: 05-01-2022 08:08-0500 Diastolic blood pressure 76 mm[Hg] Breanna Obrien Work Phone: [facility] Work Phone: 05-01-2022 08:08-0500 Heart rate 72 /min Breanna Obrien Work Phone: [facility] Work Phone: 05-01-2022 08:08-0500 SaO2% (BldA) [Mass fraction] 95 % Breanna Obrien Work Phone: [facility] Work Phone: 05-01-2022 08:08-0500 Systolic blood pressure 112 mm[Hg] Breanna Obrien Work Phone: [facility] Work Phone: 03-26-2022 09:08-0500 Body height 160.02 cm Breanna Obrien Work Phone: [place] [address] [address] Work Phone: 03-26-2022 09:08-0500 Body mass index (BMI) [Ratio] 40.3 kg/m2 Breanna JacobsenQiandao Work Phone: [place] [address] [address] Work Phone: 03-26-2022 09:08-0500 Body surface area Derived from formula 2.04 m2 Breanna Obrien Work Phone: [address] Work Phone: 03-26-2022 09:08-0500 Body weight 103.2 kg Breanna Jacobsenabi Work Phone: [place] [address] [address] Work Phone: 03-26-2022 09:08-0500 Diastolic blood pressure 80 mm[Hg] Breanna Zarrabi Work Phone: [place] [address] [address] Work Phone: 03-26-2022 09:08-0500 Systolic blood pressure 126 mm[Hg] Breanna Zarrabi Work Phone: [place] [address] [address] Work Phone: 03-28-2021 13:29-0500 Body height 160.02 cm Breanna [employer] Work Phone: [place] [address] [address] Work Phone: 03-28-2021 13:29-0500 Body mass index (BMI) [Ratio] 40.21 kg/m2 Breanna [employer] Work Phone: [place] [address] [address] Work Phone: 03-28-2021 13:29-0500 Body surface area Derived from formula 2.04 m2 Breanna [employer] Work Phone: [place] [address] [address] Work Phone: 03-28-2021 13:29-0500 Body weight 102.97 kg Breanna Jacobsenabi Work Phone: [place] [address] [address] Work Phone: 03-28-2021 13:29-0500 Diastolic blood pressure 80 mm[Hg] Breanna Zarrabi Work Phone: [place] [address] [address] Work Phone: 03-28-2021 13:29-0500 Heart rate 80 /min [employer] Work Phone: [address] Work Phone: 03-28-2021 13:29-0500 Systolic blood pressure 122 mm[Hg] Breanna Kraftrrabi Work Phone: [address] Work Phone: 03-14-2021 15:46-0500 Body height 160.02 cm Breanna Kraftrrabi Work Phone: [facility] Work Phone: 03-14-2021 15:46-0500 Body mass index (BMI) [Ratio] 40.3 kg/m2 Breanna Jacbosenabi Work Phone: [facility] Work Phone: 03-14-2021 15:46-0500 Body surface area Derived from formula 2.04 m2 Breanna Jacobsenabi Work Phone: [facility] Work Phone: 03-14-2021 15:46-0500 Body temperature 96.8 [degF] Breanna Jacobsenabi Work Phone: [facility] Work Phone: 03-14-2021 15:46-0500 Body weight 103.2 kg Breanna Kraftrrabi Work Phone: [facility] Work Phone: 03-14-2021 15:46-0500 Diastolic blood pressure 78 mm[Hg] Breanna Zarrabi Work Phone: [facility] Work Phone: 03-14-2021 15:46-0500 Systolic blood pressure 130 mm[Hg] Breanna Zarrabi Work Phone: [facility] Work Phone: 03-14-2021 13:51-0500 Body height 160.02 cm Breanna Zarrabi Work Phone: [facility] Work Phone: 03-14-2021 13:51-0500 Body mass index (BMI) [Ratio] 40.03 kg/m2 Breanna Jacobsenabi Work Phone: [facility] Work Phone: 03-14-2021 13:51-0500 Body surface area Derived from formula 2.04 m2 Breanna Jacobsenabi Work Phone: [facility] Work Phone: 03-14-2021 13:51-0500 Body weight 102.51 kg Breanna Obrien Work Phone: [facility] Work Phone: 03-14-2021 13:51-0500 Diastolic blood pressure 72 mm[Hg] Breanna Jacobsenabi Work Phone: [facility] Work Phone: 03-14-2021 13:51-0500 Heart rate 66 /min Breanna Obrien Work Phone: [facility] Work Phone: 03-14-2021 13:51-0500 Systolic blood pressure 122 mm[Hg] Breanna Jacobsenabi Work Phone: [facility] Work Phone: 02-05-2021 08:03-0400 Body height 160.02 cm Breanna Jacobsenabi Work Phone: [facility] Work Phone: 02-05-2021 08:03-0400 Body mass index (BMI) [Ratio] 39.86 kg/m2 Breanna Jacobsenabi Work Phone: [facility] Work Phone: 02-05-2021 08:03-0400 Body surface area Derived from formula 2.03 m2 Breanna Jacobsenabi Work Phone: [facility] Work Phone: 02-05-2021 08:03-0400 Body weight 102.06 kg Breanna Kraftrrabi Work Phone: [facility] Work Phone: 02-05-2021 08:03-0400 Diastolic blood pressure 78 mm[Hg] Breanna Zarrabi Work Phone: [facility] Work Phone: 02-05-2021 08:03-0400 Heart rate 71 /min Breanna Zarrabi Work Phone: [facility] Work Phone: 02-05-2021 08:03-0400 SaO2% (BldA) [Mass fraction] 97 % Breanna Zarrabi Work Phone: [facility] Work Phone: 02-05-2021 08:03-0400 Systolic blood pressure 112 mm[Hg] Breanna Zarrabi Work Phone: [facility] Work Phone: 01-05-2021 12:43-0400 Body height 160 cm Breanna Kraftrrabi Other Phone: [facility] 01-05-2021 12:43-0400 Body temperature 98.24 [degF] Breanna Abenarrabi Other Phone: [facility] 01-05-2021 12:43-0400 Diastolic blood pressure 83 mm[Hg] Breanna Zarrabi Other Phone: [facility] 01-05-2021 12:43-0400 Heart rate 91 /min Breanna Zarrabi Other Phone: [facility] 01-05-2021 12:43-0400 SaO2% (BldA) [Mass fraction] 95 % Breanna Zarrabi Other Phone: [facility] 01-05-2021 12:43-0400 Systolic blood pressure 138 mm[Hg] Breanna Obrien Other Phone: [facility] 2020 16:49-0500 BMI (Body Mass Index) 40.73 kg/m2 Breanna [address]o [address] Work Phone: 2020 16:49-0500 Body Temperature 96.9 [degF] Breanna [address] Work Phone: Comment on above: Method: Temporal 2020 16:49-0500 Body weight 104.3 kg Breanna Whyte-Sylan german [address] Work Phone: 2020 16:49-0500 BP Diastolic 78 mm[Hg] Breanna Pendletonlan d [address] Work Phone: Comment on above: Location: LUE; Position: Sitting 2020 16:49-0500 BP Systolic 120 mm[Hg] Breanna Whyte-Ashlan g[address] Work Phone: Comment on above: Location: LUE; Position: Sitting 2020 16:49-0500 BSA (Body Surface Area) 2.05 m2 Breanna [place] [address] Work Phone: 2020 16:49-0500 Height 160.02 cm Breanna Whyte-Ashlan d [address] Work Phone: 2020 14:02-0500 BMI (Body Mass Index) 40.21 kg/m2 Breanna Whyte-[place] [address] Work Phone: 2020 14:02-0500 Body weight 102.96 kg Breanna Whyte-Sylan d [address] Work Phone: 2020 14:02-0500 BP Diastolic 80 mm[Hg] Breanna Hernandez d [address] Work Phone: 2020 14:02-0500 BP Systolic 122 mm[Hg] Breanna FletcherAshlan d [address] Work Phone: 2020 14:02-0500 BSA (Body Surface Area) 2.04 m2 Breanna Pendletonland [address] Work Phone: 2020 14:02-0500 Height 160.02 cm Breanna holman [address] Work Phone: 2020 14:02-0500 Pulse (Heart Rate) 72 /min Breanna ospina [address] Work Phone: 01-18-2019 18:40-0400 BMI (Body Mass Index) 37.98 kg/m2 [facility] [employer] 01-18-2019 18:40-0400 Body Temperature 98.29 [degF] [facility] 01-18-2019 18:40-0400 Body weight 97.25 kg [facility] [employer] 01-18-2019 18:40-0400 BP Diastolic 70 mm[Hg] [facility] 01-18-2019 18:40-0400 BP Systolic 124 mm[Hg] [facility] [employer] 01-18-2019 18:40-0400 Height 160 cm [facility] [employer] 01-18-2019 18:40-0400 Pulse (Heart Rate) 72 /min [facility] 01-18-2019 18:40-0400 Pulse Oximetry 96 % [facility] 01-18-2019 18:40-0400 Respiratory Rate 16 /min [facility] [employer] Encounters Encounter Date Encounter Type Care Provider Facility Start: 10-13-2024 Non-patient / Non-visit Dr. Sanjiv mendoza MD -[facility] Start: 10-13-2024 ambulatory Sanjiv Cancino Facility:[facility] Start: 10-13-2024 End: 10-13-2024 Admission to same day surgery center Dr. Sanjiv Cancino [facility] Start: 10-13-2024 End: 10-13-[address] Joanie Magallanes DO Work Phone: [facility] Start: 09-30-2024 End: 09-30-[address] Sanjiv Cancino MD -[facility] Work Phone: Start: 09-30-2024 End: 09-30-[address] Joanie Magallanes DO Work Phone: [facility] Work Phone: Start: 09-29-2024 End: 09-29-2024 Assay of hemosiderin, quant Breanna Obrien MD Work Phone: [facility] Work Phone: Start: 09-29-2024 End: 09-29-2024 Patient encounter procedure Breanna Obrien MD Work Phone: [facility] Comment on above: Routine general medi marilu examination at health care facility (Primary Dx); Impaired fasting glucose; Adult hypothyroidism; Hypercholesteremia; Hypertriglyceridemia; Benign essential HTN; Fatigue, unspecified type Start: 09-29-2024 End: 09-30-2024 ambulatory [facility] Start: 09-29-2024 End: 09-29-2024 Encounter for general adult medical examination without abnormal findings [facility] Start: 09-01-2024 End: 09-01-2024 Office outpatient visit 25 minutes Breanna Obrien MD Work Phone: [facility] Comment on above: Chronic fatigue (Chelo cesilia Dx); Vitamin D deficiency; Adult hypothyroidism; Benign essential HTN; Impaired fasting glucose; Anxiety; Morbid obesity with BMI of 40.0-44.9, adult (Multi) Start: 09-01-2024 End: 09-01-2024 ambulatory [facility] Start: 04-26-2024 End: 04-26-2024 ambulatory [facility] Start: 04-26-2024 End: 04-26-2024 Subsequent hospital visit by physician Christian Kim Mammo [facility] Comment on above: Encounter for screen ing mammogram for malignant neoplasm of breast Start: 04-02-2024 End: 04-02-2024 Patient encounter status Brady Becker MD Work Phone: [facility] Work Phone: Start: 04-02-2024 End: 04-02-2024 Periodic preventive med est patient 65yrs& older Brady Becker MD Work Phone: [facility] Comment on above: Encounter for screen ing mammogram for malignant neoplasm of breast; Encounter for gynecological examination without abnormal finding; Encounter for screening for cervical cancer Start: 04-02-2024 End: 04-02-2024 ambulatory [facility] Start: 04-02-2024 End: 04-02-2024 Encounter for gynecological examination (general) (routine) without abnormal findings [facility] Start: 07-23-2023 End: 07-23-2023 Office outpatient visit 15 minutes Breanna Obrien MD Work Phone: [facility] Comment on above: Vitamin D deficiency (Primary Dx); Benign essential HTN; Adult hypothyroidism; Osteopenia, unspecified location; Total bilirubin, elevated; Glucose intolerance (impaired glucose tolerance) Start: 07-09-2023 End: 07-09-2023 Subsequent hospital visit by physician Christian Kim Dxa [facility] Comment on above: Post-menopausal Start: 07-09-2023 End: 07-09-2023 ambulatory [facility] Start: 07-02-2023 End: 07-02-2023 Office outpatient visit 25 minutes Breanna Obrien MD Work Phone: [facility] Comment on above: Vitamin D deficiency (Primary Dx); Lipid screening; Secondary hypertension; Adult hypothyroidism; Glucose intolerance (impaired glucose tolerance); Benign essential hypertension; Borderline hyperlipidemia; Hypocalcemia; Fatigue, unspecified type; Post-menopausal Start: 03-31-2023 End: 03-31-2023 Patient encounter status Brady Becker MD Work Phone: [facility] Start: 03-31-2023 End: 03-31-2023 Periodic preventive med est patient 40-64yrs Brady Becker MD Work Phone: [facility] Comment on above: Encounter for gyneco logical examination without abnormal finding; Encounter for screening for cervical cancer; Encounter for screening mammogram for breast cancer Start: 06-06-2022 End: 06-06-2022 ambulatory MD NADIR NEGRON Facility:[id number] Start: 05-15-[address] Breanna Obrien Fac ility:[id number] Start: 05-01-2022 Office outpatient vi sit 25 minutes Breanna Obrien Work Phone: [facility] Work Phone: Start: 05-01-[address] Breanna Obrien Fac ility:[id number] Start: 04-24-2022 AUDIT Breanna Linn i Work Phone: [facility] Work Phone: Start: 04-17-2022 FUV, Provider: Breanna Obrien, Status: Pen, Time: 1:45 PM Breanna Obrien Work Phone: [address] Work Phone: Start: 04-16-2022 Chart Update Breanna Linn i Work Phone: [address] Work Phone: Start: 04-12-2022 ambulatory Brady Becker Facility :[id number] Start: 04-09-2022 AUDIT Breanna Linn i Work Phone: [facility] Work Phone: Start: 04-06-2022 Chart Update Breanna Linn i Work Phone: [address] Work Phone: Start: 03-26-2022 Encounter for gynecological examination (general) (routine) without abnormal findings Brady Becker [facility] Start: 03-26-2022 Encounter for gynecological examination (general) (routine) without abnormal findings Brady Becker Facility:[facility] Start: 03-26-2022 Periodic preventive med est patient 40-64yrs Breanna Zarrabi Work Phone: [facility] [address] Work Phone: Start: 03-26-2022 ambulatory Brady Becker Facility:[facility] Start: 04-02-2021 Chart Update Breanna Zarrab i Work Phone: [facility] [address] Work Phone: Start: 03-22-2021 Chart Update Breanna Zarrab i Work Phone: [facility] Work Phone: Start: 03-14-2021 Office outpatient vi sit 25 minutes Breanna Zarrabi Work Phone: [facility] Work Phone: Start: 02-05-2021 Office outpatient vi sit 25 minutes Breanna Zarrabi Work Phone: [facility] Work Phone: Start: 01-15-2021 Office outpatient vi sit 25 minutes Breanna Zarrabi Work Phone: [facility] Work Phone: Start: 01-05-2021 End: 01-05-2021 Emergency department patient visit Clifford Rodriguezdrine Tyler [facility] Start: 2020 Patient encounter procedure Breanna Delmarabi [facility] [address] Work Phone: Start: 2020 Patient encounter procedure Breanna Abenarrabi [facility] [address] Work Phone: Start: 04-20-2019 Patient encounter procedure Breanna Delmarabi [facility] [address] Work Phone: Start: 01-18-2019 End: 01-18-2019 Office outpatient new 30 minutes Isha Curtis Work Phone: [facility] [place] Comment on above: Herpes zoster withou t complication (Primary Dx) Start: 10-06-2018 Manual pelvic examination Yun Obrien Work Phone: [facility] Work Phone: Comment on above: WNL; 10/06/2018; NIL; 04/09/2022 NIL 019; NIL; Patient encounter procedure Breanna Obrien Work Phone: [facility] Work Phone: Procedures Date Procedure Procedure Detail Performing Clinician Start: 10-13-2024 Release of trigger finger Dr. Joanie Magallanes DO Work Phone: Start: 09-30-2024 Plain X-ray of finger German Magallanes DO Work Phone: Start: 08-26-2024 Lipid 1996 panel - S [...] louise Work Phone: Start: 04-14-2007 Endometrial ablation Fa mati Obrien Work Phone: Start: 01-12-1983 Ligation of fallopian tube Breanna Obrien Work Phone: Colonoscopy Breanna Obrien Endometrial ablation Breanna Obrien Comment on above: Completed: 2007 End: 01-12-1983 Ligation of fallopian tube Breanna Moser bi End: 08-12-2009 Thyroidectomy Breanna Obrien Plan of Treatment Date Care Activity Detail Author Start: 06-06-2032 Screening for malignant neoplasm of colon [facility] Start: 08-26-2029 Lipid panel Lipid Panel [facility] Start: 04-02-2027 Screening for malignant neoplasm of cervix [facility] Start: 03-31-2026 Screening for malignant neoplasm of cervix [facility] Start: 10-03-2025 End: 10-03-2025 Patient encounter procedure 10/03/2025 10:30 AM EDT Office Visit [facility] [address] [place] [phone] Breanna Obrien MD [address] [place] [address] [facility] Start: 09-30-2025 Medicare Annual Wellness Visit Medicare Annual Wellness Visit (AWV) [facility] Start: 08-26-2025 Diabetes mellitus screening Diabetes Screening [facility] Start: 04-26-2025 Screening for malignant neoplasm of breast Mammogram [facility] Start: 04-05-2025 End: 04-05-2025 Patient encounter procedure [facility] Start: 03-26-2025 Screening for malignant neoplasm of cervix [facility] Start: 12-30-2024 End: 12-30-2024 Patient encounter procedure 12/30/2024 10:30 AM EDT Office Visit [facility] [address] [place] [phone] Breanna Obrien MD [address] [address] [facility] Start: 12-13-2024 Influenza vaccination Influenz a Vaccine (Season Ended) [facility] Start: 10-13-2024 Patient discharge [facility] Start: 09-29-2024 End: 09-29-2025 Lipid 1996 panel - Serum or Plasma Lipid Panel Lab Routine Hypercholesteremia Hypertriglyceridemia Expected: 09/29/2024 (Approximate), Expires: 09/29/2025 [facility] Service Area Work Phone: Comment on above: Expected: 09/29/2024 (Approximate), Expires: 09/29/2025 Start: 09-22-2024 End: 09-22-2024 Patient encounter procedure 09/22/2024 8:45 AM EDT Office Visit [facility] [address] [place] [address] Breanna Obrien MD [address] [place], [place] [address] [facility] Start: 09-01-2024 End: 09-01-2025 CBC W Auto Differential panel - Blood CBC and Auto Differential Lab Routine Chronic fatigue Expected: 09/01/2024 (Approximate), Expires: 09/01/2025 [facility] Area Work Phone: Comment on above: Expected: 09/01/2024 (Approximate), Expires: 09/01/2025 Start: 09-01-2024 End: 09-01-2025 Magnesium [Mass/volume] in Serum or Plasma Magnesium Lab Routine Chronic fatigue Expected: 09/01/2024 (Approximate), Expires: 09/01/2025 [facility] Work Phone: Comment on above: Expected: 09/01/2024 (Approximate), Expires: 09/01/2025 Start: 09-01-2024 End: 09-01-2025 Zinc [Mass/volume] in Serum or Plasma Zinc Lab Routine Chronic fatigue Expected: 09/01/2024 (Approximate), Expires: 09/01/2025 [facility] Work Phone: Comment on above: Expected: 09/01/2024 (Approximate), Expires: 09/01/2025 Start: 04-24-2024 Screening for malignant neoplasm of breast Mammogram [facility] Start: 04-02-2024 End: 04-02-2025 Cytology Cervical or vaginal smear or scraping study [facility] Work Phone: Comment on above: Expected: 04/02/2024 (Approximate), Expires: 04/02/2025 Start: 04-02-2024 End: 05-03-2025 DBT Breast - bilateral BI mammo bilateral screening tomosynthesis Imaging Routine Encounter for screening mammogram for malignant neoplasm of breast Expected: 04/02/2024, Expires: 05/03/2025 [facility] Service Area Work Phone: Comment on above: Expected: 04/02/2024 , Expires: 05/03/2025 Start: 04-02-2024 End: 04-02-2024 Patient encounter procedure 04/02/2024 8:30 AM EST Office Visit [facility] [address] [place] [phone] Brady Becker MD [address] [facility] [address] [place] [address] [facility] Start: 04-01-2024 Yearly Adult Physical Yearly Adult P hysical [facility] Start: 2024 Pneumococcal Vaccine : 65+ Years (1 - PCV) Pneumococcal Vaccine: 65+ Years (1 - PCV) [facility] Start: 2024 Pneumococcal Vaccine : 65+ Years (1 of 1 - PCV) Pneumococcal Vaccine: 65+ Years (1 of 1 - PCV) [facility] Start: 12-14-2023 COVID-19 Vaccine ( season) COVID-19 Vaccine () [facility] Start: 12-14-2023 Influenza vaccination [facility] Start: 11-20-2023 End: 11-20-2023 Patient encounter procedure 11/20/2023 8:00 AM EDT Office Visit [facility] [address] [place] [phone] Breanna Obrien MD [address] [place] [address] [facility] Start: 07-23-2023 End: 07-22-2024 25-hydroxyvitamin D3 [Mass/volume] in Serum or Plasma Vitamin D 25-Hydroxy,Total (for eval of Vitamin D levels) Lab Routine Vitamin D deficiency Expected: 07/23/2023 (Approximate), Expires: 07/22/2024 [facility] Work Phone: Comment on above: Expected: 07/23/2023 (Approximate), Expires: 07/22/2024 Start: 07-23-2023 End: 07-22-2024 Comprehensive metabolic 2000 panel - Serum or Plasma Comprehensive Metabolic Panel Lab Routine Benign essential HTN Expected: 07/23/2023 (Approximate), Expires: 07/22/2024 [facility] Service Area Work Phone: Comment on above: Expected: 07/23/2023 (Approximate), Expires: 07/22/2024 Start: 07-23-2023 End: 07-23-2023 Patient encounter procedure 07/23/2023 8:15 AM EDT Office Visit [facility] [address] [place] [phone] Breanna Obrien MD [address] [place] [address] [facility] Start: 07-09-2023 End: 07-09-2023 Patient encounter procedure 07/09/2023 8:00 AM EDT Appointment [facility] [address] [facility] [address] [place] [address] [facility] Start: 07-02-2023 End: 07-01-2024 25-hydroxyvitamin D3 [Mass/volume] in Serum or Plasma Vitamin D 25-Hydroxy,Total (for eval of Vitamin D levels) Lab Routine Vitamin D deficiency Expected: 07/02/2023 (Approximate), Expires: 07/01/2024 [facility] Work Phone: Comment on above: Expected: 07/02/2023 (Approximate), Expires: 07/01/2024 Start: 07-02-2023 End: 07-01-2024 CBC W Auto Differential panel - Blood CBC and Auto Differential Lab Routine Fatigue, unspecified type Expected: 07/02/2023 (Approximate), Expires: 07/01/2024 [facility] Work Phone: Comment on above: Expected: 07/02/2023 (Approximate), Expires: 07/01/2024 Start: 07-02-2023 End: 07-01-2024 Comprehensive metabolic 2000 panel - Serum or Plasma Comprehensive Metabolic Panel Lab Routine Glucose intolerance (impaired glucose tolerance) Benign essential hypertension Hypocalcemia Expected: 07/02/2023 (Approximate), Expires: 07/01/2024 [facility] Service Area Work Phone: Comment on above: Expected: 07/02/2023 (Approximate), Expires: 07/01/2024 Start: 07-02-2023 End: 07-01-2024 DXA Skeletal system Views for bone density XR DEXA bone density Imaging Routine Post-menopausal Expected: 07/02/2023, Expires: 07/01/2024 [facility] Work Phone: Comment on above: Expected: 07/02/2023 , Expires: 07/01/2024 Start: 07-02-2023 End: 07-01-2024 Hemoglobin A1c/Hemoglobin.total in Blood Hemoglobin A1C Lab Routine Glucose intolerance (impaired glucose tolerance) Expected: 07/02/2023 (Approximate), Expires: 07/01/2024 [facility] Work Phone: Comment on above: Expected: 07/02/2023 (Approximate), Expires: 07/01/2024 Start: 07-02-2023 End: 07-01-2024 Lipid 1996 panel - Serum or Plasma Lipid Panel Lab Routine Borderline hyperlipidemia Expected: 07/02/2023 (Approximate), Expires: 07/01/2024 [facility] Work Phone: Comment on above: Expected: 07/02/2023 (Approximate), Expires: 07/01/2024 Start: 07-02-2023 End: 07-01-2024 Magnesium [Mass/volume] in Serum or Plasma Magnesium Lab Routine Fatigue, unspecified type Expected: 07/02/2023 (Approximate), Expires: 07/01/2024 [facility] Work Phone: Comment on above: Expected: 07/02/2023 (Approximate), Expires: 07/01/2024 Start: 07-02-2023 End: 07-01-2024 TSH with reflex to Free T4 if abnormal TSH with reflex to Free T4 if abnormal Lab Routine Adult hypothyroidism Fatigue, unspecified type Expected: 07/02/2023 (Approximate), Expires: 07/01/2024 [facility] Work Phone: Comment on above: Expected: 07/02/2023 (Approximate), Expires: 07/01/2024 Start: 07-02-2023 End: 07-01-2024 Zinc [Mass/volume] in Serum or Plasma Zinc Lab Routine Fatigue, unspecified type Expected: 07/02/2023 (Approximate), Expires: 07/01/2024 [facility] Work Phone: Comment on above: Expected: 07/02/2023 (Approximate), Expires: 07/01/2024 Start: 04-12-2023 Screening for malignant neoplasm of breast Mammogram [facility] Start: 03-31-2023 End: 03-31-2024 Cytology Cervical or vaginal smear or scraping study THINPREP PAP TEST Pathology and Cytology Routine Encounter for gynecological examination without abnormal finding Encounter for screening for cervical cancer Expected: 03/31/2023 (Approximate), Expires: 03/31/2024 [facility] Work Phone: Comment on above: Expected: 03/31/2023 (Approximate), Expires: 03/31/2024 Start: 03-31-2023 End: 06-01-2024 DBT Breast - bilateral BI mammo bilateral screening tomosynthesis Imaging Routine Encounter for screening mammogram for breast cancer Expected: 03/31/2023, Expires: 06/01/2024 [facility] Service Area Work Phone: Comment on above: Expected: 03/31/2023 , Expires: 06/01/2024 Start: 03-31-2023 Patient encounter procedure ANNUAL, Provider: Brady Becker, Status: Pen, Time: 8:[address] Work Phone: Start: 12-13-2022 COVID-19 Vaccine ( season) COVID-19 Vaccine ( season) [facility] Start: 12-13-2022 Influenza vaccination Influenza Vacc ine (#1) [facility] Start: 06-06-2022 COLON, Provider: Nadir Negron, Status: Pen, Time: 9:00 AM COLON, Provider: Nadir Negron, Status: Pen, Time: 9:00 AM [facility] Internal [facility] Work Phone: Start: 05-15-2022 FUV, Provider: Breanna Obrien, Status: Pen, Time: 8:00 AM FUV, Provider: Breanna Obrien, Status: Pen, Time: 8:00 AM [facility] Work Phone: Start: 05-01-2022 FUV, Provider: Breanna Obrien, Status: Pen, Time: 8:00 AM FUV, Provider: Breanna Obrien, Status: Pen, Time: 8:00 AM [facility] Work Phone: Start: 04-17-2022 FUV, Provider: Breanna Obrien, Status: Pen, Time: 1:45 PM FUV, Provider: Breanna Obrien, Status: Pen, Time: 1:[address] Work Phone: Start: 03-15-2022 Patient encounter procedure ANNUAL, Provider: Choco Estrada, Status: Pen, Time: 1:45 PM [facility] Work Phone: Start: 05-16-2021 FUV, Provider: Breanna Obrien, Status: Pen, Time: 1:45 PM FUV, Provider: Breanna Obrien, Status: Pen, Time: 1:45 PM [facility] Work Phone: Start: 03-28-2021 FUV, Provider: Breanna Obrien, Status: Pen, Time: 1:30 PM FUV, Provider: Breanna Obrien, Status: Pen, Time: 1:30 PM [facility] Work Phone: Start: 03-14-2021 Patient encounter procedure [facility] Start: 02-27-2021 FUV, Provider: Breanna Obrien, Status: Pen, Time: 1:45 PM FUV, Provider: Breanna Obrien, Status: Pen, Time: 1:45 PM [facility] Work Phone: Start: 2019 RSV High Risk: (Elderly (60+) or Population) (1 - Risk 60-74 years 1-dose series) RSV High Risk: (Elderly (60+) or Population) (1 - Risk 60-74 years 1-dose series) [facility] Start: 12-13-2018 Influenza vaccination INFLUENZA VACC INE (#1) [facility] Start: 2009 Colonoscopy COLON CANCER S CREENING DISCUSSION [facility] Start: 2009 Pneumococcal vaccination Pneumococcal Vaccine (1 of 1 - PCV) [facility] Start: 2009 Zoster vaccine hzv live for subcutaneous use ZOSTER (SHINGLES) VACCINE (1 of 2) [facility] Start: 2009 Zoster Vaccines (1 o f 2) Zoster Vaccines (1 of 2) [facility] Start: 1999 Fasting lipid profile LIPID SCREENIN G [facility] Start: 1999 Screening mammography MAMMOGRA M SCREENING DISCUSSION [facility] Start: 1981 DTaP/Tdap/Td Vaccine s (1 - Tdap) DTaP/Tdap/Td Vaccines (1 - Tdap) [facility] Start: 1980 Screening for malignant neoplasm of cervix [facility] Start: 1978 Third diphtheria, tetanus and acellular pertussis (DTaP) vaccination TDAP (ADULT) [facility] Start: 1977 Diabetes mellitus screening Diabetes Screening [facility] Start: 1977 Hepatitis C screening Hepatitis C Sc reening [facility] Start: 1977 Tetanus vaccination [facility] [place] Start: 1972 HIV screening HIV SCREENING DISCUSSI ON [facility] Start: 1960 MMR Vaccines (1 of 1 - Standard series) MMR Vaccines (1 of 1 - Standard series) [facility] Start: 1959 COVID-19 Vaccine (#1) COVID-19 Vacci ne (#1) [facility] Start: 1959 [facility] Start: 1959 Hepatitis C antibody , confirmatory test [facility] Start: 1959 HIV screening HIV Screening [facility] Start: 1959 Lipid panel Lipid Panel [facility] Start: 1959 Screening for malignant neoplasm of colon [facility] Start: 1959 Thyroid stimulating hormone measurement TSH Level [facility] Start: 1959 Yearly Adult Physical Yearly Adult P hysical [facility] H/O: tubal ligation History of tubal liga tion [facility] History of colonoscopy History of colonoscopy [facility] History of colonoscopy S/P colonoscopy [facility] History of endometrial ablation History of endometrial ablation [facility] History of thyroidectomy H/O thyroidectomy [facility] XR Finger GE 2 Views [facility] NEGATED: Highlighted row has been ruled out! Planned Goals not documented [facility] [address] Work Phone: Payers Date Payer Category Payer Self-pay 2024 Medicare (Managed Care) [employer] VAL[employer]AN [id number] 2024 Medicare [id number] 2022 Blue [employer] Managed Care ANTHEM HMP [id number] 2022 Unknown 2021 Unknown [id number] 2019 Unknown ANTHEM ANTHEM O PPO POS xxxxxxxxxxxx 2019-Present [id number] 2005 Unknown [id number] 1959 Unknown [id number] .356 1959 Unknown [id number] [id number] .356 1959 Unknown [id number] .356 1959 Unknown [id number] [id number] .356 1959 Unknown [id number] [id number] .1069 1959 Unknown [id number] [id number] .1069 1959 Unknown [id number] [id number] .9 1959 Unknown [id number] [id number] .1243 1959 Unknown [id number] [id number] .1243 1959 Unknown [id number] [id number] .1244 1959 Unknown [id number] [id number] .1244 1959 Unknown [id number] [id number] .1244 Private Health Insurance Unknown [id number] [id number] .462 Unknown [id number] [id number] .462 Unknown [id number] .462 Social History Date Type Detail Facility Start: 01-18-2019 End: 10-08-2024 Tobacco smoking status ILIS Never smoker [facility] Start: 01-18-2019 End: 09-29-2024 Alcohol intake Not Currently [facility] Start: 1960 Sex Assigned At Not on file [facility] Tobacco smoking consumption unknown [facility] Start: 03-31-2023 End: 09-29-2024 Never smoked tobacco Never smoked tobacco [facility] Work Phone: Start: 03-31-2023 Tobacco use and exposure Smokeless tobacco non-user [facility] Work Phone: Start: 03-31-2023 End: 09-29-2024 Alcohol intake Current drinker of alcohol (finding) [facility] Work Phone: Start: 03-31-2023 Alcohol Comment Occasionally [facility] Work Phone: Start: 03-21-2023 End: 09-01-2024 Exposure to SARS-CoV-2 (event) Not sure [facility] Start: 1960 Sex Assigned At Female [facility] NEGATED: Highlighted row - - [facility] [address] Work Phone: NEGATED: Highlighted row Not [facility] Goals Date Patient Goal Desired Activity /State Functional Status Date Assessment Result Facility 09-29-2024 Patient Health Questionnaire 2 item (PHQ-2) [Reported] [facility] Work Phone: 09-01-2024 Patient Health Questionnaire 2 item (PHQ-2) [Reported] [facility] Work Phone: NEGATED: Highlighted row Functional performance Functional status health issues are not documented Disease [facility] [address] Work Phone: Mental Status Date Assessment Result Facility 10-13-2024 Cognitive function Voice/Name [facility] Work Phone: NEGATED: Highlighted row Cognitive function [Interpretation] Cognitive status health issues are not documented Disease [facility] [address] Work Phone: Clinical Notes 12-13-2020 to 10-13-2024 Note Date & Type Note Facility 10-13-2024 History and physi marilu note Note Date/Time October 13, 2024 2:03pm [facility] Medical Records Department [address] [place] [address] H&P Exam - Surgical 10/13/24 1400 MR#: [id number] Acct: [id number] Name: YAYO CHEN Rep #:[id number] : 1960 64 From: Sanjiv Cancino MD PCP: BREANNA OBRIEN Status:[facility] Location: [place] [address] HPI - General HPI Narrative The patient is a 64-year-old female presenting with a cyst on the left small finger. The cyst has been present for approximately two to three years and has been slowly growing over this period. There is no associated pain unless the cyst is directly impacted, and there is no history of drainage or numbness. The patient has no history of diabetes or smoking, and she takes thyroid and blood pressure medications. She has a history of thyroidectomy and is currently on thyroid replacement therapy. Attestation: Documentation on this patient encounter was supported using ambient scribe technology/ voice AI technology. The patient consented to recording for the purpose of documenting the encounter. Provider reviewed content of the generatednote prior to signature. Current Encounter (DATE OF SURGERY H&P UPDATE): I saw and examined the patient this afternoon in pre-operative holding. We discussed risks and benefits of today's surgery and they would like to proceed. NO CHANGE in health history since last seen and evaluated. Ready to proceed with surgery. [facility] Medical History Wears glasses Marijuana use Non-smoker Hypertension Home Medications ?Medication ?Instructions ?Recorded ?Last Taken ?Type levothyroxine 150 mcg tablet 150 mcg PO QDAY 09/30/24 10/13/24 08:00 History lisinopril 10 mg tablet 10 mg PO QDAY 09/30/24 Unkno wn History ergocalciferol (vitamin D2) 1,250 1,250 mcg PO .qd Unknown History mcg (50,000 unit) capsule metformin 500 mg tablet 250 mg PO .qd 10/08/24 Unkno wn History Allergy/AdvReac Type Severity Reaction Status Date / Time No Known Allergies Allergy Verified 10/13/24 12:35 Family History Father Bladder cancer Diabetes Mother Breast cancer Melanoma Grandmother Arthritis Surgical History Hx of tubal ligation Hx of colonoscopy with polypectomy H/O thyroidectomy Social History Smoking Status: Never smoker alcohol intake: never substance use type: does not use additional social history: pt denies smoking, denies marijuana use, denies aspirin, uses ibuprofen as needed, uses edibles, pt denies blood clots/disorder Vital Signs Vital Signs Vital Signs: 10/13/24 12:35 10/13/24 12:35 10/13/24 13:59 Temperature 98.4 F 98.4 F Temperature Source Temporal Pulse Rate 77 77 Respiratory Rate 18 18 Respiratory Pattern Normal Blood Pressure 131/74 H 131/74 H Blood Pressure Mean 93 Blood Pressure Source Monitor Blood Pressure Position Sitting Blood Pressure Location Right Arm Pulse Ox 96 96 Oxygen Delivery Method Room Air Room Air Weight Weight: 242 lb 4.608 oz Body Mass Index (BMI) 42.9 Physical Exam Narrative Left upper Extremity Inspection: Mass on the left dorsal and ulnar side of the left small finger, approximately 2 x 1-1/2 cm, located on the dorsal ulnar side of the DIP joint. The mass transilluminates, suggesting a ganglion cyst. Palpation: No epitrochlear or left axillary lymphadenopathy. Motor: Able to bend and extend all MP, PIP, and DIP joints, except for about 30 degrees of flexion in the DIP joint of the left small finger due to restriction and flexion secondary to the bulging of the mass. Sensory: Intact to light touch on the radial and ulnar borders. Same sensation between both small fingers. Vascular: Finger tips are warm and well perfused with greater than 2 second capillary refill. Results Imaging XRAY FINGER Well-defined 1.4 x 1.2 cm soft tissue lesion is noted overlying the dorsal/distal aspect of the middle phalanx. No radiographic evidence of an associated significant erosive bone abnormality. No bony mass is identified. Assessment & Plan Assessment/Plan (1) Mucous cyst of digit of left hand: PLAN: Assessment and Plan The patient is a 64-year-old female with a history of thyroidectomy presenting with a cyst on the left small finger. The differential diagnosis includes a mucous cyst, ganglion cyst, or a giant cell tumor of the tendon sheath. The massis causing restriction in flexion at the DIP joint, and there is no associated pain unless directly impacted. The mass transilluminates, which is consistent with a ganglion cyst, but furtherevaluation with an x-ray is planned to confirm the diagnosis and assess for any underlying bone spurs. We discussed the differential diagnosis for the mass. Common masses in the hand include ganglion cyst of tendon sheath, giant cell tumor of tendon sheath, and lipoma. All these masses are benign. We also discussed that over 95% of the masses found in the hand and fingers are benign, and not cancerous. 1. Mucous Cyst On The Left Small Finger The plan is to obtain an x-ray of the left small finger to evaluate the cyst further and rule out any underlying bone spurs. Surgical excision of the cyst isan option, with the procedure to be performed in the operating room under local anesthesia and sedation. The patient is advised about the potential for recurrence and the importance of complete excision to minimize this risk. Surgical excision will include debridement of any associated bone spurs to reduce the risk of recurrence. 2. Possible Giant Cell Tumor Of The Tendon Sheath In the case of a giant cell tumor, marginal excision will be performed to ensurecomplete removal, acknowledging the difficulty of achieving clear margins on a finger. 45% recurrence rate discussed Plan I talked to the patient extensively about the risks of surgery, including bleeding, infection, damage to surrounding structures (terminal slip and collateral ligaments, nailbed), poor scaring, surgical site dehiscence and woundformation, need for wound care, need for repeat operations, failure to obtain the desired result, and the risks of anesthesia. The benefits and alternatives of this surgery were also discussed. All of their questions were answered, and they agreed to proceed with surgery. CPT codes for insurance prior authorization are as follows: 74309, 09737 Plan Details Additional Comments: - Schedule an x-ray of the left small finger as soon as possible. - Arrange for someone to drive you to the outpatient surgery appointment. - Follow up with the surgeon if there are any changes in the size or symptoms ofthe cyst. INTERVAL H&P PLAN, DATE OF SURGERY: We will proceed with surgery today. Discussed possible rotation flap for closure and possibility of wound complications/infection. She agreed to proceed. 10/13/24 1403 <Electronically signed by Sanjiv Cancino MD> Cosigner Signature (if applicable): CC: Dr. Sanjiv Cancino MD; BREANNA OBRIEN~ Signed [facility] Work Phone: [phone]) 836-872607-02-2025 Consult note Author Brayan Bauman [facility] Note Date/Time October 13, 2024 1:59p m [facility] Medical Records Department [address] [place] [address] Pre-Anesthesia Evaluation 10/13/24 1354 MR#: [id number] Acct: [id number] Name: YAYO CHEN Rep #:[id number] : 1960 64 From: Brayan Bauman MD PCP: BREANNA OBRIEN Status:REG SDC Y Race: C Location: [place] [address] ASA Classification* ASA Classification ASA Classification: 3 Assessment & Plan Anesthesia* Anesthesia Assessment Anesthesia Assessment: Discussed sedation and/or anesthesia options, risks, benefits, and alternatives with patient/parents/legal guardian/POA. Questions invited. The patient/parents/legal guardian/POA seems to understand and agrees to proceedwith anesthesia plan. Reviewed the physical assessment, medical history, allergy history and patient home medications list prior to surgery/procedure/anesthetic and documented any changes. Performed airway and anesthesia risk assessments. Anesthesia Type Anesthesia Type: MAC History Source History Obtained from:: Patient and Chart Anesthesia Focused Assessment* Temperature: 98.4 F Pulse Rate: 77 Blood Pressure: 131/74 Respiratory Rate: 18 Pulse Ox: 96 Oxygen Delivery Method: Room Air Airway Assessment Mouth opens: >3 cm Mallampati Score: IV Teeth Condition: Partial (Patient has upper partial. It is out.) Neck Range of motion (ROM): Full ROM Labs Anesthesia Preop lab: CBC CHEMISTRY COAG Pre-Assessment Diagnosis/Proposed Procedure Planned Operative Procedure(s): (L) Left small finger mucous cyst excision and possible local soft tissue rearrangement Anesthesia History Anesthesia History - observation assistant: Anesthesia History - observation assistant Hx Hospitalization No 10/08/24 10:38 Any Problems With Anesthesia No 10/08/24 10:38 Cholinesterase deficiency No 10/08/24 10:38 You/Your Family Experience No 10/08/24 10:38 fever (hyperthermia) with Relationship Recent Exposure to Contagious No 10/13/24 12:35 Disease Does patient have nerve No 10/08/24 10:38 stimulator Patient instructed to have device shut off --Does patient have Pacemaker No 10/13/24 12:35 or ICD? When Was Last Pacemaker Check QUESTION #4 FULL TEXT: You/Your Family Experience fever (hyperthermia) with Anesthesia Last Oral Intake Last Oral intake: Last Oral Intake NPO since 08:00 10/13/24 12:35 Meds taken in AM with sips of Yes 10/13/24 12:35 water? Meds patient instructed to levothyroxine 10/13/24 12:35 take am of surgery Any additional information?: Yes Meds taken in AM with sips of water?: Yes PONV PONV - observation assistant: PONV - observation assistant Female Yes 10/08/24 10:38 HX of Motion Sickness No 10/08/24 10:38 HX of N/V After Surgery No 10/08/24 10:38 Non-Smoker Yes 10/08/24 10:38 Duration of Surgery greater No 10/08/24 10:38 than 60 minutes Number of Risk Factors 2 10/08/24 10:38 PONV Score Moderate Risk 10/08/24 10:38 Height & Weight Height & Weight: Anesthesia: Height & Weight Height 5 ft 3 in 10/13/24 12:35 Weight: 109.9 kg 10/13/24 12:35 Body Mass Index (BMI) 42.9 10/13/24 12:35 Respiratory Assessment Respiratory Assessment - observation assistant: Respiratory Tract Infection Hx - observation assistant Hx Respiratory Tract Infection No 10/08/24 10:38 STOP Sleep Apnea STOP Sleep Apnea - observation assistant: STOP Sleep Apnea - observation assistant Hx Hypertension Yes: on meds 10/08/24 10:38 Hx Sleep Apnea No 10/08/24 10:38 CPAP BIPAP Do you snore loudly (louder No 10/08/24 10:38 than talking or can be heard Do you often feel tired/ No 10/08/24 10:38 fatigued/ sleepy during daytime? Has anyone observed you stop No 10/08/24 10:38 breathing during sleep? STOP Results Negative 10/08/24 10:38 QUESTION #5 FULL TEXT : Do you snore loudly (louder than talking or can be heard through closed doors)? Tobacco Use History Tobacco Use History - observation assistant: Tobacco Use History - observation assistant Tobacco Use Smoking Status Never smoker 10/08/24 10:38 Hx Tobacco Use No 10/08/24 10:38 Years Smoking Packs Smoked per Day Smoking Cessation Date was within the last 15 years Hx Smoking Cessation Date Hx Smoking Cessation Counseling Hematologic Medial History Hematologic Hx - observation assistant: Hematologic Medical Hx - electrician outside Hx of Blood Transfusion No 10/08/24 10:38 Hx of Transfusion in last 3 No 10/08/24 10:38 Months Date of Last Transfusion (if within last 3 months) Ever experience any problems No 10/08/24 10:38 with transfusion(s)? Specify any problems Hx of Preganancy in last 3 No 10/08/24 10:38 Months Nurse Filling Out Transfusion JZOLLELIZABETH 10/08/24 10:38 & Questions: Date: 10/08/24 10/08/24 10:38 Time: 10:41 10/08/24 10:38 Patient unable to answer at this time (ie. confused, unrespo /Reproduction History /Reproductive History - observation assistant: /Reproductive Hx- observation assistant Hx Now No 10/08/24 10:38 Gestational Age (in weeks): EDC: Hx Hx Para Hx Section SAB No 10/08/24 10:38 Active Medications Active Medications: Current Medications Generic Name Dose Route Start Last Admin Trade Name Freq PRN Reason Stop Dose Admin Cefazolin Sodium 2 gm/ Sodium 110 mls @ 200 mls/hr 10/13/24 13:45 Chloride IV 10/13/24 14:17 INTRAOP ONE Lactated Ringer's 1,000 mls @ 15 mls/hr 10/13/24 12:30 10/13/24 12:41 IV 15 mls/hr .Q48H MAHESH Administration PFSH Medical History (Updated 10/08/24 @ 10:38 by Grace Orona) Wears glasses Marijuana use Non-smoker Hypertension Home Medications ?Medication ?Instructions ?Recorded ?Last Taken ?Type levothyroxine 150 mcg tablet 150 mcg PO QDAY 09/30/24 10/13/24 08:00 History lisinopril 10 mg tablet 10 mg PO QDAY 09/30/24 Unkno wn History ergocalciferol (vitamin D2) 1,250 1,250 mcg PO .qd Unknown History mcg (50,000 unit) capsule metformin 500 mg tablet 250 mg PO .qd 10/08/24 Unkno wn History Allergy/AdvReac Type Severity Reaction Status Date / Time No Known Allergies Allergy Verified 10/13/24 12:35 Family History Father Bladder cancer Diabetes Mother Breast cancer Melanoma Grandmother Arthritis Surgical History (Updated 10/08/24 @ 10:46 by Grace Orona) Hx of tubal ligation Hx of colonoscopy with polypectomy H/O thyroidectomy Social History Smoking Status: Never smoker alcohol intake: never substance use type: does not use additional social history: pt denies smoking, denies marijuana use, denies aspirin, uses ibuprofen as needed, uses edibles, pt denies blood clots/disorder Review of Systems (Anesthesia) ROS Narrative System reviewed and no additional complaints, except as documented. 10/13/24 1359 <Electronically signed by Brayan tyson MD> Date _ Brayan Bauman MD Cosigner Signature: Date CC: ~ Signed [facility] Work Phone: 1(417) 169-943607-02-2025 Consult note [facility] Medical Records Department [address] [place] [address] Anesthesia Postop Eval I 10/13/24 1531 MR#: [id number] Acct: [id number] Name: YAYO CHEN Rep #:[id number] : 1960 64 From: Nolberto leon CRNA PCP: BREANNA OBRIEN Status:REG SDC Y Race: C Location: [place] [address] Anesthesia: Postop Eval I Current Vital Signs Temperature: 97.4 F Pulse Rate: 86 Blood Pressure: 122/67 Respiratory Rate: 18 Pulse Ox: 96 Oxygen Delivery Method: Room Air Assessment Airway patent: Yes Spontaneous unlabored respirations: Yes Mental status: Awake nausea: No Vomiting: No Anesthesia Complication: No Fluid Hydration Crystalloid volume administer (ml): 800 Total IV fluid infused: 800 Progress Note Anesthesia document: Postop Eval 1 completed: Yes 10/13/24 1532 ero WOOL SHEARING SUPERVISOR> Date _ Nolberto Carriero WOOL SHEARING SUPERVISOR Cosigner Signature: Date CC: ~ Signed [facility]07-02-2025 History and physical note [facility] Medical Records Department [address] [place] [address] H&P Exam - Surgical 10/13/24 1400 MR#: [id number] Acct: [id number] Name: YAYO CHEN Rep #:[id number] : 1960 64 From: Sanjiv Cancino MD PCP: BREANNA OBRIEN Status:REG [facility] Location: [place] [address] HPI - General HPI Narrative The patient is a 64-year-old female presenting with a cyst on the left small finger. The cyst has been present for approximately two to three years and has been slowly growing over this period. Thereis no associated pain unless the cyst is directly impacted, and there is no history of drainage or numbness. The patient has no history of diabetes or smoking, and she takes thyroid and blood pressure medications. She has a history of thyroidectomy and is currently on thyroid replacement therapy. Attestation: Documentation on this patient encounter was supported using ambient scribe technology/ voice AI technology. The patient consented to recording for the purpose of documenting the encounter. Provider reviewed content of the generatednote prior to signature. Current Encounter (DATE OF SURGERY H&P UPDATE): I saw and examined the patient this afternoon in pre-operative holding. We discussed risks and benefits of today's surgery and they would like to proceed. NO CHANGE in health history since last seen and evaluated. Ready to proceed with surgery. [facility] Medical History Wears glasses Marijuana use Non-smoker Hypertension Home Medications ?Medication ?Instructions ?Recorded ?Last Taken ?Type levothyroxine 150 mcg tablet 150 mcg PO QDAY 09/30/24 10/13/24 08:00 History lisinopril 10 mg tablet 10 mg PO QDAY 09/30/24 Unkno wn History ergocalciferol (vitamin D2) 1,250 1,250 mcg PO .qd Unknown History mcg (50,000 unit) capsule metformin 500 mg tablet 250 mg PO .qd 10/08/24 Unkno wn History Allergy/AdvReac Type Severity Reaction Status Date / Time No Known Allergies Allergy Verified 10/13/24 12:35 Family History Father Bladder cancer Diabetes Mother Breast cancer Melanoma Grandmother Arthritis Surgical History Hx of tubal ligation Hx of colonoscopy with polypectomy H/O thyroidectomy Social History Smoking Status: Never smoker alcohol intake: never substance use type: does not use additional social history: pt denies smoking, denies marijuana use, denies aspirin, uses ibuprofen as needed, uses edibles, pt denies blood clots/disorder Vital Signs Vital Signs Vital Signs: 10/13/24 12:35 10/13/24 12:35 10/13/24 13:59 Temperature 98.4 F 98.4 F Temperature Source Temporal Pulse Rate 77 77 Respiratory Rate 18 18 Respiratory Pattern Normal Blood Pressure 131/74 H 131/74 H Blood Pressure Mean 93 Blood Pressure Source Monitor Blood Pressure Position Sitting Blood Pressure Location Right Arm Pulse Ox 96 96 Oxygen Delivery Method Room Air Room Air Weight Weight: 242 lb 4.608 oz Body Mass Index (BMI) 42.9 Physical Exam Narrative Left upper Extremity Inspection: Mass on the left dorsal and ulnar side of the left small finger, approximately 2 x 1-1/2 cm, located on the dorsal ulnar side of the DIP joint. The mass transilluminates, suggesting a ganglion cyst. Palpation: No epitrochlear or left axillary lymphadenopathy. Motor: Able to bend and extend all MP, PIP, and DIP joints, except for about 30 degrees of flexion in the DIP joint of the left small finger due to restriction and flexion secondary to the bulging ofthe mass. Sensory: Intact to light touch on the radial and ulnar borders. Same sensation between both small fingers. Vascular: Finger tips are warm and well perfused with greater than 2 second capillary refill. Results Imaging XRAY FINGER Well-defined 1.4 x 1.2 cm soft tissue lesion is noted overlying the dorsal/distal aspect of the middle phalanx. No radiographic evidence of an associated significant erosive bone abnormality. No bony mass is identified. Assessment & Plan Assessment/Plan (1) Mucous cyst of digit of left hand: PLAN: Assessment and Plan The patient is a 64-year-old female with a history of thyroidectomy presenting with a cyst on the left small finger. The differential diagnosis includes a mucous cyst, ganglion cyst, or a giant cell tumor of the tendon sheath. The massis causing restriction in flexion at the DIP joint, and there isno associated pain unless directly impacted. The mass transilluminates, which is consistent with a ganglion cyst, but furtherevaluation with an x-ray is planned to confirm the diagnosis and assess for any underlying bone spurs. We discussed the differential diagnosis for the mass. Common masses in the hand include ganglion cyst of tendon sheath, giant cell tumor of tendon sheath, and lipoma. All these masses are benign. We also discussed that over 95% of the masses found in the hand and fingers are benign, and not cancerous. 1. Mucous Cyst On The Left Small Finger The plan is to obtain an x-ray of the left small finger to evaluate the cyst further and rule out any underlying bone spurs. Surgical excision of the cyst isan option, with the procedure to be performed in the operating room under local anesthesia and sedation. The patient is advised about the potential for recurrence and the importance of complete excision to minimize this risk. Surgical excision will include debridement of any associated bone spurs to reduce the risk of recurrence. 2. Possible Giant Cell Tumor Of The Tendon Sheath In the case of a giant cell tumor, marginal excision will be performed to ensurecomplete removal, acknowledging the difficulty of achieving clear margins on a finger. 45% recurrence rate discussed Plan I talked to the patient extensively about the risks of surgery, including bleeding, infection, damage to surrounding structures (terminal slip and collateral ligaments, nailbed), poor scaring, surgical site dehiscence and woundformation, need for wound care, need for repeat operations, failure to ob tain the desired result, and the risks of anesthesia. The benefits and alternatives of this surgerywere also discussed. All of their questions were answered, and they agreed to proceed with surgery. CPT codes for insurance prior authorization are as follows: 40378, [id number] Plan Details Additional Comments: - Schedule an x-ray of the left small finger as soon as possible. - Arrange for someone to drive you to the outpatient surgery appointment. - Follow up with the surgeon if there are any changes in the size or symptoms ofthe cyst. INTERVAL H&P PLAN, DATE OF SURGERY: We will proceed with surgery today. Discussed possible rotation flap for closure and possibility of wound complications/infection. She agreed to proceed. 10/13/24 1403 Cosigner Signature (if applicable): CC: Dr. Sanjiv Cancino MD; BREANNA OBRIEN~ Signed [facility]07-02-2025 Consult note [facility] Medical Records Department [address] [place] [address] Pre-Anesthesia Evaluation 10/13/24 1354 MR#: [id number] Acct: [id number] Name: YAYO CHEN Rep #:[id number] : 1960 64 From: Brayan Bauman MD PCP: BREANNA OBRIEN Status:REG [facility] Y Race: C Location: [place] [address] ASA Classification* ASA Classification ASA Classification: 3 Assessment & Plan Anesthesia* Anesthesia Assessment Anesthesia Assessment: Discussed sedation and/or anesthesia options, risks, benefits, and alternatives with patient/parents/legal guardian/POA. Questions invited. The patient/parents/legal guardian/POA seems to understand and agrees to proceedwith anesthesia plan. Reviewed the physical assessment, medical history, allergy history and patient home medications list prior to surgery/procedure/anesthetic and documented any changes. Performed airway and anesthesia risk assessments. Anesthesia Type Anesthesia Type: MAC History Source History Obtained from:: Patient and Chart Anesthesia Focused Assessment* Temperature: 98.4 F Pulse Rate: 77 Blood Pressure: 131/74 Respiratory Rate: 18 Pulse Ox: 96 Oxygen Delivery Method: Room Air Airway Assessment Mouth opens: >3 cm Mallampati Score: IV Teeth Condition: Partial (Patient has upper partial. It is out.) Neck Range of motion (ROM): Full ROM Labs Anesthesia Preop lab: CBC CHEMISTRY COAG Pre-Assessment Diagnosis/Proposed Procedure Planned Operative Procedure(s): (L) Left small finger mucous cyst excision and possible local soft tissue rearrangement Anesthesia History Anesthesia History - observation assistant: Anesthesia History - observation assistant Hx Hospitalization No 10/08/24 10:38 Any Problems With Anesthesia No 10/08/24 10:38 Cholinesterase deficiency No 10/08/24 10:38 You/Your Family Experience No 10/08/24 10:38 fever (hyperthermia) with Relationship Recent Exposure to Contagious No 10/13/24 12:35 Disease Does patient have nerve No 10/08/24 10:38 stimulator Patient instructed to have device shut off --Does patient have Pacemaker No 10/13/24 12:35 or ICD? When Was Last Pacemaker Check QUESTION #4 FULL TEXT: You/Your Family Experience fever (hyperthermia) with Anesthesia Last Oral Intake Last Oral intake: Last Oral Intake NPO since 08:00 10/13/24 12:35 Meds taken in AM with sips of Yes 10/13/24 12:35 water? Meds patient instructed to levothyroxine 10/13/24 12:35 take am of surgery Any additional information?: Yes Meds taken in AM with sips of water?: Yes PONV PONV - observation assistant: PONV - observation assistant Female Yes 10/08/24 10:38 HX of Motion Sickness No 10/08/24 10:38 HX of N/V After Surgery No 10/08/24 10:38 Non-Smoker Yes 10/08/24 10:38 Duration of Surgery greater No 10/08/24 10:38 than 60 minutes Number of Risk Factors 2 10/08/24 10:38 PONV Score Moderate Risk 10/08/24 10:38 Height & Weight Height & Weight: Anesthesia: Height & Weight Height 5 ft 3 in 10/13/24 12:35 Weight: 109.9 kg 10/13/24 12:35 Body Mass Index (BMI) 42.9 07/02/25 12:35 Respiratory Assessment Respiratory Assessment - observation assistant: Respiratory Tract Infection Hx - observation assistant Hx Respiratory Tract Infection No 10/08/24 10:38 STOP Sleep Apnea STOP Sleep Apnea - observation assistant: STOP Sleep Apnea - observation assistant Hx Hypertension Yes: on meds 10/08/24 10:38 Hx Sleep Apnea No 10/08/24 10:38 CPAP BIPAP Do you snore loudly (louder No 10/08/24 10:38 than talking or can be heard Do you often feel tired/ No 10/08/24 10:38 fatigued/ sleepy during daytime? Has anyone observed you stop No 10/08/24 10:38 breathing during sleep? STOP Results Negative 10/08/24 10:38 QUESTION #5 FULL TEXT : Do you snore loudly (louder than talking or can be heard through closeddoors)? Tobacco Use History Tobacco Use History - observation assistant: Tobacco Use History - observation assistant Tobacco Use Smoking Status Never smoker 10/08/24 10:38 Hx Tobacco Use No 10/08/24 10:38 Years Smoking Packs Smoked per Day Smoking Cessation Date was within the last 15 years Hx Smoking Cessation Date Hx Smoking Cessation Counseling Hematologic Medial History Hematologic Hx - observation assistant: Hematologic Medical Hx - electrician outside Hx of Blood Transfusion No 10/08/24 10:38 Hx of Transfusion in last 3 No 10/08/24 10:38 Months Date of Last Transfusion (if within last 3 months) Ever experience any problems No 10/08/24 10:38 with transfusion(s)? Specify any problems Hx of Preganancy in last 3 No 10/08/24 10:38 Months Nurse Filling Out Transfusion JZOLLINGE 10/08/24 10:38 & Questions: Date: 10/08/24 10/08/24 10:38 Time: 10:41 10/08/24 10:38 Patient unable to answer at this time (ie. confused, unrespo /Reproduction History /Reproductive History - observation assistant: /Reproductive Hx- observation assistant Hx Now No 10/08/24 10:38 Gestational Age (in weeks): EDC: Hx Hx Para Hx Section SAB No 10/08/24 10:38 Active Medications Active Medications: Current Medications Generic Name Dose Route Start Last Admin Trade Name Freq PRN Reason Stop Dose Admin Cefazolin Sodium 2 gm/ Sodium 110 mls @ 200 mls/hr 10/13/24 13:45 Chloride IV 10/13/24 14:17 INTRAOP ONE Lactated Ringer's 1,000 mls @ 15 mls/hr 10/13/24 12:30 10/13/24 12:41 IV 15 mls/hr .Q48H MAHESH Administration PFSH Medical History (Updated 10/08/24 @ 10:38 by Grace Orona) Wears glasses Marijuana use Non-smoker Hypertension Home Medications ?Medication ?Instructions ?Recorded ?Last Taken ?Type levothyroxine 150 mcg tablet 150 mcg PO QDAY 09/30/24 10/13/24 08:00 History lisinopril 10 mg tablet 10 mg PO QDAY 09/30/24 Unkno wn History ergocalciferol (vitamin D2) 1,250 1,250 mcg PO .qd Unknown History mcg (50,000 unit) capsule metformin 500 mg tablet 250 mg PO .qd 10/08/24 Unkno wn History Allergy/AdvReac Type Severity Reaction Status Date / Time No Known Allergies Allergy Verified 10/13/24 12:35 Family History Father Bladder cancer Diabetes Mother Breast cancer Melanoma Grandmother Arthritis Surgical History (Updated 10/08/24 @ 10:46 by Grace Orona) Hx of tubal ligation Hx of colonoscopy with polypectomy H/O thyroidectomy Social History Smoking Status: Never smoker alcohol intake: never substance use type: does not use additional social history: pt denies smoking, denies marijuana use, denies aspirin, uses ibuprofen as needed, uses edibles, pt denies blood clots/disorder Review of Systems (Anesthesia) ROS Narrative System reviewed and no additional complaints, except as documented. 10/13/24 135Rox tyson MD> Date _ Brayan Bauman MD Cosigner Signature: Date CC: ~ Signed [facility]06-20-2025 Radiology Diagnostic study note [facility] Imaging Services [address] [place] [address] Finger(s) Min 2 Views MR#: [id number] Acct: [id number] Name: YAYO CHEN Rep #: [id number] : 1960 F 64 From: Jude Vegas MD PCP: BREANNA OBRIEN Status: REG CLI Study:Finger(s) Min 2 Views Date of Exam: 09/30/24 Exam# [id number] Ordering Dr: Sherley Cancino MD PROCEDURE: FINGER(S) MIN 2 VIEWS 09/30/2024 REASON FOR EXAM: CYST 5TH FINGER TECHNIQUE: FINGER(S) MIN 2 VIEWS LEFT 5TH FINGER. COMPARISON: None. FINDINGS: Well-defined 1.4 x 1.2 cm soft tissue lesion is noted overlying the dorsal/distal aspect of the middle phalanx. Mild osteopenia of the visualized bones. Degenerative joint disease. No fracture or dislocation is seen. No lytic or blastic bone lesion is noted. RAD/Finger(s) Min 2 Views IMPRESSION: Well-defined 1.4 x 1.2 cm soft tissue lesion is noted overlying the dorsal/distal aspect of the middle phalanx. No radiographic evidence of an associated significant erosive bone abnormality. No bony mass is identified. Reading [facility] CC: Dr. 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: Signed [facility]06-19-2025 Evaluation note* Diagnosis Onset Date Resolution Status Admit Date Mucous cyst of digit of left hand ac [place] September 30, 2024 1:04pm [facility] Work Phone: 1(435) 413-656806-19-2025 Evaluation note* Diagnosis Onset Date Resolution Status Admit Date Mucous cyst of digit of left hand ac [place] September 30, 2024 1:04pm Mucous cyst of digit of left hand ac [place] October 13, 2024 12:02pm [facility] Work Phone: 1(226) 385-748406-18-2025 Evaluation + Plan note* Assessment & Plan Note - Breanna Obrien MD - 09/29/2024 10:45 AM EDTAssociated Problem(s): Impaired fasting glucose Orders: metFORMIN (Glucophage) 500 mg tablet; Take 1 tablet (500 mg) by mouth once daily with breakfast. [facility] Work Phone: [phone]) 811-201406-18-2025 Evaluation + Plan note* Assessment & Plan Note - Breanna Obrien MD - 09/29/2024 10:45 AM EDTAssociated Problem(s): Adult hypothyroidism Orders: levothyroxine (Synthroid, Levoxyl) 125 mcg tablet; Take 1 tablet (125 mcg) by mouth once daily. [facility] Work Phone: 1(523) 527-887506-18-2025 Evaluation + Plan note* Assessment & Plan Note - Breanna Obrien MD - 09/29/2024 10:45 AM EDTAssociated Problem(s): Benign essential HTN [facility] Work Phone: [phone]) 778-895606-18-2025 History of Present illness Narrative* Breanna Obrien MD - 09/29/2024 10:45 AM EDT Subjective Reason for Visit: Yayo Chen is an 64 y.o. female here for a Medicare Wellness visit. Past Medical, Surgical, and Family History reviewed and updated in chart. Reviewed all medications by prescribing practitioner or clinical pharmacist (such as prescriptions,OTCs, herbal therapies and supplements) and documented in [...] patient,diagnosis , treatment and prognosis discussed with ptfor 16 minutes,pt has capacity to make own [...] REFERRAL, . 3 mon documented in this [facility] Work Phone: [phone]) 437-530406-18-2025 Miscellaneous Notes* Assessment & Plan Note - Breanna Obrien MD - 09/29/2024 10:45 AM EDTAssociated Problem(s): Impaired fasting glucose Orders: metFORMIN (Glucophage) 500 mg tablet; Take 1 tablet (500 mg) by mouth once daily with breakfast. * Assessment & Plan Note - Breanna Obrien MD - 09/29/2024 10:45 AM EDT Associated Problem(s): Adult hypothyroidism Orders: levothyroxine (Synthroid, Levoxyl) 125 mcg tablet; Take 1 tablet (125 mcg) by mouth once daily. * Assessment & Plan Note - Breanna Obrien MD - 09/29/2024 10:45 AM EDT Associated Problem(s): Benign essential HTN documented in this [facility] Work Phone: [phone]) 682-294405-21-2025 History of Present illness Narrative* Braenna Obrien MD - 09/01/2024 9:30 AM EDT Subjective Patient ID: Yayo Chen is a 64 y.o. female who presents for Follow-up (GENERAL CHECK UP WITH LABS - [facility]). HPI Lab F/U,MED REFILL . LAST VISIT WAS ONE YEAR AGO , WEIGHT GAIN, CHRONIC FATIGUE . ANXIETY ,HAD BEENUNDER MORE STRESS ,DIDN'T TAKE THE VIT D [...] DOWN ON CAFFEINE. OFFERED TO START PRN BUSPAR, PT REFUSED AND WANTS TO WAIT. IMPAIRED [...] weeks. [facility] Work Phone: [phone]) 744-250912-20-2024 History of Present illness Narrative* Brady Becker MD - 04/02/2024 8:30 AM EST Yayo Chen is a 64 y.o. female who is here for a routine exam. PCP = Breanna Obrien MD Chief Complaint Patient presents with Gynecologic Exam Patient is here for yearly exam and pap test. Patient does not do regular self breast exams and hasno concerns at this time. LMP: Menopause. 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 [facility] Work Phone: 1(476) 941-316604-10-2024 History of Present illness Narrative* Breanna Obrien MD - 07/23/2023 8:15 AM EDT Subjective Patient ID: Yayo Chen is a [...] D deficiency ergocalciferol (Vitamin D-2) 1.25 MG (29577 UT) capsule Vitamin D 25-Hydroxy,Total (for eval [...] DAILY EXERCISE. 4 mon documented in this [facility] Work Phone: 1(119) 798-272103-20-2024 History of Present illness Narrative* Breanan Obrien MD - 07/02/2023 8:45 AM EDT Subjective Patient ID: Yayo Chen is a [...] help with weight loss. documented in this [facility] Work Phone: 1([phone]) 309-134012-18-2023 History of Present illness Narrative* Brady Becker MD - 03/31/2023 8:30 AM EST Yayo Chen is a 63 y.o. female who is here for a routine exam. PCP = Breanna Obrien MD Chief Complaint Patient presents with Gynecologic Exam Patient is here for yearly exam and pap test. Patient does not do regular self breast exams and hasno concerns at this time. LMP: Menopause. Presents [...] Yes Order Specific Question: Release result to [employer] Answer: Immediate [1] Order Specific Question: Is [...] visit in 1 year. [facility] Work Phone: 1(240) 514-548412-13-2022 NoteAccession #: [id number] Date of Procedure: 03/26/2022 Pathologist: [facility], Cytology Date Reported: 04/05/2022 Date Received: 03/26/2022 [...] Range: Negative Slide(s) initially screened by a Fine Hairer at [facility], [address] [address] QC review performed at [facility], [address] [place] [address] Testing for high-risk (HR) type of human [...] patient?s Pap test results. Please refer to ASC current guidelines for the use of HPV DNA testing, result interpretation, and patient management. The performance of this test was verified by the Molecular Diagnostic Laboratory at [facility]. The lab is certified under the Clinical Laboratory Amendments of 1988 (CLIA 88) as qualified to perform high complexity clinical laboratory testing. This specimen has been analyzed by the Amazing Photo LettersPrep Imaging System ([employer] an automated imaging and review system, which assists the laboratory in evaluating cells on ThinPrep Pap tests. Following automated imaging, selected jurado from every slide were reviewed by a sisal picker and/or pathologist. Electronically Signed Out By [facility], Cytology//MXG/JMGerman By the signature on this report, the individual or group listed as making the Final Interpretation/Diagnosis certifies that they have reviewed this case. Diagnostic interpretation performed at [facility] [address] [place] [address] Educational Note: Cervical cytology is a screening [...] Source of Specimen A: THINPREP PAP CERVICAL [facility] Department of Pathology [address] [place], [place] [address]CA [facility] For RehabilitationComment on above:Performed By: #### C #### [facility] Cytology [address] [facility] [id number] Chief complaint Narrative - Reported* An interactive audio and video telecommunication system which permits real time communications between the patient (at the originating site) and provider (at the distant site) was utilized to providethis telehealth service. * VIRTUAL VISIT- PT C/O FATIGUE, COUGH, CHEST CONGESTION, BODYACHES. HASN'T HAD A FEVER OR HEADACHE IN FEW DAYS. TESTED POSITIVE FOR COVID 8 DAYS AGO AT URGENT CARE. IS TAKING VITAMIN C AND A COUGH MEDICATION AND HAS INCREASED FLUID INTAKE. [facility] Internal Medicine Work Phone: [phone]) [phone] History of Present illness NarrativeF/U AFTER COVID INFECTION, LAST MONTH. HAS MILD DRY COUGH LEFT SINCE THE COVID INFECTION ON AND OFF. TASTE AND SMELL ARE ALMOST BACK.[facility] Medicine Work Phone: 1([phone]) 503-995609-24-2021 History of Present illness Narrative* VIRTUAL VISIT DUE TO COVID19 . * F/U ON COVID INFECTION ,PT WAS DX AT URGENT CARE ON 01/05. FEELS BETTER THAN LAST WEEK, BUT STILL HAS THE COUGH (SOMETIMES PRODUCTIVE) WITH CHEST AND SINUS CONGESTION AND FATIGUE . OTC TX DOESN'T HELPMUCH. DENIES HAVING SOB OR FEVER. SE GOT DEXA INJECTION AT URGENT CARE WHICH HELPS ,BUT SYMPTOMS CAME BACK AFTER SEVERAL DAYS . [facility] Medicine Work Phone: [phone]) 417-258809-01-2021 History of Present illness NarrativeLAB F/U ([facility]) , MED REFILL. H/O COVID IN SEP, HASN'T GOTTEN THE VACCINE YET.GETS RUQ ABDOMINAL PAIN 4-6/10 ON AND OFF X SEVERAL WEEKS , WHICH IS WORSE AFTER EATING MEALS . SKIN MOLE OF L UPPER BACK , NOTICED IT RECENTLY (PENDING FIXED INCOME ANALYST VISIT IN 6 MONTHS)[facility] Internal Medicine Work Phone: consult note Author Nolberto Mann [facility] Note Date/Time October 13, 2024 3:32p m [facility] Medical Records Department [address] [place] [address] Anesthesia Postop Eval I 10/13/24 1531 MR#: [id number] Acct: [id number] Name: YAYO CHEN Rep #:[id number] : 1960 64 From: Nolberto leon CRNA PCP: BREANNA OBRIEN Status:REG SDC Y Race: C Location: [place] [address] Anesthesia: Postop Eval I Current Vital Signs Temperature: 97.4 F Pulse Rate: 86 Blood Pressure: 122/67 Respiratory Rate: 18 Pulse Ox: 96 Oxygen Delivery Method: Room Air Assessment Airway patent: Yes Spontaneous unlabored respirations: Yes Mental status: Awake nausea: No Vomiting: No Anesthesia Complication: No Fluid Hydration Crystalloid volume administer (ml): 800 Total IV fluid infused: 800 Progress Note Anesthesia document: Postop Eval 1 completed: Yes 10/13/24 1532 <Electronically signed by Nolberto watt CRNA> Date _ Nolberto Mann CRNA Cosigner Signature: Date CC: ~ Signed [facility] Work Phone: Evaluation note* Diagnosis Encounter for gynecological examination without abnormal finding Encounter for screening for cervical cancer Encounter for screening mammogram for breast cancer documented in this encounter [facility] Work Phone: Evaluation note* Diagnosis Vitamin D deficiency- Primary Lipid screening Screening for lipoid disorders Secondary hypertension Other secondary hypertension, unspecified Adult hypothyroidism Unspecified hypothyroidism Glucose intolerance (impaired glucose tolerance) Impaired glucose tolerance test Benign essential hypertension Essential hypertension, benign Borderline hyperlipidemia Hypocalcemia Fatigue, unspecified type Post-menopausal Asymptomatic postmenopausal status (age-related) (natural) documented in this encounter [facility] Work Phone: Evaluation note* Diagnosis Post-menopausal Asymptomatic postmenopausal status (age-related) (natural) documented in this encounter [facility] Work Phone: Evaluation note* Diagnosis Vitamin D deficiency- Primary Benign essential HTN Adult hypothyroidism Unspecified hypothyroidism Osteopenia, unspecified location Total bilirubin, elevated Glucose intolerance (impaired glucose tolerance) Impaired glucose tolerance test documented in this encounter [facility] Work Phone: Evaluation note* Diagnosis Encounter for screening mammogram for malignant neoplasm of breast Encounter for gynecological examination without abnormal finding Encounter for screening for cervical cancer documented in this encounter [facility] Work Phone: Evaluation note* Diagnosis Encounter for screening mammogram for malignant neoplasm of breast documented in this encounter [facility] Work Phone: Evaluation note* Diagnosis Chronic fatigue- Primary Other malaise and fatigue Vitamin D deficiency Adult hypothyroidism Unspecified hypothyroidism Benign essential HTN Impaired fasting glucose Anxiety Anxiety state, unspecified Morbid obesity with BMI of 40.0-44.9, adult (Multi) documented in this encounter [facility] Work Phone: Evaluation note* Diagnosis Routine general medical examination at health care facility- Primary Routine general medical examination at a health care facility Impaired fasting glucose Adult hypothyroidism Unspecified hypothyroidism Hypercholesteremia Pure hypercholesterolemia Hypertriglyceridemia Pure hyperglyceridemia Benign essential HTN Fatigue, unspecified type documented in this encounter [facility] Work Phone: Evaluation noteNo assessment information available [facility] Work Phone: History of Present illness NarrativePresents for annual exam. She voices no complaints and is doing well. Denies any bowel or bladder problems. Denies any breast problems. Denies any postmenopausal bleeding.[address] Work Phone: History of Present illness NarrativeLAB F/U, MED REFILL. HAS CHRONC LUMP OF L 5TH FINGER X 2 YEARS ,WHICH HAS BEEN GETTING BIGGER SLOWLY. WITH PAIN 3/10 . NO H/O TRAUMA. PT IS RIGHT HANDED. BRITTLE NAILS .MP- [facility] Work Phone: Hospital Discharge instructionsAdditional Instructions Operations Performed: Cyst excision Instructions for My Care at Home or Healthcare Facility The following instructions will help you know what to expect in the days following surgery. These are general instructions. Your surgeon and therapist may give you special instructions, which vary to some degree based on your specific procedure -- follow those as directed. Do not, however, hesitate to call if you have any questions or concerns. Splint Care/Dressing Care/Wound Care Dressings - Leave the splint and the dressing on. Keep it clean and dry until clinic follow up. If the dressing feels too tight after you get home, it is ok to gently pull on the dressing to stretch it out/loosen it. Avoid smoking or other tobacco products. Smoking tobacco impairs wound healing and increases the risks of post-operative complications. Tape over your incisions (if present) will fall off on its own Activities For the first 4 weeks after surgery, try to balance your activity, allowing time for rest. Avoid lifting, pushing, or pulling anything over [address] or operate heavy machinery within 24 hrs of surgery or while taking narcotic pain medication. Pain Control/Medications If you received an anesthetic block, your hand or arm may be numb for several hours. You will be discharged to home with medications, including an oral pain medication (analgesic). Rest and elevation are still one of the most important factors for pain control. Take your pain medication as needed, but do not wait for the pain to become out of control. For severe pain, you may take prescription pain medication as directed, but please note that this may also contain Tylenol (e.g. Percocet). Do not take more than 4000mg of Tylenol (acetaminophen) from all sources daily. Pain medication may cause some lethargy, nausea, and or constipation. You should not drive/operate dangerous machinery while taking these medications. If these or other symptoms become significantly problematic, please your surgeon's office. If prescribed oral antibiotics (Keflex, Clindamycin, or others), please take prescription for full duration as instructed. You should not have any pills remaining once completed (refills are written for your convenience should the course need to be extended, but generally they are not required). Diet (what I can eat): Resume normal diet Follow up You will be seen (most likely) 1 to 2 weeks after surgery depending on the procedure. Follow-up appointment reminders: (A list of any scheduled appointments is at the end of this document) At your earliest convenience, please call [phone] to confirm/schedule a follow-up appointment with me in clinic. When to call your surgeon: If any signs of surgical site infection develop: redness, pus, pain, increased swelling or foul odor at the incision site, fever, cold and clammy skin, or confusion. Consistent temperature above 101 F (38.3 C). The affected area gets swollen or much more painful. You have excessive bleeding from surgical site (soaking through). If you experience difficulty breathing and/or shortness of breath, seek immediate medical attention. If experiencing any of the above complications or if you have any questions, call [phone] Work Phone: Reason for referral (narrative)No reason for referral information availableTorrance Memorial Medical Center Work Phone: Reason for visit Narrative* Imaging (Routine) - Pending Review Specialty Diagnoses / Procedures Referred By Manjinder danielle Referred To Contact Radiology Diagnoses Encounter for screening mammogram for malignant neoplasm of breast Procedures BI mammo bilateral screening tomosynthesis Brady Becker MD [address] [place] [address] Dr FRANCO [facility] Medical Office, [address] [address] Phone: tel: fax: Referral ID Status Reason Start Date Expiration Date Visits Requested Visits Authorized [id number] Pending Review Perform Procedure 4 04/02/2025 1 1 [facility] Work Phone: Summary Purpose Family History Grandparent [...] melanoma Unknown grandmother Arthritis Unknown Advance Directives Advance Directive Response Recorded Date/ Time Do you have a Healthcare Power of Volcanologist? No October 08, 2024 10:38am Instructions Name Dates Details Instructions not documented History of Present Illness * Isha Curtis, CORE STICKER-EPIC BEACON ANALYST - 01/18/2019 5:35 PM EDT WALK IN dEPARTMENT eNCOUnter [facility] SERVICE DATE: 01/18/19 PCP: Breanna Obrien CHIEF [...] Medications Medication Sig Dispense Refill Cholecalciferol (D3-50) 23531 units Cap Take by mouth. levothyroxine 175 [...] file Gets together: Not on file Attends denominational service: Not on file Active member of [...] levothyroxine 175 MCG Tab tablet Cholecalciferol (D3-50) 32324 units Cap lisinopril 10 MG Tab tablet [...] Portions of this chart were created using [email or web address] electronic dictation. Please excuse any typographical or [...] Referral Specialty Diagnoses / Procedures Referred By Manjinder danielle Referred To Contact Radiology Diagnoses Encounter for screening mammogram for breast cancer Procedures BI mammo bilateral screening tomosynthesis Brady Becker MD [address] [place] [address] [facility], [place] [id number] Referral ID Status Reason Start Date Expiration Date Visits Requested Visits Authorized [id number] Authorized Perform Procedure 3 03/30/2024 1 1 Specialty Diagnoses / Procedures Referred By Manjinder danielle Referred To Contact Radiology Diagnoses Post-menopausal Procedures XR DEXA bone density Breanna Obrien MD [address] [facility] [place] [address] Referral ID Status Reason Start Date Expiration Date Visits Requested Visits Authorized [id number] Pending Review Perform Procedure 07/02/2023 07/01/2024 1 1 Chief Complaint and Reason for Visit Chief Complaint Admit Date CYST L 5TH FINGER September 30, 2024 1:04 pm Chief Complaint Admit Date CYST L 5TH FINGER September 30, 2024 1:04 pm EORDERS September 30, 2024 1:50 pm Reason for Visit Admit Date Mucous cyst of digit of left hand September 122024 1:04pm Chief Complaint Admit Date CYST L 5TH FINGER September 30, 2024 1:04 pm EORDERS September 30, 2024 1:50 pm Left small finger mucous cyst excision a nd possibl October 13, 2024 12:02pm Left small finger mucous cyst excision a nd possibl October 13, 2024 2:00pm Reason for Visit Admit Date Mucous cyst of digit of left hand September 122024 1:04pm Mucous cyst of digit of left hand October 132024 12:02pm Additional Source Comments INFORMATION SOURCE (unrecogn ized section and content) DATE CREATED AUTHOR 10/27/2018 [facility] DATE CREATED AUTHOR AUTHOR'S ORGANIZ ATION 01/16/2019 [facility] DATE CREATED AUTHOR AUTHOR'S ORGANIZ ATION 05/07/2022 [employer] DATE CREATED AUTHOR AUTHOR'S ORGANIZ ATION 06/07/2022 [facility] DATE CREATED AUTHOR AUTHOR'S ORGANIZ ATION 06/13/2022 [facility] DATE CREATED AUTHOR AUTHOR'S ORGANIZ ATION 04/29/2024 [facility] DATE CREATED AUTHOR AUTHOR'S ORGANIZ ATION 10/02/2024 [facility] DATE CREATED AUTHOR AUTHOR'S ORGANIZ ATION 10/12/2024 [facility] Reason for Visit (unrecogniz ed section and [...] WEIGHT Specialty Diagnoses / Procedures Referred By Manjinder danielle Referred To Contact Radiology Diagnoses Post-menopausal Procedures XR DEXA bone density Breanna Obrien MD [address] [place] [address] Referral ID Status Reason Start Date Expiration Date Visits Requested Visits Authorized [id number] Pending Review Perform Procedure 07/02/2023 07/01/2024 1 [...] Care Teams (unrecognized sec tion and content) Manager Philosophy Relationship Specialty Start Date End Date Breanna Obrien MD [address] [facility] [place] [address] PCP - General 01/05/19 Breanna Obrien MD [address] [facility] [place] [address] PCP - Bertha ACO PCP 08/12/22 Manager Philosophy Relationship Specialty Start Date End Date Breanna Obrien MD [address] [place] [address] PCP - General 01/05/19 Breanna Obrien MD [address] [place] [address] PCP - Bertha ACO PCP 08/12/22 Manager Philosophy Relationship Specialty Start Date End Date Breanna Obrien MD [address] [place] [address] PCP - General 01/05/19 Breanna Obrien MD [address] [place] [address] PCP - Bertha ACO PCP 08/12/22 Manager Philosophy Relationship Specialty Start Date End Date Breanna Obrien MD [address] [place] [address] PCP - General 01/05/19 Breanna Obrien MD [address] [place] [address] PCP - Bertha ACO PCP 08/12/22 Manager Philosophy Relationship Specialty Start Date End Date Breanna Obrien MD [address] [place] [address] PCP - General 01/05/19 Breanna Obrien MD [address] [place] [address] PCP - Bertha ACO PCP 08/12/22 Manager Philosophy Relationship Specialty Start Date End Date Breanna Obrien MD [address] [place] [address] PCP - General 01/05/19 Breanna Obrien MD [address] [place] [address] PCP - Bertha ACO PCP 08/12/22 Breanna Obrien MD [address] [place] [address] PCP - [employer] PCP 04/14/24 Manager Philosophy Relationship Specialty Start Date End Date Breanna Obrien MD [address] [place] [address] PCP - General 01/05/19 Breanna Obrien MD [address] [place] [address] PCP - [employer] Medicare [employer] PCP 04/14/24 Manager Philosophy Relationship Specialty Start Date End Date Breanna Obrien MD [address] [place] [address] PCP - General 01/05/19 Breanna Obrien MD [address] [place], [place] [id number] PCP - [employer] PCP 04/14/24 Team Status: Active Member Role Status Dates Dr. Joanie Magallanes DO Primary Care Provider Active Team Status: Inactive Member Role Status Dates Dr. Joanie Magallanes DO Primary Care Provider Active Start: September 30, 2024 End: September 30, 2024 Dr. Joanie Magallanes DO Referring Provider Active Start: September 30, 2024 End: September 30, 2024 Dr. Sanjiv Cancino MD Attending Provider Active Start: September 30, 2024 End: September 30, 2024 Team Status: Active Member Role/Relationship Status Dates Dr. Breanna Obrien MD Primary Care Provider Active Team Status: Inactive Member Role/Relationship Status Dates Dr. Joanie Magallanes DO Primary Care Provider Active Start: September 30, 2024 End: September 30, 2024 Dr. Joanie Magallanes DO Referring Provider Active Start: September 30, 2024 End: September 30, 2024 Dr. Sanjiv Cancino MD Attending Provider Active Start: September 30, 2024 End: September 30, 2024 Team Status: Inactive Member Role/Relationship Status Dates Dr. Breanna Obrien MD Primary Care Provider Active Start: September 30, 2024 End: September 30, 2024 Dr. Sanjiv Cancino MD Attending Provider Active Start: September 30, 2024 End: September 30, 2024 Dr. Sanjiv Cancino MD Referring Provider Active Start: September 30, 2024 End: September 30, 2024 Team Status: Inactive Member Role/Relationship Status Dates Dr. Breanna Obrien MD Primary Care Provider Active Start: October 13, 2024 End: October 13, 2024 Dr. Sanjiv Cancino MD Attending Provider Active Start: October 13, 2024 End: October 13, 2024 Dr. Sanjiv Cancino MD Referring Provider Active Start: October 13, 2024 End: October 13, 2024 Team Status: Active Member Role/Relationship Status Dates Dr. Breanna Obrien MD Primary Care Provider Active Start: October 13, 2024 Dr. Sanjiv Cancino MD Attending Provider Active Start: October 13, 2024 Dr. Sanjiv Cancino MD Referring Provider Active Start: October 13, 2024 Dr. Sanjiv Cancino MD Other Provider Active Star t: October 13, 2024 Goals (unrecognized section and content) Goals may be documented in a n alternate sectionGoals may be documented in an alternate section FOR RECORDS PERTAINING TO PATIENTS [...] BE BASED ON THE PRIMARY CLINICAL RECORDS. [employer] provides no warranty or guarantee of the accuracy or completeness of information in this document.
--- NOTE | 2024-10-14 07:51 | OP.PCM_ITS ---
Operative Report (Standard) Operative Information Date of Procedure: 10/13/24 Pre-Operative Diagnosis: 1) left small finger mass Post-Operative Diagnosis: Same Surgery/Procedure Performed: 1) Excision of left small finger mass, 1 x 1 cm, left small finger, CPT: 31332 berry grower: Yes Single Fold Machine Operator: Jasson Ch Tasks completed by surgical first assistant: Retracting Type of Anesthesia: Local MAC (9 cc of 1% lidocaine and 1% Marcaine for digital block) RN Documented Start/Stop Times: Operation Date: 10/13/24 13:45 Case Time Into Pre-Op 10/13/24 12:13 Out of Pre-Op 10/13/24 14:18 Anesthesia Start 10/13/24 14:21 Into Room 10/13/24 14:21 Procedure Start 10/13/24 14:50 Procedure End 10/13/24 15:20 Anesthesia End 10/13/24 15:25 Out of Room 10/13/24 15:25 Into Recovery 10/13/24 15:27 Into Phase II Recovery 10/13/24 15:47 Out of Recovery 10/13/24 15:47 Out of Phase II 10/13/24 16:29 Procedure Start Time: 14:50 Procedure Stop Time: 15:20 Select all DRAINS/GRAFTS/IMPLANTS that apply: None Estimated Blood Loss: Minimal Specimen collected: Yes Description of specimen(s) removed: Tumor was sent to pathology Description of surgery: Indications: Maria Isabel Myers is a delightful 64-year-old female with a left small finger mass on the dorsal ulnar aspect near the DIP joint. She presents today for excision. She understands the risk benefits and alternatives to the procedure. Procedure details: Patient was correct identified in preoperative holding and marked. I showed her the planned incision and she was in agreement with the site sully. She was taken back to the operating room where she was administered sedation and a digital block as above. She was prepped and draped in sterile fashion and a tourniquet was insufflated to 250 mmHg on her left arm. A timeout was performed. 15 blade scalpel was used to make a direct incision over the mass in a curvilinear fashion and dissection with tenotomy scissors was then carried out carefully around the mass. Careful dissection of the digital ulnar neurovascular bundle (which was identified and protected) was performed as the mass was immediately adjacent to the structures and was pushing on them. The mass was also noted to be pushing on the extensor mechanism and was beneath the terminal slip of the extensor mechanism, however it did not appear to be extending into the joint (dorsal aspect of the joint was visualized and there was no tumor in the joint). The tumor was removed in 1 piece along with the capsule around the tumor under 3.5X loupe magnification. The tumor measured 1 x 1 cm. The joint appeared stable at the end of the case, as well as the terminal slip. The wound was irrigated with copious farida normal saline. The tourniquet was let down and hemostasis obtained with bipolar electrocautery and then simple closure with 4-0 nylon interrupted suture was performed. Patient tolerated the procedure well. Xeroform Rj, and AlumaFoam splint and Coban were applied, with the DIP joint in extension. She was awakened and taken to the PACU in stable condition Postoperative plan: Follow-up in 1 week to review pathology and for wound check. Surgical Findings: * Consistent with giant cell tumor clinically * Did not appear to be within the DIP joint * Was growing underneath and pushing a side the terminal slip region of the extensor tendon, and was immediately adjacent to the ulnar digital nerve. Complications Complications: No Admit VTE Documentation VTE Mechan Device Prophylaxis: SCD's
== END 2024-10-13 16:29 | disposition home or self-care (01) ==
LOC: SDC 12:02 → AC 12:05
PROVIDERS: PCP Internal Medicine; Referring Provider Surgery Plastic and Reconstructive Surgery; Visit Provider Surgery Plastic and Reconstructive Surgery
PROC: (CPT 26055; principal; 2024-10-13 13:35)
DX: D48.19 Other specified neoplasm of uncertain behavior of connective and other soft tissue (principal); I10 Essential (primary) hypertension; Z90.89 Acquired absence of other organs; Z79.890 Hormone replacement therapy; Z79.899 Other long term (current) drug therapy
CPT/HCPCS: 26116; 01810; 88304; 88307; J2405